=== PATIENT | male | born 1935 | race Caucasian/White ===

== ENCOUNTER 2017-05-19 20:50 | Inpatient (IN) | payer MEDICARE ==
[~2017-05-19] VITALS: Ht 172.7 cm; Wt 89.7 kg
[~2017-05-19 20:50] MED LIST: ACET1TAB12 PO; ASCO500C6 PO; ASPI-973 PO; B1/B1TAB5 PO; CALC-243 PO; CHOL200047 PO; FLAX100010 PO; FOLI1TAB18 PO; LEVO25TA5 PO; MAGN400T4 PO; MULT-1018 PO; NORT50CA PO; PRD5T PO; UBID100T7 PO; methotrexate PO
[2017-05-19 21:01] VITALS: BP 118/69; PULSE 114; RESP 24; O2SAT 95
--- NOTE | 2017-05-19 21:39 | ED.REPORT ---
HPI-Dyspnea / Wheezing Date of Service May 19, 2017 ED Provider: Kvng Gilmore MD The pt is a 81 y/o male w/ a hx of hypothyroidism and osteoarthritis presenting to the ED complaining of a fever. He is also experiencing chills, fatigue, low back pain, SOB, and a cough w/ pink sputum. Denies dysuria. The pt also reports his cough usually being chronic w/ yellow mucus, but is concerned w/ the new pink color he has been seeing lately. The pt reports being put on a 10 day course of antibiotics 6 weeks ago for a molar abscess and having pneumonia 5-6 years ago. Nursing Notes Stated Complaint: HIGH FEVER,FAST PULSE Chief Complaint: Fever Nursing Notes Reviewed: Yes ([employer]LastRoom, Diamond T. Livestocks not reconciled) Allergies: Coded Allergies: Sulfa (Sulfonamide Antibiotics) (Verified Allergy, Severe, rash, 07/30/16) oxycodone (Verified Allergy, Unknown, paradoxical response "not myself", 07/30/16) Scheduled ([methotrexate]) 6 TAB PO only Ascorbic Acid (Vitamin C) 500 Mg Capsule.er 500 MG PO DAILY Aspirin (Aspirin) 81 Mg Tablet 81 MG PO DAILY B1/B2/Niacin/B12/Protease (B-Complex with B-12 Tablet) 1 Each Tablet 1 EACH PO BID Calcium Carbonate/Vitamin D3 (Calcium 600 + Vit D Tablet) 1 Each Tablet 1 EACH PO BID Cholecalciferol (Vitamin D3) (Vitamin D3) 2,000 Unit Capsule 4,000 UNIT PO DAILY Flaxseed (Flaxseed Oil) 1,000 Mg Capsule 1,000 MG PO DAILY Folic Acid (Folic Acid) 1 Mg Tablet 1 MG PO BID Levothyroxine (Levothyroxine) 25 Mcg Tablet 37.5 MCG PO DAILY Magnesium Oxide (Magnesium Oxide) 400 Mg Tablet 650 MG PO DAILY Multivitamin (Multi Vitamin Daily) 1 Each Tablet 1 EACH PO DAILY Nortriptyline (Nortriptyline) 50 Mg Capsule 50 MG PO BID Prednisone (PredniSONE) 5 Mg Tab 5 MG PO DAILY Ubidecarenone (Coenzyme Q10) 100 Mg Tablet 100 MG PO DAILY Scheduled PRN Acetaminophen/Codeine 300-30mg (Tylenol/Codeine #3) 1 Each Tablet 1 EACH PO QID PRN PRN PRN General Time Seen by MD: 21:35 Chief Complaint Other (Fever) Hx Obtained From: Patient, Spouse Arrived By: Walk-in Sudden in Onset?: Yes Symptom Duration: Since onset Recent Healthcare: No recent hospitalization, Recent doctor visit Past Medical History Past Medical History Monoclonal gammopathy of undetermined significance History rheumatoid arthritis on low dose prednisone and methotrexate and Plaquenil Peripheral neuropathy Severe osteoarthritis Hypothyroidism History complete right shoulder rotator cuff tear sign peripheral artery disease Carotid artery stenosis Past Surgical History Bilateral total knee replacement Bilateral total hip arthroplasty Lumbar spine fusion Laminectomy Smoking History Former Smoker (with after 26 years of smoking in the year 1999) Social History Alcohol Use: Denies alcohol use Drug Use: Denies drug use Other Social History: Ambulatory Status Independent Review of Systems Constitutional: Reports: Chills, Fatigue, Fever Respiratory: Reports: Prod cough, brown, Shortness of breath Musculoskeletal: Reports: Back pain (lower ) Complete sys rev & neg: except as marked. Male: Denies Dysuria Physical Exam Fatigued Initial Vital Signs Vital Signs (First) Date Time Temp Pulse Resp B/P Pulse Ox O2 Delivery O2 Flow Rate FiO2 05/19/17 21:01 38 114 24 118/69 95 Room Air Initial VS: Reviewed, Vital signs abnormal Head / Eyes: Atraumatic, Normocephalic, PERRL ENT: Mucous membranes moist, Conjunctiva normal, No scleral icterus Abdomen / GI: Soft, Non-tender Skin: Warm, Dry, No cyanosis Neurologic: Alert, Oriented, Nonfocal Psychiatric: Mood/affect normal, Behavior normal, Normal thought content General/Constitutional: Awake, Alert Neck: Atraumatic, Supple, Full range of motion Respiratory / Chest: Breath sounds = bilat, No respiratory distress Diminished Breath Sounds: Positive: Decreased bilateral Tachypnic Pt can converse Cardiovascular: Heart rate NL, Regular rhythm Heart Sounds / Murmur: Positive: Murmur present... (II/, chronic ) Chronic trace edema controlled w/ compression stockings Interpretation & Diagnostics Lab Results Interpretation Result Diagram: 05/19/17222405/19/172224 Test 05/19/17 22:25 White Blood Count 13.3th/mm3 (3.8-10.1) Red Blood Count 2.77mil/mm3 (4.40-5.80) Hemoglobin 9.0g/dL (13.8-17.2) Hematocrit 29.2% (41.0-50.0) Mean Corpuscular Volume 105fL (81-100) Mean Corpuscular Hemoglobin 32.5pg (27.0-35.0) Mean Corpuscular Hemoglobin Concent 30.8% (32.0-37.0) Red Cell Distribution Width 13.3% (12.3-15.4) Platelet Count 286bil/L (150-400) Neutrophils (%) (Auto) 68.8% (40-74) Lymphocytes (%) (Auto) 23.1% (14-46) Monocytes (%) (Auto) 6.3% (4-12) Eosinophils (%) (Auto) 1.3% (0-5) Basophils (%) (Auto) 0.2% (0-3) Sodium Level 138mEq/L (134-144) Potassium Level 4.0mEq/L (3.5-5.2) Chloride Level 100mEq/L (97-108) Carbon Dioxide Level 22mmol/L (18-29) Blood Urea Nitrogen 23mg/dL (8-27) Creatinine 1.27mg/dL (0.76-1.27) Estimat Glomerular Filtration Rate 58mL/min (>59) Glucose Level 200mg/dL (60-99) Lactic Acid Level 2.1mmol/L (0.4-2.0) Calcium Level 8.4mg/dL (8.5-10.1) Total Bilirubin 0.4mg/dL (0.0-1.2) Aspartate Amino Transf (AST/SGOT) 29U/L (0-50) Alanine Aminotransferase (ALT/SGPT) 19U/L (0-44) Alkaline Phosphatase 82U/L (25-160) Troponin T 0.010ug/L (0.0-0.011) Pro-B-Type Natriuretic Peptide 2326pg/mL (0-486) Total Protein 7.1g/dL (6.4-8.4) Albumin 3.5g/dL (3.4-5.0) Procalcitonin 0.09ng/mL (0.00-0.08) Lab Results Interpretation: CBC positive leukocytosis, mild anemia CMP mild hyperglycemia next and lactic acid marginal elevation ProBNP nonspecific elevation Blood cultures pending ECG Interpretation ECG Interpretation: Rate [address] elevation, consider anterior injury Time: 21:33 Interpreted by: ED physician X-Ray Chest Interpretation Chest Xray Interpretation: IMPRESSION: Question of vascular prominence from fever and tachycardia. No interstitial edema is seen. Patchy bilateral densities could be from extensive bilateral pneumonias as well. Question of 15 mm gallstone in the right upper quadrant Dictated by: Kwan Mariscal M.D. on 05/19/2017 at 22:00 Approved by: Kwan Mariscal M.D. on 05/19/2017 at 22:02 View: Portable, 1 view Interpretation / Wet Read by: Interpret - Radiologist Re-Eval/Medical Decision Med Decision/Clinical Course This is an 81-year-old male on low-dose immunosuppressants with chronic steroid secondary to rheumatoid arthritis who presents complaining of fevers, low bit of cough and shortness of breath. He mainly notices fatigue, then developed chills and his took his temperature noted elevated temperature, to the ED. Here he is noted sat 90-93% in room air reports is only around 96% polys ex- smoker quit in 1999 after 30 years. He denies abdominal pain vomiting diarrhea dysuria rash or additional complaint. Denies chest pain. The patient is febrile, tachycardic as well. His chest x-ray to me is more suspicious for pneumonia, but the differential includes CHF. Laboratories reveal leukocytosis and lactic acid elevation-we does also have a marginal proBNP elevated. However he has a chronic murmur, consistent proBNP may be expected, and I think in the setting of a fever tachycardia and findings concerning for sepsis that antibiotic treatment for probable pneumonia is warranted. The patient resents with community acquired pneumonia, but given the concern for underlying sepsis and immunosuppression hospital protocol for sepsis was initiated. Additionally a stress dose steroid dose was administered. Patient received Tylenol and fluids as well. He is on chronic Tylenol 3, and requested that first Tylenol dosing and it was given. Patient is being admitted for continued antibiotics and management. Source of Hx: Old records Re-Evaluation/Progress : Time of Eval: 22:45 Re-Evaluation/Progress Note: Pt rechecked. Informed pt of need for admission. Pt understands and agrees with plan for admission. All questions addressed. Consultation : Referral / Consult Name: Majo Malin DO Consulted With: Hospitalist Call Returned at: 22:47 Strings Teacher: Will see patient, Agrees with eval, Agrees with plan, Accepts admit Differential Diagnosis: Positive: Pneumonia, Negative: Acute coronary syndrome, Allergic reaction, Cardiogenic shock, Pulmonary embolism, Respiratory failure Counseled Regarding: Diagnosis, Lab results, Need for admission Discharge & Departure Impression: Primary Impression: Pneumonia Pneumonia type: due to unspecified organism Laterality: unspecified laterality Lung location: unspecified part of lung Qualified Code: J18.9 - Pneumonia, unspecified organism Additional Impressions: Sepsis Sepsis type: sepsis due to unspecified organism Qualified Code: A41.9 - Sepsis, unspecified organism Chronic steroid use Disposition: ADMITTED TO HOSPITAL Discharge Condition All VS Reviewed: Yes Condition: Stable Referrals: Tyler Luna MD (PCP) Scribe Attestation Portions of this note were transcribed by Ciro Rivas. I, Dr. Gilmore personally performed the history, physical exam and medical decision-making; I reviewed and confirmed the accuracy of the information in the transcribed note. copies to: Tyler Luna MD, Matthew F MD May 19, 2017 21:39 Ciro Rivas May 19, 2017 22:40
[2017-05-19] MEDS ORDERED: 0.9% Sodium Chloride 1,000 ML IV ONE (21:40)
[2017-05-19] MEDS ORDERED: levoFLOXacin Inj 750 MG in IV Premix 1 EACH IV ONE (22:00)
[2017-05-19] MEDS ORDERED: Azithromycin Inj 500 MG in Dextrose 5% w/Vial Mate 250 ML IV ONE (22:00)
[2017-05-19] MEDS ORDERED: Vancomycin Dose per Pharmacist XX ONE ×2 (22:00→23:45)
[2017-05-19] MEDS ORDERED: Codeine-APAP 30-300 mg Tablet PO ONE (22:00)
[2017-05-19] MEDS ORDERED: Albuterol 2.5 mg/3 mL Inhalation Solution NEB ONE (22:00)
[2017-05-19] MEDS ORDERED: Hydrocortisone 50 mg/mL 2 mL Inj IVPUSH ONE (22:00)
[2017-05-19] MEDS ORDERED: cefTRIAXone Inj 2,000 MG in Dextrose 5% Minibag Plus 50 ML IV ONE (22:00)
[2017-05-19] MEDS ORDERED: Piperacillin-Tazo 3.375 Gm Inj 3.375 GM in Dextrose 5% Minibag Plus 50 ML IV ONE (22:00)
--- NOTE | 2017-05-19 22:05 | DRSVH ---
PROCEDURE: X-RAY CHEST ONE VIEW, PORTABLE ([id number]) INDICATIONS: temp, tachycardia TECHNIQUE: One view of the chest was acquired. COMPARISON: None. FINDINGS: Surgical changes and devices: None. Lungs and pleura: Allowing for angulation of the lordotic portable film the right hemidiaphragm is a gain noted to be elevated. Vasculature is prominent and indistinct as are the joycelyn. The appearance wo uld suggest vascular overload but no interstitial edema or effusion is seen. Bilateral pneumonias can cause a similar appearance.. Mediastinum: Mediastinal contours appear normal. Heart size is normal. Bones and chest wall: No suspicious bony lesions. Overlying soft tissues appear unremarkable. Ther e is a 15 mm calcification in the right upper quadrant suggesting the possibility of a gallstone but something in the GI tract could cause a similar appearance. IMPRESSION: Question of vascular prominence from fever and tachycardia. No interstitial edema is seen . Patchy bilateral densities could be from extensive bilateral pneumonias as well. Question of 15 mm gallstone in the right upper quadrant Dictated by: Kwan Mariscal M.D. on 05/19/2017 at 22:00 Approved by: Kwan Mariscal M.D. on 05/19/2017 at 22:02
[2017-05-19] MEDS ORDERED: Vancomycin Inj 1,500 MG in 0.9% Sodium Chloride 500 ML IV ONE (22:30)
[2017-05-19 22:43] VITALS: PULSE 74; RESP 18; O2SAT 98
[2017-05-19 23:00] LABS: BASOPHILS % (AUTO) 0.2 % (0-3); EOSINOPHILS % (AUTO) 1.3 % (0-5); MONOCYTES % (AUTO) 6.3 % (4-12); Mean Corpuscular Hemoglobin 32.5 pg (27.0-35.0); Mean Corpuscular Volume 105 fL (81-100); NEUTROPHILS % (AUTO) 68.8 % (40-74); Platelet Count 286 bil/L (150-400); TROPONIN T 0.01 ug/L (0.0-0.011)
[2017-05-19 23:29] LABS: APPEARANCE,URINE HAZY (CLEAR,HAZY); COLOR,URINE YELLOW (YELLOW)
[2017-05-19 23:30] LABS: OCCULT BLOOD,URINE NEGATIVE (NEGATIVE); UROBILINOGEN,URINE NORMAL (NORMAL)
[2017-05-19 23:39] VITALS: BP 132/39; PULSE 114; RESP 18; O2SAT 93
[2017-05-19] MEDS ORDERED: 0.9% Sodium Chloride 1,000 ML IV SCH (23:43)
[2017-05-19] MEDS ORDERED: Polyethylene Glycol (PEG) 17 Gm Powder PO PRN (23:45)
[2017-05-19] MEDS ORDERED: Alum-Mag Hydrox-Simeth 30 mL Suspension PO PRN (23:45)
[2017-05-19] MEDS ORDERED: Ondansetron 2 mg/mL 2 mL Inj IVPUSH PRN (23:45)
[2017-05-19] MEDS ORDERED: LACT1CAP65 PO (23:50)
[2017-05-19] MEDS ORDERED: SACC250C PO (23:50)
[2017-05-20] VITALS (11 sets, daily range): BP systolic 118–144; BP diastolic 66–76; PULSE 91–123; RESP 18–22; O2SAT 91–96
[2017-05-20] MEDS: Sodium Chloride LOK Flush 10 mL Syringe IVFLUSH SCH ×3 (00:30→16:53)
--- NOTE | 2017-05-20 00:30 | NUR ---
Admission to [facility] Room 2003 Pt arrived on a gurney with to room 2003 at approximately 0030. ED RN brought pt's next IV ABX up to the room along with the pt. Pt was able to ambulate on own and stand on scale prior to being placed into bed. Pt's VSS and pt is on 1L NC with SpO2 >92%. Pt's lungs have crackles in the lower lobes bilaterally and in the middle lobe on the right side upon auscultation. Pt continues to receive IV ABX and nare swabs for MRSA and PCR have been sent to lab. Pt has a sputum sample cup at the bedside. Pt has had a fall within the last 3 months and therefore has a margarita pad placed under them with a Booth Code of 60 at this time.
[2017-05-20] MEDS ORDERED: 0.9% Sodium Chloride 100 ML ONE (01:09)
[2017-05-20] MEDS: Heparin 5,000 Unit/mL Inj SUBQ SCH ×3 (01:29→16:52)
[2017-05-20 01:36] LABS: Magnesium 2.1 mg/dL (1.6-2.6); Phosphorus 2.1 mg/dL (2.5-4.9)
[2017-05-20 02:46] LABS: BASOPHILS % (AUTO) 0.1 % (0-3); EOSINOPHILS % (AUTO) 0.1 % (0-5); MONOCYTES % (AUTO) 5.5 % (4-12); Mean Corpuscular Hemoglobin 32.4 pg (27.0-35.0); Mean Corpuscular Volume 105.1 fL (81-100); NEUTROPHILS % (AUTO) 87.1 % (40-74); Platelet Count 270 bil/L (150-400)
[2017-05-20] MEDS: Cefepime Inj 2,000 MG in Dextrose 5% Minibag Plus 100 ML IV SCH ×2 (03:12→07:51)
--- NOTE | 2017-05-20 04:29 | PCM.HPMED ---
Subjective Date of Service May 20, 2017 Primary Provider: Admitting Physician: Majo Malin DO Primary Care Physician: Tyler Luna MD Attending Physician: Majo Malin DO Admit Status: From the Emergency Department Chief Complaint: Shortness of breath History of Present Illness: Alice gonzalez 81-year-old gentleman with medical history rheumatoid arthritis, MGUS, on methotrexate, Plaquenil, prednisone chronically, hypertension, chronic neuropathy, presents after having an episode feeling " very cold, and found to have a temperature at home of 101F after a month of worsening shortness of breath and change in chronic cough. Says he always has a dry cough, particularly after he eats he notices he has to clear his throat, he denies any aspiration events in the past. His claims that he has dentures and does not believe he has had any trouble swallowing or any change in his swallowing ability. On presentation in the emergency room temperature of 38 Celsius, pulse 114, respiratory rate 24, blood pressure 118/69, 95% on room air. White count 13.3, hemoglobin 9.0 Electrolytes were normal, glucose 200, lactic acid 2.1, calcium 8.4, pro-BNP 2326, pro calcitonin 0.09. Trop 0.01 Chest x-ray showed no interstitial edema, patchy bilateral densities possibly from extensive bilateral pneumonias, incidentally possible 15 mm gallstone in right upper quadrant. EKG Heart rate 116, sinus rhythm, regular axis, "ST elevation, consider anterior injury" He denies any lightheadedness, dizziness, nausea vomiting diarrhea, chest pain, shortness of breath at rest, change in neuropathy pains, no weakness, no abdominal pain, no change in chronic headaches, no difficulty swallowing. He was admitted to the hospital for sepsis, community-acquired pneumonia however given treatment with methotrexate, Plaquenil, and prednisone he is presumed to be immunosuppressed being treated for MRSA, pseudomonal, and typical organisms. Review of Systems: A comprehensive review of systems was conducted with the patient and found to be negative except as above in the history of presenting illness. Allergies Coded Allergies: Sulfa (Sulfonamide Antibiotics) (Verified Allergy, Severe, rash, 07/30/16) oxycodone (Verified Allergy, Unknown, paradoxical response "not myself", 07/30/16) Home Medications Scheduled ([methotrexate]) 6 TAB PO only Ascorbic Acid (Vitamin C) 500 Mg Capsule.er 500 MG PO DAILY Aspirin (Aspirin) 81 Mg Tablet 81 MG PO DAILY B1/B2/Niacin/B12/Protease (B-Complex with B-12 Tablet) 1 Each Tablet 1 EACH PO BID Calcium Carbonate/Vitamin D3 (Calcium 600 + Vit D Tablet) 1 Each Tablet 1 EACH PO BID Cholecalciferol (Vitamin D3) (Vitamin D3) 2,000 Unit Capsule 4,000 UNIT PO DAILY Flaxseed (Flaxseed Oil) 1,000 Mg Capsule 1,000 MG PO DAILY Folic Acid (Folic Acid) 1 Mg Tablet 1 MG PO BID Levothyroxine (Levothyroxine) 25 Mcg Tablet 37.5 MCG PO DAILY Magnesium Oxide (Magnesium Oxide) 400 Mg Tablet 650 MG PO DAILY Multivitamin (Multi Vitamin Daily) 1 Each Tablet 1 EACH PO DAILY Nortriptyline (Nortriptyline) 50 Mg Capsule 50 MG PO BID Prednisone (PredniSONE) 5 Mg Tab 5 MG PO DAILY Ubidecarenone (Coenzyme Q10) 100 Mg Tablet 100 MG PO DAILY Scheduled PRN Acetaminophen/Codeine 300-30mg (Tylenol/Codeine #3) 1 Each Tablet 1 EACH PO QID PRN PRN PRN PMH Monoclonal gammopathy of undetermined significance History rheumatoid arthritis on low dose prednisone and methotrexate and Plaquenil Peripheral neuropathy Severe osteoarthritis Hypothyroidism History complete right shoulder rotator cuff tear sign peripheral artery disease Carotid artery stenosis Surgical History Bilateral total knee replacement Bilateral total hip arthroplasty Lumbar spine fusion Laminectomy Family History Father from congestive heart failure at age 82. Mother at 65 years old from myocardial infarction. Brother "waiting to " from congestive heart failure. Social History Hx Alcohol Use: Yes (rare) Hx Substance Use: No Hx Tobacco Use: Yes (QUIT 12 YEARS AGO) Smoking Status: Former Smoker (with after 26 years of smoking in the year 1999) Exam Vital Signs Vital Sign - Last Date Time Temp Pulse Resp B/P Pulse Ox O2 Delivery O2 Flow Rate FiO2 05/19/17 23:39 114 18 132/39 93 Nasal Cannula 2 05/19/17 21:01 38 Intake and Output 05/19/17 05/19/17 05/20/17 Cumulative From/Thru 15:00 23:00 07:00 05/19/17 21:01 - 05/19/17 22:09 Intake Total 999 ml 999 ml Balance 999 ml 999 ml Intake IV Total 999 ml 999 ml Exam General: Laying in bed, no apparent distress. HEENT: Normocephalic, atraumatic, EOMI grossly, nasal cannula in place, mucous membranes moist, neck supple without lymphadenopathy, conjunctiva pink. Cardiovascular: Tachycardic, regular rhythm, 4/6 systolic blowing murmur, peripheral pulses 2/4 equal bilateral, upper and lower extremities. Pulmonary: Clear to auscultation bilaterally, faint rails bilateral bases, unable to appreciate any wheeze or rhonchi. Occasional cough. Abdominal: Soft to palpation, bowel sounds present 4, no hepatosplenomegaly. Negative rebound. Extremities: No edema appreciated. No tenderness, asymmetry. Neuro: Neurologically grossly intact, strength is equal bilaterally upper and lower extremities. MSK: Able to move extremities on their own volition, strength 5 out of 5 equal bilaterally to upper and lower extremities. Psych: Appropriate and congruent affect. Alert to person place and time, intact remote memory. Lab and Diagnostics Result Diagram: 05/19/17222405/19/172224 X-Rays, CTs and MRIs Chest x-ray performed 05/19/2017 IMPRESSION: Question of vascular prominence from fever and tachycardia. No interstitial edema is seen. Patchy bilateral densities could be from extensive bilateral pneumonias as well. Question of 15 mm gallstone in the right upper quadrant Dictated by: Kwan Mariscal M.D. on 05/19/2017 at 22:00 12-lead ECG Rate 116, regular rhythm, normal axis, MN interval 116, QTC 405, "Sinus tachycardia. ST elevation, consider anterior injury" Assessment & Plan 81-year-old gentleman with rheumatoid arthritis, MGUS, immunosuppressed with methotrexate, prednisone, Plaquenil presents with 1 month of worsening shortness of breath, change in chronic cough, episode of severe chills and cold sweat, found to have elevated white count and chest x-ray demonstrating findings consistent with pneumonia, admitted for sepsis and treatment of community-acquired pneumonia complicated by immunosuppression. Acute sepsis, present on admission, active White blood count 13.3, lactic acid 2.1, temperature 38, pulse 114, respiratory rate 24. Source identified as pneumonia, treatment as below Recheck lactic acid every 2 hours until normal Blood cultures 2 Normal saline 125 mL per hour Acute Community-acquired pneumonia, present on admission, active Curb 65 score of 1 for age No recent hospitalizations within the last 5 years, however given immunosuppression patient at increased risk for atypical infections. Tx: levofloxacin 750 mg daily, cefepime 2g q12hrs, vancomycin Dosed per Pharm, conferring antipseudomonal, anti-Legionella, MRSA coverage. MRSA screen, urine Legionella and strep pneumonia antigens Respiratory viral PCR Sputum samples Gram stain culture and sensitivity Speech evaluation given history of having to clear his throat after eating Chronic immunosuppression, present on admission, active Continue Plaquenil, continue prednisone, discontinue/hold methotrexate. Infectious disease consultation Elevated BNP, unknown chronicity, present on admission, active BNP 2326 on admission, Patient denies history of congestive heart failure, significant family history coronary artery disease, congestive heart failure. Complete echocardiogram to be performed to assess cardiac structure and function. Repeat chest x-ray in the a.m. to assess pulmonary for edema Acute Leukocytosis, present on admission, active Attributed to pulmonary infection Monitor daily with a.m. labs Acute Elevated blood glucose, present on admission, active Blood glucose 200 on admission, patient denies history of diabetes Hemoglobin A1c Recheck with a.m. labs Chronic rheumatoid arthritis, controlled,. Continue home prednisone MGUS, present on admission, Stable. Continue Plaquenil DVT prophylaxis subcutaneous Heparin GI prophylaxis as needed Pain management: Acetaminophen with codeine continued from home Patient admitted to inpatient status with anticipated length of stay greater than two midnights given complexity diagnosis, necessary treatments, and risk of adverse events. Patient is DNR/DNI GI Prophylaxis: Not indicated VTE Prophylaxis: Sub-Q Heparin (Unfractionated) Resuscitation Status: DNR/DNI:Do Not Resuscitate/Intubate Conner Velazco DO May 20, 2017 00:21
[2017-05-20] MEDS ORDERED: 0.9% Sodium Chloride 1,000 ML IV SCH (05:00)
[2017-05-20] MEDS ORDERED: 0.9% Sodium Chloride 1,000 ML IV PRN (05:28)
--- NOTE | 2017-05-20 06:44 | PCM.CONPHA ---
Subjective Date of Service: May 20, 2017 Requesting Provider: Conner Velazco DO Shortness of breath History of Present Illness sepsis, suspected community acquired pneumonia Reason for Pharmacy Consult: Vancomycin Dosing Objective Assessment/Plan Assessment/Plan A/ - 81 y/o male patient admitted in for sepsis, secondary to community acquired pneumonia and needed Vancomycin therapy for empiric coverage since he is immunosuppressed on prednisone chronically for severe osteoarthritis - Febrile, WBC: 13.3, lactic acid: 2.1/2.4; blood cultures, MRSA (PCR), sputum are pending - In ED, sepsis protocol initiated consisted of Rocephin, Zosyn, Azithromycin, and Vancomycin 1500mg loading dose - Other antibiotics: Levaquin, cefepime - Wt: 96.1, ht: 172.7cm, BMI: 32.2 kg/m2; SCr: 1.27 (baseline), estimated clearance ~ 50 ml/min, t1/2~15 hrs, Vd~58 L P/ - Give Vancomycin 750mg iv q12h. Trough level order before 3rd dose @0030 . This regimen would produce a trough around 18 Pharmacy will continue to monitor daily and make necessary adjustment Thank you for consulting clinical pharmacy in the care of this patient Ari Farrar May 20, 2017 06:43
[2017-05-20] MEDS: Codeine-APAP 30-300 mg Tablet PO PRN ×2 (06:49→16:56)
[2017-05-20] MEDS: Ascorbic Acid 500 mg Tablet PO SCH (07:53)
[2017-05-20] MEDS: Calcium Carbonate (Oyster Shell) 500 mg Tablet PO SCH ×2 (07:54→22:40)
[2017-05-20] MEDS: predniSONE 5 mg Tablet PO SCH (08:03)
[2017-05-20 08:24] LABS: APPEARANCE,URINE HAZY (CLEAR,HAZY); COLOR,URINE STRAW (YELLOW); OCCULT BLOOD,URINE NEGATIVE (NEGATIVE); PH,URINE 5.5 (5.0-8.0); UROBILINOGEN,URINE NORMAL (NORMAL)
[2017-05-20] MEDS ORDERED: FLAXSEED 1000 MG PO SCH (08:30)
[2017-05-20] MEDS ORDERED: levoFLOXacin Inj 750 MG in IV Premix 1 EACH IV SCH (08:30)
[2017-05-20] MEDS ORDERED: UBIDECARENONE 100 MG PO SCH (08:30)
--- NOTE | 2017-05-20 11:16 | NUR ---
Social Work: Initial Assessment/Multidisciplinary Rounds D: Per EMR review, pt is an 81 year old male admitted for pneumonia, sepsis. Pt is Medicare with A[employer] supplement; pt has no LTC or VA insurance. PCP is Tyler Luna MD. NOK is Nessa Knight, , . Advanced directives on file. No RA score entered at this time. Pt discussed in am rounds. Capacity for self care and needs discussed. No concerns or needs identified. Pt has been ambulating and participating in his own self care during admission. MANAGER SEARCH ENGINE met with the patient and at bedside. Sw role explained, contact info and d/c planning checklist provided. Pt lives on [address] with his in a single story home. pt has 5 steps to enter his home in which he is I with. Pt uses a cane and walker for ambulation. Pt continues to drive and is I with all of his own self care at home. Pt has a brief history with Meggan HENRIQUEZ however did not find that this was useful. 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 Pt has never required SNF. Patient and both anticipate pt to be able to return home and to follow up with providers as an outpatient. Pt and are requesting a different attending provider for the patient's care however would not specify as to why. MANAGER SEARCH ENGINE has provided the contact information for a patient advocate and the patient complaint hotline. Attending provider and charge entry specialist made aware of pt/ request. A: Pt who is I at baseline P: Anticipate discharge home once medically stable; MANAGER SEARCH ENGINE to continue to follow to assess for d/c needs. SACHIN Collado Addendum: 05/20/17 at 1124 by LIZ ROBBINS Amended: Links added.
[2017-05-20] MEDS ORDERED: Vancomycin Inj 750 MG in 0.9% Sodium Chloride 250 ML IV SCH (13:00)
[2017-05-20] MEDS ORDERED: Vancomycin Inj 1,250 MG in 0.9% Sodium Chloride 250 ML IV SCH (13:00)
--- NOTE | 2017-05-20 13:06 | DRSVH ---
[facility] [address] [place] [address] Echocardiogram Report Name: OBINNA JOHN Study Date: 05/20/2017 Height: 68 in Hospital Exam Location: [facility] Weight: 212 lb Gender: Male BSA: 2.1 m2 : 1935 Age: 81 yrs BP: 135/73 mmHg Reason For Study: Dyspnea, Elevated BNP Ordering Physician: Performed By: Florencia Solis Referring Physician: Smita Luna Interpretation Summary Left ventricular size is at the upper limits of normal. Left ventricular systolic function is moderately reduced. The ejection fraction is estimated to be 35-40%. Compared to the prior exam, left ventricular function is moderately decreased. There is hypokinesis along the inferior, inferoseptal, and part of the distal anterolateral and apcial lateral wall. Assessment of diastolic parameters suggests a pseudonormalization pattern, consistent with elevated filling pressures. This is significantly increased compared to the previous study. The right ventricle is normal in size and function. The right ventricular systolic pressure is estimated at 57 mmHg assuming a right atrial pressure of 15 mm Hg. The left atrium is moderately dilated. Right atrial size is normal. There is moderate mitral regurgitation. Compared to the prior echo study, there has been an increase in the severity of mitral regurgitation. There is no hemodynamically significant valvular aortic stenosis. The aortic valve is moderately calcified. There is mild aortic regurgitation. Compared to the prior echo study, there has been a decrease in the severity of aortic regurgitation. There is no other significant valvular heart disease. The aortic root is normal size. Procedure: A two-dimensional transthoracic echocardiogram with color flow and Doppler was performed. The study quality was technically adequate. Comparison is made with the echocardiogram of 07/29/2015. The patient was in normal sinus rhythm during the exam. Left Ventricle: Left ventricular size is at the upper limits of normal. Left ventricular wall thickness is at the upper limits of normal. Left ventricular systolic function is moderately reduced. The ejection fraction is estimated to be 35-40%. Compared to the prior exam, left ventricular function is moderately decreased. There is hypokinesis along the inferior, inferoseptal, and part of the distal anterolateral and apcial lateral wall. Assessment of diastolic parameters suggests a pseudonormalization pattern, consistent with elevated filling pressures. This is significantly increased compared to the previous study. Right Ventricle: The right ventricle is normal in size and function. Atria: The left atrium is moderately dilated. Right atrial size is normal. There is no Doppler evidence for an interatrial shunt. Mitral Valve: There is mild mitral annular calcification. The mitral valve leaflets appear mildly thickened, but open well. There is moderate mitral regurgitation. Compared to the prior echo study, there has been an increase in the severity of mitral regurgitation. Aortic Valve: The aortic valve is trileaflet. The aortic valve is moderately calcified. The peak aortic velocity is 2.8 m/sec. The aortic valve mean gradient is 18 mmHg. The peak aortic velocity on the previous exam was 2.6 m/sec. The calculated aortic valve area is 0.97 cm2. The aortic valve area is 1.3 centimeters squared by planimetry. There is no hemodynamically significant valvular aortic stenosis. There is mild aortic regurgitation. Compared to the prior echo study, there has been a decrease in the severity of aortic regurgitation. Tricuspid Valve: The tricuspid valve leaflets are thin and pliable. There is mild tricuspid regurgitation. The right ventricular systolic pressure is estimated at 57 mmHg assuming a right atrial pressure of 15 mm Hg. Pulmonic Valve: The pulmonic valve is normal in structure and function. There is a trace or physiologic amount of pulmonic regurgitation. There is no other significant valvular heart disease. Great Vessels: The aortic root is normal size. The ascending aorta is normal in size. The aortic arch could not be visualized. The pulmonary artery is normal size. The IVC is dilated (diameter is greater than 2.1 cm) and it collapses less than 50% with a sniff. This suggests a high right atrial pressure of 15 mm Hg. Systolic flow reversal noted in hepatic veins. Pericardium/ Pleura There is no pericardial effusion. There is no pleural effusion. MMode/2D Measurements & Calculations LVIDd: 5.8 cm LA A2 area RA long axis: 4.9 cm LVOT diam: 2.1 cm LVIDs: 4.7 cm AoV Openin.79 cm FS: 18.5 % RA area: 15.9 cm Ao root diam: 3.3 cm EPSS: 1.7 cm LA A4 area RA vol: 43.4 ml Aortic Jxn: 2.7 cm IVSd: 0.98 cm RA : 20.7 ml/m2 asc Aorta Diam: 3.1 cm LVPWd: 0.88 cmLA length (vol) LA vol: 93.7 ml LA vol index IVC diam: 2.5 cm EDV(MOD-sp2) SUSIE (plan) LV panda. diameter/BSA LV sys. diameter/BSA : 1.3 cm2 (cm/m^2): 2.8 (cm/m^2): 2.3 ESV(MOD-sp2) EF(MOD-sp2) RVD1 (basal) TAPSE: 2.1 cm Doppler Measurements & Calculations Ao V2 max MV E max bandar MV E/A: 1.4 TR max bandar : 276.5 cm/sec : 123.5 cm/sec Med Peak E' Bandar : 322.3 cm/sec Ao max PG MV A max bandar TR max PG : 30.6 mmHg : 86.5 cm/sec E/E' med: 26.3 : 41.6 mmHg Ao mean PG MV P1/2t: 40.0 msecLat Peak E' Bandar PA V2 max : 17.5 mmHg : 83.4 cm/sec LVOT Max Bandar MR ERO: 0.13 cm2 E/E' lat: 22.6 PA mean PG : 68.5 cm/sec E/e' average: 24.4 PA Accel Time SUSIE(I,D): 0.97 cm : 0.11 sec sev ratio AI P1/2t : 174.2 msec AI dec slope : 568.2 cm/s2c MV dec time MV P1/2t max bandar Ao V2 mean LV V1 max PG : 0.14 sec : 198.6 cm/sec MVA(P1/2t): 5.5 cm2Ao V2 VTI: 49.6 cm LV V1 VTI SUSIE(V,D): 0.87 cm2 : 13.7 cm MR flow rate PA V2 mean SUSIE indexed to BSA : 50.0 cm/sec (cm^2/m^2): 0.46 : 69.1 cm3/sec MR PISA radius Reading Physician:MAURY
--- NOTE | 2017-05-20 14:20 | NUR ---
Evaluation completed. Please go to "Notes" then click on "Assessments and Notes" (bottom left corner of screen). Then select appropriate discipline tab on top of screen.
--- NOTE | 2017-05-20 14:24 | DRSVH ---
PROCEDURE: X-RAY CHEST ONE VIEW, PORTABLE ([id number]) INDICATIONS: respiratory distress TECHNIQUE: One view of the chest was acquired. COMPARISON: [facility], CR, XR CHEST 1VW (PORTABLE), 05/19/2017, 21:30. FINDINGS: Surgical changes and devices: None. Lungs and pleura: Lung volumes have increased and pulmonary interstitial opacities has slightly decre ased. No pleural effusion or pneumothorax. Mediastinum: Mediastinal contours appear normal. Heart size is normal. Bones and chest wall: No suspicious bony lesions. Overlying soft tissues appear unremarkable. IMPRESSION: Decreasing pulmonary edema. Dictated by: Lamine Perry [facility] WITH [facility] Interpreted: Rashad St MD on 05/20/2017 at 9:47 Approved by: Rashad St M.D. on 05/20/2017 at 14:22
[2017-05-20] MEDS: Furosemide 10 mg/mL 2 mL Inj IVPUSH SCH ×2 (15:35→22:39)
--- NOTE | 2017-05-20 16:34 | PCM.PNMED ---
Subjective Date of Service May 20, 2017 Subjective Assessment: Patient sitting up in bed on physical exam. He appears in good spirits. Appears short of breath, having to stop for breath during speaking. States that he is ready to get up and be walking around would like to walk the halls if possible. States that he has not before spent the night in the hospital and is typically uncomfortable doing so. Events Overnight: No acute events overnight. ROS: Shortness of breath. Denies fever/chills, nausea/vomiting, headache, weakness, abdominal pain, chest pain, increased swelling in hands or feet. Exam Vital Signs Vital Sign - Last Date Time Temp Pulse Resp B/P Pulse Ox O2 Delivery O2 Flow Rate FiO2 05/20/17 12:25 36.6 102 18 133/73 91 Nasal Cannula 1.00 Intake and Output 05/19/17 05/19/17 05/20/17 Cumulative From/Thru 15:00 23:00 07:00 05/19/17 21:01 - 05/20/17 06:11 Intake Total 999 ml 546 ml 1545 ml Output Total 1575 ml 1575 ml Balance 999 ml -1029 ml -30 ml Intake Oral 546 ml 546 ml IV Total 999 ml 999 ml Output Urine Total 1575 ml 1575 ml # Voids 5 5 Exam General: No acute distress, well-developed, well-nourished HEENT: Normocephalic, atraumatic. External ears without defect. Pupils equal, round, and reactive to light and accommodation. Anicteric sclerae, moist conjunctivae. Cardiovascular: Regular rate and rhythm with no murmurs, rubs, or gallops appreciated Pulmonary: Fine rales auscultated diffusely over all lung subramanian, minor wheezes. Unable to speak in full sentences. Nasal cannula in place. Abdomen: Bowel tones present. Soft, nontender, nondistended. Extremities: No clubbing, cyanosis, trace edema in the lower legs bilaterally Skin: Normal temperature, turgor, and texture; no rash, ulcers, or subcutaneous nodules appreciated. Neurological: Cranial nerves grossly intact. Reflexes, coordination, and sensory function within normal limits. Normal muscle strength, tone, and bulk. Psychiatric: Normal mood and affect. Alert and oriented to person, place, and time IVs and Medications IV Fluids 1050 mL normal saline delivered with IV medications. Medications Reviewed: Medications were reviewed in detail Lab and Diagnostics Result Diagram: 05/20/17 0235 05/20/17 0235 X-Rays, CTs and MRIs Chest x-ray performed 05/19/2017 IMPRESSION: Question of vascular prominence from fever and tachycardia. No interstitial edema is seen. Patchy bilateral densities could be from extensive bilateral pneumonias as well. Question of 15 mm gallstone in the right upper quadrant Dictated by: Kwan Mariscal M.D. on 05/19/2017 at 22:00 12-lead ECG Rate 116, regular rhythm, normal axis, KS interval 116, QTC 405, "Sinus tachycardia. ST elevation, consider anterior injury Assessment & Plan 81-year-old gentleman with rheumatoid arthritis, MGUS, immunosuppressed with methotrexate, prednisone, Plaquenil presents with 1 month of worsening shortness of breath, change in chronic cough, episode of severe chills and cold sweat, found to have elevated white count and chest x-ray demonstrating findings consistent with pneumonia, admitted for sepsis and treatment of community-acquired pneumonia complicated by immunosuppression. Sepsis, present on admission, active Source identified as pneumonia, treatment as below Lactic acid returned to normal levels Blood cultures 2 Community-acquired pneumonia, present on admission, active No recent hospitalizations within the last 5 years, however given immunosuppression patient at increased risk for atypical infections. Continue levofloxacin 750 mg daily MRSA negative Respiratory viral PCR negative Sputum samples Gram stain culture and sensitivity pending Speech evaluation notes mild dysphasia, soft food diet initiated Chronic immunosuppression, present on admission, active Continue Plaquenil, continue prednisone, hold methotrexate. Infectious disease consultation Systolic congestive heart failure, acute on chronic, present on admission, active BNP 2326 on admission, Patient denies history of congestive heart failure, significant family history coronary artery disease, congestive heart failure. Complete echocardiogram shows decreased heart function compared to previous. Ejection fraction 35-40% Repeat chest x-ray shows decreased pulmonary edema Furosemide started 20 mg twice a day Acute Leukocytosis, present on admission, resolved Attributed to pulmonary infection Monitor daily with a.m. labs Acute Elevated blood glucose, present on admission, active Blood glucose 200 on admission, patient denies history of diabetes Hemoglobin A1c Recheck with a.m. labs Chronic rheumatoid arthritis, controlled,. Continue home prednisone MGUS, present on admission, Stable. Continue Plaquenil DVT prophylaxis subcutaneous Heparin GI prophylaxis as needed Pain management: Acetaminophen with codeine continued from home Disposition: Patient likely remain in the hospital 1-2 days for optimization of congestive heart failure and antibiotic maintenance CODE STATUS: DNR/DNI GI Prophylaxis: Not indicated VTE Prophylaxis: Sub-Q Heparin (Unfractionated) Resuscitation Status: DNR/DNI:Do Not Resuscitate/Intubate Attending Statement The patient was seen and examined together with Dr. Lopez on 05/20/17 and I have added additional information to the note above. Raj Lopez DO May 20, 2017 16:33 Jill Potter DO May 20, 2017 18:44 Raj Lopez DO May 20, 2017 16:33
--- NOTE | 2017-05-20 19:01 | NUR ---
SOB Pt. experienced SOBOE. O2 by NC increased from 1L to 2L. Lasix 20 mg IV given. Total 2000 mL urine output for this shift.
--- NOTE | 2017-05-20 19:17 | DRSVH ---
PROCEDURE: CT CHEST WITHOUT CONTRAST ([id number]) INDICATIONS: SOB,fever TECHNIQUE: Noncontrast 5 mm thick sections acquired from the pulmonary apices to the posterior costophrenic angl es. 7 mm thick coronal and sagittal MIP reformats were then acquired. For radiation dose reduction, the following was used: automated exposure control, adjustment of mA and/or kV according to patient size. COMPARISON: [facility], CR, XR CHEST 1VW (PORTABLE), 05/20/2017, 4:28. Merged with [facility], CR, XR CHEST 1VW (PORTABLE), 05/19/2017, 21:30. FINDINGS: Image quality: Excellent. Lungs and pleura: There is a diffuse patchy pattern of acute air space opacities suggestive of bilat eral pneumonia, likely slightly greater on the right than the left. There slight bilateral pleural ef fusions but no pneumothorax. Central and peripheral airways are patent and normal in caliber. Mediastinum: Heart size is normal. No pericardial effusion. No mediastinal adenopathy by size crit eria. Thoracic aorta and central pulmonary arteries are normal in size. Esophagus is normal in stacy jun. No hiatal hernia. Bones and chest wall: No suspicious bony lesions. No vertebral body compression fractures. No axil giuseppe or supraclavicular adenopathy by size criteria. Thyroid gland is not well-visualized. Abdomen: Visualized upper abdominal solid organs and bowel loops appear normal in the absence of con trast except at the gallbladder or a densely calcified gallstone measuring 1.4 cm in diameter is not associated with biliary distention or acute inflammation of the gallbladder wall. IMPRESSION: Nonspecific patchy bilateral pneumonia pattern, with very small bilateral pleural effusi ons. This appears to have somewhat worsened with reference to the comparison plain films from 05/19/17 . Dictated by: Rashad St M.D. on 05/20/2017 at 19:14 Approved by: Rashad St M.D. on 05/20/2017 at 19:16
--- NOTE | 2017-05-20 19:19 | CONS ---
[address] [address] CONSULTATION REPORT PATIENT: OBINNA JOHN : 1935 MR#: [id number] ADMIT: 05/19/2017 JOB ID: [id number] DATE OF SERVICE: 05/20/2017 REASON FOR CONSULTATION: Bilateral pulmonary infiltrates and fever in a complex immunosuppressed host. I thank Dr. Mariscal for this timely consult. HISTORY OF PRESENT ILLNESS: The patient is an 81-year-old gentleman with a complex medical history including MGUS as well as rheumatoid arthritis, idiopathic peripheral neuropathy and multiple joint replacements as well as lumbar spine surgery. The patient reports that he was in his usual state of reasonably good health until a few days prior to his admission yesterday. Starting a couple days or so before admission, he developed some progressive increasing shortness of breath which was well above his normal baseline mild shortness of breath. This was associated with dry cough but no significant productive sputum except perhaps some mild frothy material. He also noted though that he was experiencing some chills as well as some sweats and low-grade fevers. 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 He had no pleuritic chest pain. No unusual headache, sore throat, or GI symptomatology. After admission here, chest x-ray raised the possibility of pneumonia and he was started on very broad-spectrum antibiotics with vancomycin, Zosyn and levo. He has not recently been in the hospital but is no stranger to medical practice and says he has seen virtually every kind of specialist that exists over the past few years, including, of course, rheumatology for his underlying rheumatoid arthritis. PAST MEDICAL HISTORY: 1. Monoclonal gammopathy of unknown significance. 2. Rheumatoid arthritis treated with low-dose methotrexate, low-dose prednisone, and previously Plaquenil, though he states that has been stopped lately. 3. Idiopathic peripheral neuropathy. 4. Osteoarthritis. 5. Hypothyroidism. 6. Status post bilateral knee and hip replacement. 7. Status post lumbar spine surgery for spinal stenosis. SOCIAL HISTORY: The patient quit smoking 17 years ago. He almost never drinks any alcohol. Does not use recreational drugs. He is and lives in this area. FAMILY HISTORY: Entirely negative for TB, including first- and second-degree relatives. REVIEW OF SYSTEMS: The patient states he has no significant headache at this point. No visual changes which are acute. He has chronic dry eyes for which he used a moisturizing agent. No significant new sore throat, odynophagia or dysphagia. He has had a dry cough which at times has been tinged with pink fluid recently. No pleuritic chest pain. No nausea, vomiting, or diarrhea. No dysuria. No swelling of the joints beyond which is normal for him. No new skin rash. Remainder of the ROS is negative Exposure history is interesting. They do have goats at their house as well as chickens and he is exposed on occasion to both of these animals. He has not travelled really anywhere though and certainly not in the past many years. He has never lived overseas anywhere and his only travel in the past several years was a road trip to [place]. PHYSICAL EXAMINATION: Reveals a gentleman who was febrile, 38.0 when he first hit the ED. He has been afebrile since and his current temperature 36.6, pulse 102, respiratory rate 18, blood pressure 133/73. He is saturating well on 1 L. Examination of the mental status reveals it to be completely clear. Sinuses negative. Eyes without conjunctivitis though the conjunctivae are a bit pale. Nose normal oral. Oral cavity: No thrush, hairy leukoplakia or pharyngitis. No cervical or supraclavicular adenopathy. Neck supple. Lungs with crackles at the bases bilaterally. Cardiac tones distant with a 2/6 systolic murmur heard across the precordium. Regular rate and rhythm. Abdomen is somewhat obese, soft, nontender. BMI 32.2. No hepatosplenomegaly or ascites is noted. He does not have a Oro catheter. Examination of the extremities reveals scars compatible with bilateral hip and knee replacements. None of those joints are warm, tender or with decreased range of motion, however. There is no evidence for significant peripheral edema. Toes are slightly dusky but on palpation are reasonably well perfused in that they are not cold and there is some capillary refill, though perhaps a bit slow. He can move his extremities well. No evidence for skin breakdown or ulceration anywhere. He does not have a Oro catheter. LABORATORIES: Include white count 11,800, down from 13.3. Platelet count 270,000. Creatinine 1.19. LFTs are normal. Procalcitonin is less than 0.1 on two measurements. Urinalysis without white cells. BNP 2300. Hemoglobin A1c not yet available. Serologic studies include negative urine Legionella and pneumococcal antigens. Sputum Gram stain shows no polys, few organisms which are mixed. MRSA screen was negative. Blood cultures on admission negative and respiratory viral PCR panel negative. I carefully reviewed the patient's chest x-ray. It shows bilateral infiltrates which looks more like CHF than any focal pneumonia. Possible of course this is a viral diffuse-type infiltrate or even a diffuse bilateral bacterial or fungal process, though that seems less likely than pulmonary edema or ARDS. IMPRESSION: This is a complex case of an 81-year-old gentleman with longstanding rheumatoid arthritis, who has been on treatment for that for about two decades. He now presents with a relatively rapid worsening of some mild baseline shortness of breath to the point he requires oxygen. This has been associated with a cough productive of some pink sputum as well as initially some fever and chills which are now rapidly resolving. This is a bit of a confusing case in that one could certainly speculate that he does not have an infection based on his negative procalcitonins x2, and rather he has congestive heart failure, rheumatoid lung or methotrexate lung toxicity. The patient does have frothy sputum, an echo which shows a reduced ejection fraction, and a moderately elevated BNP. All of these could certainly produce congestive heart failure which could make this kind of a pattern but would not explain our fever and chills. Also the methotrexate and rheumatoid lung could certainly explain these features, but again, it is hard to understand his fever and chills in association with those processes. If this is an infection, it is a bit of an odd one. A respiratory viral PCR panel is negative and it seems unlikely this is bacterial pneumonia with two procalcitonins less than 0.1, though they were both drawn on the same day but at opposite ends of that same day, and with no evidence of increase. Whether or not this could be a nonbacterial process, such as a fungal process like Pneumocystis, Aspergillus, Mucor or some other fungal infection, or perhaps Nocardia, or perhaps even a Mycobacteria remains unclear and will depend on the duration and severity of his symptoms and whether or not these are useful in the differential diagnosis will depend on the clinical course of his symptoms. RECOMMENDATIONS: 1. I would discontinue all current antibiotics and switch him to just Levaquin orally as a broad-spectrum agent. 2. Repeat a procalcitonin tomorrow morning. 3. I have checked a variety of laboratories this afternoon including an LDH, Fungitell and galactomannan, Aspergillus antibodies, crypto antigen, and I have also taken the liberty of ordering a CT scan of the chest without contrast. 4. I have discussed this case in detail with Dr. Mariscal. 5. I am inclined to believe this is noninfectious, but the fever and chills aspect is somewhat concerning and will bear close watching. 6. If we do not have a good answer to this and the patient is not much improved in the next day or two, Pulmonary consultation may be advisable. RAMSEY
[2017-05-21] VITALS (10 sets, daily range): BP systolic 105–138; BP diastolic 55–71; PULSE 102–122; RESP 18–20; O2SAT 92–96
[2017-05-21] MEDS ORDERED: Vancomycin Serum Trough XX ONE (00:30)
[2017-05-21] MEDS ORDERED: Albuterol-Ipratropium 3 mL Inhalation Solution ONE (00:48)
[2017-05-21] MEDS: Heparin 5,000 Unit/mL Inj SUBQ SCH ×3 (01:48→17:07)
[2017-05-21] MEDS: Sodium Chloride LOK Flush 10 mL Syringe IVFLUSH SCH ×4 (01:48→23:36)
--- NOTE | 2017-05-21 02:22 | NUR ---
Increase Temp/SOB On initial assessment, patients temperature 101.7. Physician paged for order of acetaminophen. Acetaminophen 975mg PO administered. Patient sob with exertion and at rest. Patients requested resp therapy consult. RT called. Physician paged for neb tx. Oxygen increase to 3-4 L NC. Crackles heard on auscultation. HR 121. Lasix 20mg IVP given. Call light within reach. Care continues.
[2017-05-21 02:35] LABS: BASOPHILS % (AUTO) 0.2 % (0-3); EOSINOPHILS % (AUTO) 1.2 % (0-5); MONOCYTES % (AUTO) 8.3 % (4-12); Mean Corpuscular Hemoglobin 32.3 pg (27.0-35.0); Mean Corpuscular Volume 102.7 fL (81-100); NEUTROPHILS % (AUTO) 61.8 % (40-74); Platelet Count 290 bil/L (150-400)
--- NOTE | 2017-05-21 06:24 | NUR ---
Sputum Patient has been coughing up blood streaked sputum throughout shift.
[2017-05-21] MEDS: Albuterol-Ipratropium 3 mL Inhalation Solution NEB PRN (08:13)
[2017-05-21] MEDS: Ascorbic Acid 500 mg Tablet PO SCH (08:59)
[2017-05-21] MEDS: Codeine-APAP 30-300 mg Tablet PO PRN ×2 (09:00→22:12)
[2017-05-21] MEDS: predniSONE 5 mg Tablet PO SCH (09:01)
[2017-05-21] MEDS: levoFLOXacin 750 mg Tablet PO SCH (09:01)
[2017-05-21] MEDS: Furosemide 10 mg/mL 2 mL Inj IVPUSH SCH ×2 (09:01→21:51)
[2017-05-21] MEDS: Calcium Carbonate (Oyster Shell) 500 mg Tablet PO SCH ×2 (09:04→21:52)
--- NOTE | 2017-05-21 10:51 | PROG NOTE ---
[address] [address] PROGRESS NOTE PATIENT: OBINNA JOHN : 1935 MR#: [id number] ADMIT: 05/19/2017 JOB ID: [id number] DATE: 05/21/2017 REASON FOR FOLLOWUP: Bilateral pulmonary infiltrates of unknown etiology, with fever. INTERVAL HISTORY: The patient reports he was not aware of his fever spikes during the night which worked up to 38.7 degrees. He also denies any chills. He notes that his cough was initially productive of pink sputum, is now changed and is a mixture of pink and yellow. He has no pleuritic chest pain. Reports his shortness of breath is no worse than it was when he came in, though he is actually requiring increasing FiO2. He reports no nausea vomiting or diarrhea. He has an excellent appetite. His notes he has also been complaining about headache and backache, but they both believe this is due to spending too much time in bed as he has chronic back pain related to his rheumatoid arthritis. PHYSICAL EXAMINATION: Reveals a gentleman who is afebrile now 37, but he was 38.7 during the night. Pulse is currently 100 and regular, respiratory rate 18, blood pressure 105/60. He is saturating well but now requiring 4 L nasal oxygen. His mental status is completely clear. Oral cavity benign. Eyes without conjunctivitis. Lungs with crackles diffusely bilaterally posteriorly. Cardiac tones without new murmur. Abdomen is soft, nontender. LABORATORIES: Include a white count which has bumped up to 17,000, but the diff is completely normalized. Platelet count 290. Creatinine 1.23, which is stable. LFTs are normal. LDH that we had requested yesterday has come back at 274. Procalcitonin that had been less than 0.1 on two measurements is now 0.6. Urinalysis: No white cells. Serologies are pending including crypto antigen, Fungitell, aspergillus antibodies, and micro studies are pending as well. Today, we have negative blood cultures x4 sets. We also have negative respiratory viral PCR panel, negative MRSA screen, negative pneumococcal and Legionella antigen. Sputum showed no polys whatsoever. IMAGING PROCEDURE: CT of the chest was reviewed and I personally examined this on the computer screen and discussed it with the ICU attending in detail. This shows a very unusual very diffuse pattern with appearance of diffuse ground-glass or maybe even crazy paving infiltrates which extends almost completely through both lung subramanian. This would certainly be an extraordinarily unusual CT scan for a typical bacterial pneumonia but could represent hypersensitivity process (recall the patient was exposed to a great deal of chicken coop dust as well as dust in the yard just prior to admission), rheumatoid lung, methotrexate lung or even to some degree fluid overload. IMPRESSION: This is a very difficult case of a gentleman with underlying rheumatoid arthritis for which he receives methotrexate and low-dose prednisone. He is now admitted with a cough, low-grade fever and chills. He reports he is clinically improving but actually he is continuing to have fevers, and his procalcitonin which had been normal has actually now gone up a bit. I see little here to suggest any sort of conventional bacterial process based on his history, physical and CT scan, and I am concerned about atypical pathogens such as mycobacteria or fungi as well as possibility of hypersensitivity or rheumatoid pneumonitis. RECOMMENDATIONS: 1. I would continue with levofloxacin alone for antibiotic. 2. We await the multiple pending studies. 3. Additional antibiotics or antifungal drugs may be indicated going forward but for right now, I would be inclined to stay where we are in terms of therapy while we pursue additional diagnostics. 4. I would consult Pulmonary at this time as the patient may require bronchoscopy or even a lung biopsy to try and figure out the cause of these unusual infiltrates.
--- NOTE | 2017-05-21 17:38 | PCM.PNMED ---
Subjective Date of Service May 21, 2017 Subjective Subjective: Patient on low-dose oxygen in the room, states that he is feeling much better, is able to complete sentences without any trouble. Denies shortness of breath at this time. States that if he is up and about he does get short of breath and we recommended that he be mildly active within his room at this point. Possibly starting tomorrow he may walk the halls with nurse with O2 monitored. Events Overnight: Patient spiked a fever overnight, Tylenol was given, blood cultures were obtained. ROS: Denies fever/chills, nausea/vomiting, headache, weakness, abdominal pain, chest pain, shortness of breath, increased swelling in hands or feet. Exam Vital Signs Vital Sign - Last Date Time Temp Pulse Resp B/P Pulse Ox O2 Delivery O2 Flow Rate FiO2 05/21/17 17:04 37.4 05/21/17 16:01 113 18 116/67 95 Nasal Cannula 3.00 Intake and Output 05/20/17 05/20/17 05/21/17 Cumulative From/Thru 15:00 23:00 07:00 05/19/17 21:01 - 05/21/17 06:07 Intake Total 869 ml 2220 ml 600 ml 5234 ml Output Total 2000 ml 3575 ml Balance 869 ml 220 ml 600 ml 1659 ml Intake Oral 1372 ml 600 ml 2518 ml IV Total 869 ml 848 ml 2716 ml Output Urine Total 2000 ml 3575 ml # Voids 4 8 17 Exam General: No acute distress, well-developed, well-nourished HEENT: Normocephalic, atraumatic. External ears without defect. Pupils equal, round, and reactive to light and accommodation. Anicteric sclerae, moist conjunctivae. Cardiovascular: Regular rate and rhythm with IV/ systolic murmur, no rubs or gallops appreciated Pulmonary: Fine rales auscultated diffusely over all lung subramanian, mostly prominent in the lower lung subramanian. moderate wheezes in the upper lung subramanian. Unable to speak in full sentences. Nasal cannula in place. Abdomen: Bowel tones present. Soft, nontender, nondistended. Extremities: No clubbing, cyanosis, trace edema in the lower legs bilaterally Skin: Normal temperature, turgor, and texture; no rash, ulcers, or subcutaneous nodules appreciated. Neurological: Cranial nerves grossly intact. Reflexes, coordination, and sensory function within normal limits. Normal muscle strength, tone, and bulk. Psychiatric: Normal mood and affect. Alert and oriented to person, place, and time IVs and Medications Medications Reviewed: Medications were reviewed in detail Lab and Diagnostics Result Diagram: 05/21/1721405/21/17214 X-Rays, CTs and MRIs Chest x-ray performed IMPRESSION: Question of vascular prominence from fever and tachycardia. No interstitial edema is seen. Patchy bilateral densities could be from extensive bilateral pneumonias as well. Question of 15 mm gallstone in the right upper quadrant Dictated by: Kwan Mariscal M.D. on 05/19/2017 at 22:00 CT CHEST WITHOUT CONTRAST IMPRESSION: Nonspecific patchy bilateral pneumonia pattern, with very small bilateral pleural effusions. This appears to have somewhat worsened with reference to the comparison plain films from 05/19/17. Dictated by: Rashad St M.D. on 05/20/2017 at 19:14 Approved by: Rashad St M.D. on 05/20/2017 at 19:16 X-RAY CHEST ONE VIEW, PORTABLE IMPRESSION: Decreasing pulmonary edema. Dictated by: Lamine Perry [facility] Interpreted: Rashad St MD on 05/20/2017 at 9: 47 Approved by: Rashad St M.D. on 05/20/2017 at 14:22 12-lead ECG Rate 116, regular rhythm, normal axis, OK interval 116, QTC 405, "Sinus tachycardia. ST elevation, consider anterior injury Cardiac Echo Impressions Echocardiogram Left ventricular size is at the upper limits of normal. Left ventricular systolic function is moderately reduced. The ejection fraction is estimated to be 35-40%. Compared to the prior exam, left ventricular function is moderately decreased. There is hypokinesis along the inferior, inferoseptal, and part of the distal anterolateral and apcial lateral wall. Assessment of diastolic parameters suggests a pseudonormalization pattern, consistent with elevated filling pressures. This is significantly increased compared to the previous study. The right ventricle is normal in size and function. The right ventricular systolic pressure is estimated at 57 mmHg assuming a right atrial pressure of 15 mm Hg. The left atrium is moderately dilated. Right atrial size is normal. There is moderate mitral regurgitation. Compared to the prior echo study, there has been an increase in the severity of mitral regurgitation. There is no hemodynamically significant valvular aortic stenosis. The aortic valve is moderately calcified. There is mild aortic regurgitation. Compared to the prior echo study, there has been a decrease in the severity of aortic regurgitation. There is no other significant valvular heart disease. The aortic root is normal size. Assessment & Plan 81-year-old gentleman with rheumatoid arthritis, MGUS, immunosuppressed with methotrexate, prednisone, Plaquenil presents with 1 month of worsening shortness of breath, change in chronic cough, episode of severe chills and cold sweat, found to have elevated white count and chest x-ray demonstrating findings consistent with pneumonia, admitted for sepsis and treatment of community-acquired pneumonia complicated by immunosuppression. Sepsis, present on admission, active Source identified as pneumonia, treatment as below Lactic acid returned to normal levels 05/19 Blood cultures 2, no growth. 05/20 blood cultures 2 pending Community-acquired pneumonia, present on admission, active No recent hospitalizations within the last 5 years, however given immunosuppression patient at increased risk for atypical infections. Continue levofloxacin 750 mg daily MRSA negative Respiratory viral PCR negative Sputum samples Gram stain culture shows normal sergey Speech evaluation notes mild dysphasia, soft food diet initiated Spiking fever on the night of 05/20, possibly due to rheumatoid arthritis however infection cannot be ruled out ID following Interstitial lung disease, present on admission, active Possible interstitial disease noted on CT scan, possibly due to rheumatoid arthritis Azithromycin added as immunomodulator Duo nebs every 6 hours PRN Pulmonology consulted Chronic immunosuppression, present on admission, active Continue prednisone, hold methotrexate and Plaquenil. Infectious disease consultation Systolic congestive heart failure, acute on chronic, present on admission, active BNP 2326 on admission, Patient denies history of congestive heart failure, significant family history coronary artery disease, congestive heart failure. Complete echocardiogram shows decreased heart function compared to previous. Ejection fraction 35-40% Repeat chest x-ray showd decreased pulmonary edema Furosemide increased to 40 mg twice a day Acute Leukocytosis, present on admission, resolved Possibly due to pulmonary infection however the patient is currently on steroids for rheumatoid arthritis Acute Elevated blood glucose, present on admission, active Blood glucose 200 on admission, patient denies history of diabetes Hemoglobin A1c Recheck with a.m. labs Chronic rheumatoid arthritis, controlled. Continue home prednisone MGUS, present on admission, Stable. - Patient is no longer taking Plaquenil this has been d/c'd from his home medications DVT prophylaxis subcutaneous Heparin GI prophylaxis as needed Pain management: Acetaminophen with codeine continued from home Disposition: Patient likely remain in the hospital for several days for optimization of congestive heart failure, antibiotic maintenance, and optimization of lung function. CODE STATUS: DNR/DNI GI Prophylaxis: Not indicated VTE Prophylaxis: Sub-Q Heparin (Unfractionated) Resuscitation Status: DNR/DNI:Do Not Resuscitate/Intubate Attending Statement The patient was seen and examined together with Dr. Lopez on 05/21/17 and I have added additional information to the note above. Raj Lopez DO May 21, 2017 17:38 Jill Potter DO May 24, 2017 19:28
--- NOTE | 2017-05-21 18:43 | NUR ---
temp Pt had mild fever this AM even after getting tylenol for pain. Fever peaked at 38, down to 37.4 later. Cardiac: Patient denies chest pain. Tele: SR 100-115 Resp: pt denies SOB, SPO2 mid 90s on 3L: NC. GI/: Patient denies n/v/d. Pt has been incontinent and reticent to use urinal, discussed trying to use urinal while in bed to avoid skin breakdown, pt agreeable. Pt reports feeling constipated, mirilax given. Neuro: A&O x3. CASANOVA. Pt up to chair for meals.
[2017-05-22] VITALS (9 sets, daily range): BP systolic 110–125; BP diastolic 60–72; PULSE 108–121; RESP 16–19; O2SAT 89–97
[2017-05-22] MEDS: Heparin 5,000 Unit/mL Inj SUBQ SCH ×3 (01:09→18:08)
[2017-05-22] MEDS: Albuterol-Ipratropium 3 mL Inhalation Solution NEB PRN (02:44)
[2017-05-22 03:41] LABS: Mean Corpuscular Hemoglobin 32.6 pg (27.0-35.0); Mean Corpuscular Volume 102.6 fL (81-100)
--- NOTE | 2017-05-22 04:40 | NUR ---
Temp/Lasix/Tele Temp 38.5 orally-Tylenol 650mg given along with cold compress to head reducing the temp down to 37.0. Lasix 40mg IVP given with adequate urine output noted with urinal usage. "This Lasix tonight is really working fast." Tele: Sinus Tach hr 121 per process engineering technician. Care ongoing. Addendum: 05/22/17 at 0600 by XIAO PHOENIX RN Tele: ST 113 per process engineering technician.
[2017-05-22] MEDS: Codeine-APAP 30-300 mg Tablet PO PRN ×2 (07:46→20:50)
[2017-05-22] MEDS: predniSONE 5 mg Tablet PO SCH (09:20)
[2017-05-22] MEDS: Furosemide 10 mg/mL 2 mL Inj IVPUSH SCH ×2 (09:20→20:50)
[2017-05-22] MEDS: Ascorbic Acid 500 mg Tablet PO SCH (09:21)
[2017-05-22] MEDS: levoFLOXacin 750 mg Tablet PO SCH (09:21)
[2017-05-22] MEDS: Sodium Chloride LOK Flush 10 mL Syringe IVFLUSH SCH ×3 (09:23→20:53)
[2017-05-22] MEDS: Calcium Carbonate (Oyster Shell) 500 mg Tablet PO SCH ×2 (09:25→20:44)
--- NOTE | 2017-05-22 09:55 | PROG NOTE ---
[address] [address] PROGRESS NOTE PATIENT: OBINNA JOHN : 1935 MR#: [id number] ADMIT: 05/19/2017 JOB ID: [id number] DATE: 05/22/2017 INFECTIOUS DISEASE FOLLOW UP NOTE: REASON FOR FOLLOWUP: Bilateral infiltrates of unknown etiology in a patient with underlying rheumatoid arthritis. INTERVAL HISTORY: The patient reports he had a fever spike again last night. He continues to have a cough productive of brownish sputum but the volume is gradually decreasing. He reports he is less short of breath though he is still requiring 3 L of oxygen which he was not on at home. He states he has a good appetite and urine output and he is now feeling well enough that he wants to go home. His who is sitting next to him, expresses concerns about that as he is still very weak and requiring relatively high flow nasal oxygen which he was not previously receiving. PHYSICAL EXAMINATION: Reveals an afebrile gentleman, temperature 36.6 right now but he was 38.5 again last night. Pulse 110-120. Respiratory rate in the 10s, unlabored. Blood pressure 122/72. He is saturating well on 1 L during the night and now for some reason is on 3 L and I have asked the nurse and respiratory therapist to decrease that inspired oxygen and check his O2 sats. The mental status is clear. Oral cavity negative. He has diffuse fine rales heard posteriorly in both lung subramanian. His cardiac tones without change. Abdomen benign. No skin rash. LABORATORIES: Include white count down to 12,700 this morning. Platelet count 295, creatinine 1.24. LFTs normal. LDH was 274. Procalcitonin is just bouncing between 0.6 and 0.7 at this point. Urinalysis without white cells. ANCA pending. IgE pending. Crypto antigen pending. Fungitell pending. Aspergillus antibodies pending and galactomannan pending. Micro includes extensive negative cultures including negative blood cultures, nasopharyngeal PCR for respiratory viruses, negative nasal PCR for MRSA and sputum cultures which are negative. IMAGING: Includes the chest CT done two days ago which shows a nonspecific patchy unusual pattern. Note that a chest x-ray done a year ago was read as completely normal. IMPRESSION: This is a complicated case of a gentleman with underlying rheumatoid arthritis who recently discontinued hydroxychloroquine which had been one of his main suppressive RA drugs. He now presents with recurrent fevers, a productive cough and some minimal chills. He insists he is steadily improving with respect to all these parameters but is actually still spiking significant fevers and has a moderately elevated procalcitonin in the indeterminate range. At this point, I do not think he has a conventional bacterial process though I would go ahead and complete a week or so of levofloxacin as empiric therapy but I suspect that the answer is more along the lines of rheumatoid lung, methotrexate toxicity, hypersensitivity pneumonitis or INSPECTOR DIALS. RECOMMENDATIONS: 1. This case discussed in detail again this morning with Dr. Woods who plans to repeat another CT in a couple days which I wholeheartedly agree with. 2. Will continue with levofloxacin for now. 3. We await our many pending studies. 4. This patient may yet require a bronchoalveolar lavage and/or lung biopsy.
[2017-05-22] MEDS: Polyethylene Glycol (PEG) 17 Gm Powder PO SCH (11:27)
[2017-05-22] MEDS: Albuterol-Ipratropium 3 mL Inhalation Solution NEB SCH ×2 (11:46→20:18)
--- NOTE | 2017-05-22 11:48 | PCM.PNMED ---
Subjective Date of Service May 22, 2017 Subjective Pulmonary Critical Care Progress Note Hospital day: 4 Overnight patient again spiked fever of 38.5, and this seems to be a trend since his admission. Patient reports his cough has improved and is less productive now with only small amounts of brown colored sputum expectorated. SOB is greatly improved from admission. Patient still feels weak and is requesting PT. The patients echo showed his LVEF is 35-40% and moderately decreased function compared to prior echo. It is the impression of the patient and that of his is that he has benefited from his doses of IV lasix as well from his nebulized therapy. ID is involved and given possible infectious etiology with a moderate procalcitonin of 0.74 today and an overall down trending WBC count of 12.7 down from a high of 16.9. His O2 sat has been in the upper 90's on 3 L NC and has even been recorded at 94% on only 1 L. It is possible he is requiring additional oxygenation when he is active however is sating well on only 1 L while at rest. Several fungal and pneumococcal serologies remain pending as do his ANCA panel and IGE. Patient continues to deny chest pain, REED, Exam Vital Signs Vital Sign - Last Date Time Temp Pulse Resp B/P Pulse Ox O2 Delivery O2 Flow Rate FiO2 05/22/17 09:25 111 05/22/17 03:14 36.6 18 122/72 94 Nasal Cannula 1.00 Intake and Output 05/21/17 05/21/17 05/22/17 Cumulative From/Thru 15:00 23:00 07:00 05/19/17 21:01 - 05/22/17 05:19 Intake Total 700 ml 216 ml 6150 ml Output Total 600 ml 830 ml 5005 ml Balance 100 ml -614 ml 1145 ml Intake Oral 700 ml 216 ml 3434 ml IV Total 2716 ml Output Urine Total 600 ml 830 ml 5005 ml # Voids 4 21 # Bowel Movements 0 0 Exam General: A/O X 3 in no acute distress sitting up in bed and speaking in full sentences. HEAD: NC/AT, eyes PERRLA, EOMI, non injected, mouth mucus membranes moist, dentures upper/lower, no erythema, neck no adenopathy, no JVD Lungs: Crackles heard b/l and worst on the left then the right and involving the mid lung subramanian to bases, No wheezes heard, no other adventitious lung sounds present. Heart: RRR, with grade 3/6 systolic murmur, no clicks, no rubs. Abdomen: Soft, nontender, non distended, no guarding. Genitournary: No Oro, No CVA tenderness Extremities: Pulses equal and symetric b/l U/L Ext. no edema Skin: warm dry intact without rash or erythema. Psych: Mood and affect congruent. IVs and Medications Medications Reviewed: Medications were reviewed in detail Lab and Diagnostics Result Diagram: 05/22/17 0305 05/22/17 0305 X-Rays, CTs and MRIs Chest x-ray performed IMPRESSION: Question of vascular prominence from fever and tachycardia. No interstitial edema is seen. Patchy bilateral densities could be from extensive bilateral pneumonias as well. Question of 15 mm gallstone in the right upper quadrant Dictated by: Kwan Mariscal M.D. on 05/19/2017 at 22:00 CT CHEST WITHOUT CONTRAST IMPRESSION: Nonspecific patchy bilateral pneumonia pattern, with very small bilateral pleural effusions. This appears to have somewhat worsened with reference to the comparison plain films from 05/19/17. Dictated by: Rashad St M.D. on 05/20/2017 at 19:14 Approved by: Rashad St M.D. on 05/20/2017 at 19:16 X-RAY CHEST ONE VIEW, PORTABLE IMPRESSION: Decreasing pulmonary edema. Dictated by: Lamine Perry RRA Interpreted: Rashad St MD on 05/20/2017 at 9: 47 Approved by: Rashad St M.D. on 05/20/2017 at 14:22 12-lead ECG Rate 116, regular rhythm, normal axis, FL interval 116, QTC 405, "Sinus tachycardia. ST elevation, consider anterior injury Cardiac Echo Impressions Echocardiogram Left ventricular size is at the upper limits of normal. Left ventricular systolic function is moderately reduced. The ejection fraction is estimated to be 35-40%. Compared to the prior exam, left ventricular function is moderately decreased. There is hypokinesis along the inferior, inferoseptal, and part of the distal anterolateral and apcial lateral wall. Assessment of diastolic parameters suggests a pseudonormalization pattern, consistent with elevated filling pressures. This is significantly increased compared to the previous study. The right ventricle is normal in size and function. The right ventricular systolic pressure is estimated at 57 mmHg assuming a right atrial pressure of 15 mm Hg. The left atrium is moderately dilated. Right atrial size is normal. There is moderate mitral regurgitation. Compared to the prior echo study, there has been an increase in the severity of mitral regurgitation. There is no hemodynamically significant valvular aortic stenosis. The aortic valve is moderately calcified. There is mild aortic regurgitation. Compared to the prior echo study, there has been a decrease in the severity of aortic regurgitation. There is no other significant valvular heart disease. The aortic root is normal size. Assessment & Plan 81-year-old gentleman with rheumatoid arthritis, MGUS, immunosuppressed with methotrexate, prednisone, Plaquenil presents with 1 month of worsening shortness of breath, change in chronic cough, episode of severe chills and cold sweat, found to have elevated white count and chest x-ray demonstrating findings consistent with pneumonia, admitted for sepsis and treatment of community-acquired pneumonia complicated by immunosuppression. Acute on chronic respiratory failure, possibly secondary pulmonary fibrosis vs hypersensitivity pneumonitis vs Rheumatoid Lung, vs pulmonary edema from cardiac dysfunction, present on admission, active. - CT scan with crazy paving pattern that is non specific. - Echo showed 35-40% LVEF with mitral regurg. LV function moderate decreased from prior echo. - IGE, ANCA panel, Peripheral Eosinophil count, Hypersensitivity Pneumonitis panel for birds, Fungal, and pneumococcal serologies remain pending. - Nasal Eos swab, no eosinophils detected - Hx of Methotrexate and Plaquenil secondary to RA - Continue Azithromycin as immunomodulator - Continue IV antibiotics Levaquin per ID - Continue with scheduled Albuterol Neb therapy as patient is benefiting. - Holding Methotrexate. - Continue IV lasix and taper down as needed. - Patient would benefit from a cardiology consult. Community-acquired pneumonia, present on admission, active No recent hospitalizations within the last 5 years, however given immunosuppression patient at increased risk for atypical infections. Continue levofloxacin 750 mg daily per ID MRSA negative Respiratory viral PCR negative Sputum samples Gram stain culture shows normal sergey Speech evaluation notes mild dysphasia, soft food diet initiated Continues to spike fevers, possibly due to rheumatoid arthritis however infection cannot be ruled out ID following Systolic congestive heart failure, acute on chronic, present on admission, active BNP 2326 on admission, Patient denies history of congestive heart failure, significant family history coronary artery disease, congestive heart failure. Complete echocardiogram shows decreased heart function compared to previous. Ejection fraction 35-40% Repeat chest x-ray showd decreased pulmonary edema Furosemide increased to 40 mg twice a day Sepsis, present on admission, active Source identified as pneumonia, treatment as below Lactic acid returned to normal levels / Blood cultures 2, no growth. 8/ blood cultures 2 pending Chronic immunosuppression, present on admission, active Continue prednisone, hold methotrexate and Plaquenil. Infectious disease consultation Acute Leukocytosis, present on admission, resolved Possibly due to pulmonary infection however the patient is currently on steroids for rheumatoid arthritis Chronic rheumatoid arthritis, controlled,. Continue home prednisone MGUS, present on admission, Stable. Continue Plaquenil GI Prophylaxis: Not indicated VTE Prophylaxis: Sub-Q Heparin (Unfractionated) Resuscitation Status: DNR/DNI:Do Not Resuscitate/Intubate Quoc Louie DO May 22, 2017 11:48 Continue home prednisone MGUS, present on admission, Stable. Continue Plaquenil DVT prophylaxis subcutaneous Heparin GI prophylaxis as needed Pain management: Acetaminophen with codeine continued from home Disposition: Patient likely remain in the hospital 1-2 days for optimization of congestive heart failure, antibiotic maintenance, and optimization of lung function. CODE STATUS: DNR/DNI GI Prophylaxis: Not indicated VTE Prophylaxis: Sub-Q Heparin (Unfractionated) Resuscitation Status: DNR/DNI:Do Not Resuscitate/Intubate Quoc Louie DO May 22, 2017 11:48
[2017-05-22 12:07] LABS: Cryptococcal Ag Negative (Negative)
--- NOTE | 2017-05-22 12:47 | PCM.PNMED ---
Subjective Date of Service May 22, 2017 Subjective Subjective: Patient states that he continues to feel better however remained short of breath. He is not on supplemental oxygen at home but remains on 2 L here in the hospital. He also gained significant benefit from the DuoNeb treatments, which were changed today from PRN to scheduled. Physical therapy also consulted as the patient feels that he is losing muscle mass after having been in the hospital for so long. Events Overnight: No acute events overnight. ROS: Denies fever/chills, nausea/vomiting, headache, weakness, abdominal pain, chest pain, shortness of breath, increased swelling in hands or feet. Exam Vital Signs Vital Sign - Last Date Time Temp Pulse Resp B/P Pulse Ox O2 Delivery O2 Flow Rate FiO2 05/22/17 11:48 111 18 95 Nasal Cannula 1.00 05/22/17 03:14 36.6 122/72 Intake and Output 05/21/17 05/21/17 05/22/17 Cumulative From/Thru 15:00 23:00 07:00 05/19/17 21:01 - 05/22/17 05:19 Intake Total 700 ml 216 ml 6150 ml Output Total 600 ml 830 ml 5005 ml Balance 100 ml -614 ml 1145 ml Intake Oral 700 ml 216 ml 3434 ml IV Total 2716 ml Output Urine Total 600 ml 830 ml 5005 ml # Voids 4 21 # Bowel Movements 0 0 Exam General: No acute distress, well-developed, well-nourished HEENT: Normocephalic, atraumatic. External ears without defect. Pupils equal, round, and reactive to light and accommodation. Anicteric sclerae, moist conjunctivae. Cardiovascular: Regular rate and rhythm with IV/ systolic murmur, no rubs or gallops appreciated Pulmonary: Fine rales auscultated in the lower lung subramanian. moderate wheezes throughout. Able to speak in full sentences today. Nasal cannula in place currently on 2 L. Abdomen: Bowel tones present. Soft, nontender, nondistended. Extremities: No clubbing, cyanosis, trace edema in the lower legs bilaterally Skin: Normal temperature, turgor, and texture; no rash, ulcers, or subcutaneous nodules appreciated. Neurological: Cranial nerves grossly intact. Reflexes, coordination, and sensory function within normal limits. Normal muscle strength, tone, and bulk. Psychiatric: Normal mood and affect. Alert and oriented to person, place, and time IVs and Medications Medications Reviewed: Medications were reviewed in detail Lab and Diagnostics Result Diagram: 05/22/17 0305 05/22/17 0305 X-Rays, CTs and MRIs Chest x-ray performed IMPRESSION: Question of vascular prominence from fever and tachycardia. No interstitial edema is seen. Patchy bilateral densities could be from extensive bilateral pneumonias as well. Question of 15 mm gallstone in the right upper quadrant Dictated by: Kwan Mariscal M.D. on 05/19/2017 at 22:00 CT CHEST WITHOUT CONTRAST IMPRESSION: Nonspecific patchy bilateral pneumonia pattern, with very small bilateral pleural effusions. This appears to have somewhat worsened with reference to the comparison plain films from 05/19/17. Dictated by: Rashad St M.D. on 05/20/2017 at 19:14 Approved by: Rashad St M.D. on 05/20/2017 at 19:16 X-RAY CHEST ONE VIEW, PORTABLE IMPRESSION: Decreasing pulmonary edema. Dictated by: Lamine Perry RRA Interpreted: Rashad St MD on 05/20/2017 at 9: 47 Approved by: Rashad St M.D. on 05/20/2017 at 14:22 12-lead ECG Rate 116, regular rhythm, normal axis, CT interval 116, QTC 405, "Sinus tachycardia. ST elevation, consider anterior injury Cardiac Echo Impressions Echocardiogram Left ventricular size is at the upper limits of normal. Left ventricular systolic function is moderately reduced. The ejection fraction is estimated to be 35-40%. Compared to the prior exam, left ventricular function is moderately decreased. There is hypokinesis along the inferior, inferoseptal, and part of the distal anterolateral and apcial lateral wall. Assessment of diastolic parameters suggests a pseudonormalization pattern, consistent with elevated filling pressures. This is significantly increased compared to the previous study. The right ventricle is normal in size and function. The right ventricular systolic pressure is estimated at 57 mmHg assuming a right atrial pressure of 15 mm Hg. The left atrium is moderately dilated. Right atrial size is normal. There is moderate mitral regurgitation. Compared to the prior echo study, there has been an increase in the severity of mitral regurgitation. There is no hemodynamically significant valvular aortic stenosis. The aortic valve is moderately calcified. There is mild aortic regurgitation. Compared to the prior echo study, there has been a decrease in the severity of aortic regurgitation. There is no other significant valvular heart disease. The aortic root is normal size. Assessment & Plan 81-year-old gentleman with rheumatoid arthritis, MGUS, immunosuppressed with methotrexate, prednisone, Plaquenil presents with 1 month of worsening shortness of breath, change in chronic cough, episode of severe chills and cold sweat, found to have elevated white count and chest x-ray demonstrating findings consistent with pneumonia, admitted for sepsis and treatment of community-acquired pneumonia complicated by immunosuppression. Acute on chronic respiratory failure, possibly secondary pulmonary fibrosis vs hypersensitivity pneumonitis vs Rheumatoid Lung, vs pulmonary edema from cardiac dysfunction, present on admission, active. - CT scan with crazy paving pattern that is non specific. - Echo showed 35-40% LVEF with mitral regurg. LV function moderate decreased from prior echo. - IGE, ANCA panel, Peripheral Eosinophil count, Hypersensitivity Pneumonitis panel for birds, Fungal, and pneumococcal serologies remain pending. - Nasal Eos swab, no eosinophils detected - Hx of Methotrexate and Plaquenil secondary to RA - Continue Azithromycin as immunomodulator - Continue PO antibiotics Levaquin per ID - Scheduled Albuterol Neb therapy - Holding Methotrexate and Plaquenil. - Continue IV lasix and taper down as needed. - Pulmonology consulted, Dr. Curtis saw the patient on 05/22, recommendations appreciated. - Patient is currently on 2 L of oxygen will wean down as tolerated. Interstitial lung disease, present on admission, active Possible interstitial disease noted on CT scan, possibly due to rheumatoid arthritis Azithromycin added as immunomodulator Duo nebs twice a day, also every 4 hours PRN Pulmonology following Sepsis, present on admission, improving Patient initially met criteria for sepsis, however infectious disease and does not believe that there is infectious source at this time. The patient remains on antibiotics as pneumonia cannot be ruled out at this time. Lactic acid returned to normal levels / Blood cultures 2, no growth. / blood cultures 2 pending Community-acquired pneumonia, present on admission, active No recent hospitalizations within the last 5 years, however given immunosuppression patient at increased risk for atypical infections. Continue levofloxacin 750 mg daily MRSA negative Respiratory viral PCR negative Sputum samples Gram stain culture shows normal sergey Speech evaluation notes mild dysphasia, soft food diet initiated Spiking fevers at night, possibly due to rheumatoid arthritis however infection cannot be ruled out ID following Chronic immunosuppression, present on admission, active Continue prednisone, hold methotrexate (patient only takes on ) Infectious disease consultation Systolic congestive heart failure, acute on chronic, present on admission, active BNP 2326 on admission, Patient denies history of congestive heart failure, significant family history coronary artery disease, congestive heart failure. Complete echocardiogram shows decreased heart function compared to previous. Ejection fraction 35-40% Repeat chest x-ray showed decreased pulmonary edema Furosemide increased to 40 mg twice a day Acute Leukocytosis, present on admission, resolved Possibly due to pulmonary infection however the patient is currently on steroids for rheumatoid arthritis Acute Elevated blood glucose, present on admission, active Blood glucose 200 on admission, patient denies history of diabetes Hemoglobin A1c Recheck with a.m. labs Chronic rheumatoid arthritis, controlled,. Continue home prednisone MGUS, present on admission, Stable. -Patient no longer taking Plaquenil this has been d/c'd from his home medications DVT prophylaxis subcutaneous Heparin GI prophylaxis as needed Pain management: Acetaminophen with codeine continued from home Disposition: Patient likely remain in the hospital 1-2 days for optimization of congestive heart failure, antibiotic maintenance, and optimization of lung function. . GI Prophylaxis: Not indicated VTE Prophylaxis: Sub-Q Heparin (Unfractionated) Resuscitation Status: DNR/DNI:Do Not Resuscitate/Intubate Attending Statement The patient was seen and examined together with Dr. Lopez on 05/22/17 and I have added additional information to the note above. Raj Lopez DO May 22, 2017 12:46 Jill Potter DO May 24, 2017 19:21
--- NOTE | 2017-05-22 14:02 | NUR ---
Evaluation completed. Please go to "Notes" then click on "Assessments and Notes" (bottom left corner of screen). Then select appropriate discipline tab on top of screen.
[2017-05-22] MEDS ORDERED: Alum-Mag Hydrox-Simeth 30 mL Suspension PO PRN (16:30)
[2017-05-22 18:07] LABS: Legionella antibodies <0.91 OD ratio (0.00-0.90)
--- NOTE | 2017-05-22 19:26 | PCM.PROC ---
Procedure Note Date of Service: May 22, 2017 Procedure: Procedure: Osteopathic Manipulative Treatment Subjective: Patient is an 81-year-old gentleman who has interstitial lung disease. The patient is currently complaining of constipation which has been going on for the last 3 days. Patient stating that he feels uncomfortable at this time on MiraLAX and senna and still has not had a bowel movement. Risks and benefits of OMT were explained to the patient and verbal consent obtained. Osteopathic Structural Exam: Lumbars: L1-L3 NRlSr Abdomen: Celiac ganglia congestion, superior mesenteric and inferior mesenteric congestion Ribs: With motion restricted more on the left Pelvis: Anterior right innominate Sacrum: Right SIJ restriction at the level of S2, left eye SIJ restriction at the level of S1 Lower extremities: Left-sided Clay points on the IT band Patient responded well to treatment. As stated that he felt a little less constricted and 5 minutes after treatment the patient was reported to have a bowel movement. Osteopathic treatment modalities used: Myofascial release, Muscle Energy, BLT, rib raising, and soft tissue technique Jill Potter DO May 22, 2017 19:26
--- NOTE | 2017-05-22 19:34 | NUR ---
Temp/O2 Pt afebrile all shift till the very end. temp of 37.4, pt declined tylenol at the time. Cardiac: Pt denies CP. Tele: ST 100-105. Pt afebrile this AM. Lasix given this AM. Resp: Pt has some SOB with activity. Denies sob at rest. SPO2 97% on 3L NC at start of shift. Titrated down to 2L, SPO2 maintaining mid to low 90s. Further titrated down to 1L NC, SPO2 93%. GI/: Patient denies n/v/d. Uses urinal with frequency. Mirilax given this AM for constipation. Neuro: AxO 3. CASANOVA. Generalized weakness noted. Pt up ambulating in room with family.
[2017-05-23] VITALS (11 sets, daily range): BP systolic 106–118; BP diastolic 56–68; PULSE 101–124; RESP 18–20; O2SAT 88–94
[2017-05-23] MEDS: Heparin 5,000 Unit/mL Inj SUBQ SCH ×4 (00:13→23:58)
[2017-05-23] MEDS: Codeine-APAP 30-300 mg Tablet PO PRN ×2 (04:26→21:35)
--- NOTE | 2017-05-23 05:51 | NUR ---
Respiratory/ pain Sp02 maintained in the 90s on 2 L NC. PRN Tylenol #3 given for chronic back pain with good relief- pt sleeping intermittently. Care ongoing.
[2017-05-23 06:07] LABS: Mean Corpuscular Hemoglobin 32.1 pg (27.0-35.0); Mean Corpuscular Volume 101.9 fL (81-100)
[2017-05-23] MEDS: Albuterol-Ipratropium 3 mL Inhalation Solution NEB SCH ×2 (08:07→20:35)
[2017-05-23] MEDS: Furosemide 10 mg/mL 2 mL Inj IVPUSH SCH (09:25)
[2017-05-23] MEDS: Polyethylene Glycol (PEG) 17 Gm Powder PO SCH (09:26)
[2017-05-23] MEDS: Ascorbic Acid 500 mg Tablet PO SCH (09:26)
[2017-05-23] MEDS: predniSONE 5 mg Tablet PO SCH (09:27)
[2017-05-23] MEDS: levoFLOXacin 750 mg Tablet PO SCH (09:28)
[2017-05-23] MEDS: Calcium Carbonate (Oyster Shell) 500 mg Tablet PO SCH ×2 (09:28→21:36)
[2017-05-23] MEDS: Sodium Chloride LOK Flush 10 mL Syringe IVFLUSH SCH ×3 (09:28→23:57)
--- NOTE | 2017-05-23 10:44 | PROG NOTE ---
[address] [address] PROGRESS NOTE PATIENT: OBINNA JOHN : 1935 MR#: [id number] ADMIT: 05/19/2017 JOB ID: [id number] DATE: 05/23/2017 INFECTIOUS DISEASE FOLLOW UP NOTE: REASON FOR FOLLOWUP: Pulmonary infiltrates in a patient with underlying rheumatoid arthritis. INTERVAL HISTORY: Overnight, the patient reports no fevers, chills or sweats. His breathing continues to improve. When I encountered him this morning, he was walking the halls fairly briskly using a walker and was able to move up and down stairs without any difficulty. PHYSICAL EXAMINATION: Reveals an afebrile gentleman, temperature 36.7, pulse 113, respiratory rate 19, blood pressure 117/68. He is saturating well on 2.5 L this morning. His mental status is clear. No skin rash noted. Lungs still with crackles posteriorly. No other notable new abnormalities. LABORATORIES: Include white count stable at 13,000, platelets 305. Creatinine 1.36. Cryptococcal antigen negative. Fungitell pending. Aspergillus antibody and Aspergillus antigen pending. ANCA pending. Micro studies include negative blood cultures, negative MRSA screen of the nares, negative respiratory culture. IMAGING: Includes a chest CT which has been previously discussed and reviewed. Shows patchy atypical pulmonary infiltrates. IMPRESSION: This is a gentleman with underlying rheumatoid arthritis who is on low-dose prednisone and methotrexate. He presents with recurrent fevers and some productive cough. His fevers are gradually improving, and at this point, they have resolved as of about 48 hours ago. I continue to wonder whether this is a conventional bacterial process at all and I am certainly concerned about rheumatoid lung and/or methotrexate lung injury. Other possibilities here might include hypersensitivity given his recent exposure to a great deal of dust just prior to the onset of symptoms. It is also worth noting that he recently stopped hydroxychloroquine which he had taken for two decades and found to be a very effective rheumatoid arthritis drug. RECOMMENDATIONS: 1. I agree with Dr. Woods that we should repeat a CT scan in the near future to try and determine whether or not he is ready for discharge. 2. Will continue with oral levo for now as our sole antibiotic. 3. We await our multiple pending studies.
--- NOTE | 2017-05-23 13:51 | NUR ---
Social Work: Readiness for Discharge/Multidisciplinary Rounds D: Pt discussed in multidisciplinary Rounds; pt is not medically stable for discharge at this time. PT was able to work with the patient today and is recommending HH; pt ambulated 120 feet SBA. Per PT notes, pt declined HH. This is consistent with what he and his had reported to this [employer] FACILITY OPERATOR on initial assessment. [employer] FACILITY OPERATOR met with the patient at bedside to confirm discharge plan and review PT notes/recs. Pt continues to decline HH and understands that potential risks of going home without supportive services. Pt states that he understands and still does not want this service. Pt identifies no other sw needs or barriers for discharge. A: Pt who is I at baseline. P: Anticipate pt to discharge home via POV and no sw needs; pt declined HH. [employer] W[employer] FACILITY OPERATOR to continue to follow to assess for d/c needs. SACHIN Collado
--- NOTE | 2017-05-23 16:25 | PCM.PNMED ---
Subjective Date of Service May 23, 2017 Subjective Pulmonary Progress Note Hospital day:5 Overnight: Patient did well, and has not spiked any further fever in 36 hours. He has been ambulating in the hallways with assist. Galactomannan returned 0.88 and discussed this with Dr. Savage, who states patient was on Pip-Tazo. Reports his cough continues to improve. SOB continues to improve as does his ability to tolerate activities. Still with some generalized weakness although this is also improving. He is motivated to discharge when able. Switched to PO Lasix for maintenance in preparation for discharge by primary medical team. Today would be the first day that he would be missing his Methotrexate which is dosed every . WBC count of 13.4 toay. His O2 sat continues in the upper 90's on 3 L NC. Several fungal and pneumococcal serologies remain pending as do his ANCA panel and IGE. Exam Vital Signs Vital Sign - Last Date Time Temp Pulse Resp B/P Pulse Ox O2 Delivery O2 Flow Rate FiO2 05/23/17 12:08 36.9 110 18 117/61 88 Nasal Cannula 1.50 Intake and Output 05/22/17 05/22/17 05/23/17 Cumulative From/Thru 15:00 23:00 07:00 05/19/17 21:01 - 05/23/17 05:22 Intake Total 1280 ml 668 ml 8098 ml Output Total 1050 ml 950 ml 7005 ml Balance 230 ml -282 ml 1093 ml Intake Oral 1280 ml 668 ml 5382 ml IV Total 2716 ml Output Urine Total 1050 ml 950 ml 7005 ml # Voids 3 24 # Bowel Movements 1 1 Exam General: A/O X 3 in no acute distress sitting in bedside chair and speaking in full sentences. HEAD: NC/AT, eyes PERRLA, EOMI, non injected, mouth mucus membranes moist, dentures upper/lower, no erythema, neck no adenopathy, no JVD Lungs: Crackles heard b/l and worst on the left then the right and involving the mid lung subramanian to bases, No wheezes heard, no other adventitious lung sounds present. Lung auscultation overall improved from admission. Heart: RRR, with grade 3/6 systolic murmur, no clicks, no rubs. Abdomen: Soft, nontender, non distended, no guarding. Genitournary: No Oro, No CVA tenderness Extremities: Pulses equal and symetric b/l U/L Ext. no edema Skin: warm dry intact without rash or erythema. Psych: Mood and affect congruent. IVs and Medications Medications Reviewed: Medications were reviewed in detail Lab and Diagnostics Result Diagram: 05/23/17 0600 05/23/17 0600 X-Rays, CTs and MRIs Chest x-ray performed IMPRESSION: Question of vascular prominence from fever and tachycardia. No interstitial edema is seen. Patchy bilateral densities could be from extensive bilateral pneumonias as well. Question of 15 mm gallstone in the right upper quadrant Dictated by: Kwan Mariscal M.D. on 05/19/2017 at 22:00 CT CHEST WITHOUT CONTRAST IMPRESSION: Nonspecific patchy bilateral pneumonia pattern, with very small bilateral pleural effusions. This appears to have somewhat worsened with reference to the comparison plain films from 05/19/17. Dictated by: Rashad St M.D. on 05/20/2017 at 19:14 Approved by: Rashad St M.D. on 05/20/2017 at 19:16 X-RAY CHEST ONE VIEW, PORTABLE IMPRESSION: Decreasing pulmonary edema. Dictated by: Lamine Perry RRA Interpreted: Rashad St MD on 05/20/2017 at 9: 47 Approved by: Rashad St M.D. on 05/20/2017 at 14:22 12-lead ECG Rate 116, regular rhythm, normal axis, DE interval 116, QTC 405, "Sinus tachycardia. ST elevation, consider anterior injury Cardiac Echo Impressions Echocardiogram Left ventricular size is at the upper limits of normal. Left ventricular systolic function is moderately reduced. The ejection fraction is estimated to be 35-40%. Compared to the prior exam, left ventricular function is moderately decreased. There is hypokinesis along the inferior, inferoseptal, and part of the distal anterolateral and apcial lateral wall. Assessment of diastolic parameters suggests a pseudonormalization pattern, consistent with elevated filling pressures. This is significantly increased compared to the previous study. The right ventricle is normal in size and function. The right ventricular systolic pressure is estimated at 57 mmHg assuming a right atrial pressure of 15 mm Hg. The left atrium is moderately dilated. Right atrial size is normal. There is moderate mitral regurgitation. Compared to the prior echo study, there has been an increase in the severity of mitral regurgitation. There is no hemodynamically significant valvular aortic stenosis. The aortic valve is moderately calcified. There is mild aortic regurgitation. Compared to the prior echo study, there has been a decrease in the severity of aortic regurgitation. There is no other significant valvular heart disease. The aortic root is normal size. Assessment & Plan 81-year-old gentleman with rheumatoid arthritis, MGUS, immunosuppressed with methotrexate, prednisone, Plaquenil presents with 1 month of worsening shortness of breath, change in chronic cough, episode of severe chills and cold sweat, found to have elevated white count and chest x-ray demonstrating findings consistent with pneumonia, admitted for sepsis and treatment of community-acquired pneumonia complicated by immunosuppression. Acute on chronic respiratory failure, possibly secondary pulmonary fibrosis vs hypersensitivity pneumonitis vs Rheumatoid Lung, vs pulmonary edema from cardiac dysfunction, present on admission, active. - CT scan with crazy paving pattern that is non specific. - Echo showed 35-40% LVEF with mitral regurg. LV function moderate decreased from prior echo. - IGE, ANCA panel, Peripheral Eosinophil count, Hypersensitivity Pneumonitis panel for birds, Fungal, and pneumococcal serologies remain pending. - Galactomannan elevated 0.88 however this is likely related to cross reactivity with Zosyn. Still awaiting Aspergillus antibody results. - Nasal Eos swab, no eosinophils detected - Hx of Methotrexate and Plaquenil secondary to RA - Continue Azithromycin as immunomodulator - Continue PO antibiotics Levaquin per ID - Scheduled Albuterol Neb therapy - Holding Methotrexate and Plaquenil. - lasix changed from IV dose to 40 mg PO daily for maintenance. - Today would be first day of hold on Methotrexate as he is dosed every . - Continue to ambulate with assist as tolerated. - Will recommend road test to evaluate for outpatient O2 - Repeat CT chest w/o contrast ordered and pending for 05/24/17 - Will defer to ID to repeat Galactomannan Interstitial lung disease, present on admission, active - Possible interstitial disease noted on CT scan, possibly due to rheumatoid arthritis - Azithromycin added as immunomodulator - Duo nebs twice a day, also every 4 hours PRN Sepsis, present on admission, improving - Patient initially met criteria for sepsis, however infectious disease and does not believe that there is infectious source at this time. - The patient remains on antibiotics as pneumonia cannot be ruled out at this time. - Lactic acid returned to normal levels - / Blood cultures 2, no growth. - 05/20 blood cultures 2 pending Community-acquired pneumonia, present on admission, active - No recent hospitalizations within the last 5 years, however given immunosuppression patient at increased risk for atypical infections. - Continue levofloxacin 750 mg daily - MRSA negative - Respiratory viral PCR negative - Galactomannan elevated 0.88 however this is likely related to cross reactivity with Zosyn - Sputum samples Gram stain culture shows normal sergey - Speech evaluation notes mild dysphasia, soft food diet initiated - No fevers in 36 hours - ID following Chronic immunosuppression, present on admission, active - Hold methotrexate and Plaquenil. - Patient on Prednisone 5 mg daily at home - Galactomannan elevated 0.88 however this is likely related to cross reactivity with Zosyn. Still awaiting Aspergillus antibody results. Systolic congestive heart failure, acute on chronic, present on admission, active BNP 2326 on admission, Patient denies history of congestive heart failure, significant family history coronary artery disease, congestive heart failure. Complete echocardiogram shows decreased heart function compared to previous. Ejection fraction 35-40% Repeat CXR showed decreased pulmonary edema Furosemide switched to 40 m PO daily Acute Leukocytosis, present on admission, resolved Possibly due to pulmonary infection however the patient is currently on steroids for rheumatoid arthritis Acute Elevated blood glucose, present on admission, active Blood glucose 200 on admission, patient denies history of diabetes Hemoglobin A1c Recheck with a.m. labs Chronic rheumatoid arthritis, controlled,. Takes Prednisone 5 mg daily at home MGUS, present on admission, Stable. Continue Plaquenil DVT prophylaxis subcutaneous Heparin GI prophylaxis as needed Pain management: Acetaminophen with codeine continued from home GI Prophylaxis: Not indicated VTE Prophylaxis: Sub-Q Heparin (Unfractionated) Resuscitation Status: DNR/DNI:Do Not Resuscitate/Intubate Attending Statement The patient was seen and examined together with Dr. Louie on 05/23/2017 and I agree with the history, exam and plan as outlined in the note above. Quoc Louie DO May 23, 2017 16:25 Andrew Woods MD May 30, 2017 10:16 Quoc Louie DO May 23, 2017 16:25
--- NOTE | 2017-05-23 17:30 | PCM.PNMED ---
Subjective Date of Service May 23, 2017 Subjective Subjective: Sitting up in bed on exam. Patient states that he is feeling better today. Physical therapy came to see him and he was surprised at his ability to move through the [facility]. Events Overnight: No acute events overnight. ROS: Denies fever/chills, nausea/vomiting, headache, weakness, abdominal pain, chest pain, shortness of breath, increased swelling in hands or feet. Exam Vital Signs Vital Sign - Last Date Time Temp Pulse Resp B/P Pulse Ox O2 Delivery O2 Flow Rate FiO2 05/23/17 16:20 37.1 101 18 108/56 92 Nasal Cannula 1.50 Intake and Output 05/22/17 05/22/17 05/23/17 Cumulative From/Thru 15:00 23:00 07:00 05/19/17 21:01 - 05/23/17 05:22 Intake Total 1280 ml 668 ml 8098 ml Output Total 1050 ml 950 ml 7005 ml Balance 230 ml -282 ml 1093 ml Intake Oral 1280 ml 668 ml 5382 ml IV Total 2716 ml Output Urine Total 1050 ml 950 ml 7005 ml # Voids 3 24 # Bowel Movements 1 1 Exam General: No acute distress, well-developed, well-nourished HEENT: Normocephalic, atraumatic. External ears without defect. Pupils equal, round, and reactive to light and accommodation. Anicteric sclerae, moist conjunctivae. Cardiovascular: Regular rate and rhythm with systolic murmur, no rubs or gallops appreciated Pulmonary: Fine rales auscultated in the lower lung subramanian. moderate wheezes throughout. Able to speak in full sentences today. Nasal cannula in place currently on 1 L. Abdomen: Bowel tones present. Soft, nontender, nondistended. Extremities: No clubbing, cyanosis, or edema Skin: Normal temperature, turgor, and texture; no rash, ulcers, or subcutaneous nodules appreciated. Neurological: Cranial nerves grossly intact. Reflexes, coordination, and sensory function within normal limits. Normal muscle strength, tone, and bulk. Psychiatric: Normal mood and affect. Alert and oriented to person, place, and time IVs and Medications Medications Reviewed: Medications were reviewed in detail Lab and Diagnostics Result Diagram: 05/23/17 0600 05/23/17 0600 X-Rays, CTs and MRIs Chest x-ray performed IMPRESSION: Question of vascular prominence from fever and tachycardia. No interstitial edema is seen. Patchy bilateral densities could be from extensive bilateral pneumonias as well. Question of 15 mm gallstone in the right upper quadrant Dictated by: Kwan Mariscal M.D. on 05/19/2017 at 22:00 CT CHEST WITHOUT CONTRAST IMPRESSION: Nonspecific patchy bilateral pneumonia pattern, with very small bilateral pleural effusions. This appears to have somewhat worsened with reference to the comparison plain films from 05/19/17. Dictated by: Rashad St M.D. on 05/20/2017 at 19:14 Approved by: Rashad St M.D. on 05/20/2017 at 19:16 X-RAY CHEST ONE VIEW, PORTABLE IMPRESSION: Decreasing pulmonary edema. Dictated by: Lamine Perry [facility] Interpreted: Rashad St MD on 05/20/2017 at 9: 47 Approved by: Rashad St M.D. on 05/20/2017 at 14:22 12-lead ECG Rate 116, regular rhythm, normal axis, TN interval 116, QTC 405, "Sinus tachycardia. ST elevation, consider anterior injury Cardiac Echo Impressions Echocardiogram Left ventricular size is at the upper limits of normal. Left ventricular systolic function is moderately reduced. The ejection fraction is estimated to be 35-40%. Compared to the prior exam, left ventricular function is moderately decreased. There is hypokinesis along the inferior, inferoseptal, and part of the distal anterolateral and apcial lateral wall. Assessment of diastolic parameters suggests a pseudonormalization pattern, consistent with elevated filling pressures. This is significantly increased compared to the previous study. The right ventricle is normal in size and function. The right ventricular systolic pressure is estimated at 57 mmHg assuming a right atrial pressure of 15 mm Hg. The left atrium is moderately dilated. Right atrial size is normal. There is moderate mitral regurgitation. Compared to the prior echo study, there has been an increase in the severity of mitral regurgitation. There is no hemodynamically significant valvular aortic stenosis. The aortic valve is moderately calcified. There is mild aortic regurgitation. Compared to the prior echo study, there has been a decrease in the severity of aortic regurgitation. There is no other significant valvular heart disease. The aortic root is normal size. Assessment & Plan 81-year-old gentleman with rheumatoid arthritis, MGUS, immunosuppressed with methotrexate, prednisone, Plaquenil presents with 1 month of worsening shortness of breath, change in chronic cough, episode of severe chills and cold sweat, found to have elevated white count and chest x-ray demonstrating findings consistent with pneumonia, admitted for sepsis and treatment of community-acquired pneumonia complicated by immunosuppression. Acute on chronic respiratory failure, possibly secondary pulmonary fibrosis vs hypersensitivity pneumonitis vs Rheumatoid Lung, vs pulmonary edema from cardiac dysfunction, present on admission, active. - CT scan with significant irregularly shaped paving pattern that is non specific. - Echo showed 35-40% LVEF with mitral regurg. LV function moderate decreased from prior echo. - ANCA panel, Peripheral Eosinophil count, Hypersensitivity Pneumonitis panel for birds, Fungal, and pneumococcal serologies remain pending. - IgE within normal levels, galactomannan antigen positive, per pulmonology this is likely due to a cross reaction with Zosyn which the patient received on 05/19 - Nasal Eos swab, no eosinophils detected - Hx of Methotrexate and Plaquenil secondary to RA - Azithromycin discontinued per ID - Continue PO antibiotics Levaquin per ID - Scheduled Albuterol Neb therapy - Holding Methotrexate and Plaquenil. - IV Lasix changed to 40 PO - Pulmonology consulted, Dr. Curtis saw the patient on 05/22, recommendations appreciated. - Patient is currently on 1 L of oxygen will wean down as tolerated. Interstitial lung disease, present on admission, active Possible interstitial disease noted on CT scan, possibly due to rheumatoid arthritis Based on recommendations from ID and pulmonology will repeat CT scan on 05/24 in preparation for discharge. Azithromycin added as immunomodulator, however discontinued by ID on 05/23 Duo nebs twice a day, also every 4 hours PRN Pulmonology consulted Sepsis, present on admission, improving Patient initially met criteria for sepsis, however discussed with infectious disease (Dr. Savage) who does not believe that there is infectious source at this time. The patient remains on antibiotics as pneumonia cannot be ruled out at this time. Lactic acid returned to normal levels 05/19 Blood cultures 2, no growth. 05/20 blood cultures 2 no growth Community-acquired pneumonia, present on admission, active No recent hospitalizations within the last 5 years, however given immunosuppression patient at increased risk for atypical infections. Continue levofloxacin 750 mg daily MRSA negative Respiratory viral PCR negative Sputum samples Gram stain culture shows normal sergey Speech evaluation notes mild dysphasia, soft food diet initiated Spiking fevers at night, possibly due to rheumatoid arthritis however infection cannot be ruled out ID following Chronic immunosuppression, present on admission, active Continue prednisone, hold methotrexate and Plaquenil. Infectious disease consultation Systolic congestive heart failure, acute on chronic, present on admission, active BNP 2326 on admission, Patient denies history of congestive heart failure, significant family history coronary artery disease, congestive heart failure. Complete echocardiogram shows decreased heart function compared to previous. Ejection fraction 35-40% Repeat chest x-ray showed decreased pulmonary edema Furosemide 40 mg PO daily Acute Leukocytosis, present on admission, resolved Possibly due to pulmonary infection however the patient is currently on steroids for rheumatoid arthritis Acute Elevated blood glucose, present on admission, active Blood glucose 200 on admission, patient denies history of diabetes Hemoglobin A1c 6.1 Checking sugars with a.m. labs Chronic rheumatoid arthritis, controlled,. Continue home prednisone MGUS, present on admission, Stable. Hold Plaquenil DVT prophylaxis: subcutaneous Heparin GI prophylaxis as needed Pain management: Acetaminophen with codeine continued from home Disposition: Patient likely remain in the hospital 1-2 days for optimization of congestive heart failure, antibiotic maintenance, and optimization of lung function. GI Prophylaxis: Not indicated VTE Prophylaxis: Sub-Q Heparin (Unfractionated) Resuscitation Status: DNR/DNI:Do Not Resuscitate/Intubate Attending Statement The patient was seen and examined together with Dr. Lopez on 05/23/17 and I have added additional information to the note above. Raj Lopez DO May 23, 2017 17:30 Jill Potter DO May 24, 2017 19:14
--- NOTE | 2017-05-23 19:31 | NUR ---
O2/Thrush/activity Cardiac: Pt denies CP. Tele: ST 100-115, up to 125 when walking in halls with PT. Pt afebrile this AM. Lasix given this AM. Resp: Pt had inadvertently displaced his NC this AM at start of shift, SPO2 on room air 85%, it took some time to reoxygenate and pt left on 3L NC for breakfast. Pt desats to mid 80s at times when walking with PT and staff, but is asymptomatic, O2 turned down to 2L NC, SPo2 92%. Pt reports he is having symptoms of thrush, which he has had before. Dr Lopez aware. GI/: pt denies n/v, had small bowel movement this AM after mirilax given. Neuro: AxO 3. CASANOVA. Generalized weakness noted. Pt up ambulating in the halls with standby assist and up in chair for meals.
[2017-05-23] MEDS: Nystatin 100,000 Unit/mL 5 mL Suspension PO SCH (21:34)
[2017-05-24 02:43] LABS: Mean Corpuscular Hemoglobin 32.6 pg (27.0-35.0); Mean Corpuscular Volume 101.9 fL (81-100)
[2017-05-24 03:39] VITALS: BP 107/63; PULSE 92; RESP 20; O2SAT 97
[2017-05-24 04:58] VITALS: PULSE 94
--- NOTE | 2017-05-24 06:06 | NUR ---
Thrush / Respiratory / Pain At HS, patient and patient's requesting medication for oral thrush; patient reported consistent increase in tenderness while eating. MD paged, orders obtained for nystatin swish and swallow. Patient reported pain at HS to legs and back; one tylenol with codeine administered with patient reporting relief on reassessment. No further c/o pain this shift. VSS, tele ST 110s. 2L NC throughout shift with SpO2 92-94%.
[2017-05-24 08:05] VITALS: BP 104/57; PULSE 95; RESP 12; O2SAT 94
[2017-05-24 08:09] VITALS: PULSE 94
[2017-05-24] MEDS: Nystatin 100,000 Unit/mL 5 mL Suspension PO SCH ×2 (08:11→13:12)
[2017-05-24] MEDS: Heparin 5,000 Unit/mL Inj SUBQ SCH (08:17)
[2017-05-24] MEDS: Polyethylene Glycol (PEG) 17 Gm Powder PO SCH (08:17)
[2017-05-24] MEDS: predniSONE 5 mg Tablet PO SCH (08:18)
[2017-05-24] MEDS: levoFLOXacin 750 mg Tablet PO SCH (08:27)
[2017-05-24] MEDS: Ascorbic Acid 500 mg Tablet PO SCH (08:27)
[2017-05-24] MEDS: Calcium Carbonate (Oyster Shell) 500 mg Tablet PO SCH (08:27)
[2017-05-24] MEDS: Codeine-APAP 30-300 mg Tablet PO PRN ×2 (08:27→13:24)
[2017-05-24] MEDS: Sodium Chloride LOK Flush 10 mL Syringe IVFLUSH SCH (08:28)
[2017-05-24] MEDS ORDERED: 0.9% Sodium Chloride 250 ML IV ONE (08:35)
[2017-05-24 08:42] VITALS: PULSE 95; RESP 20; O2SAT 94
[2017-05-24] MEDS: Albuterol-Ipratropium 3 mL Inhalation Solution NEB SCH (08:42)
--- NOTE | 2017-05-24 11:46 | DRSVH ---
PROCEDURE: CT CHEST WITHOUT CONTRAST ([id number]) INDICATIONS: Respiratory failure TECHNIQUE: Noncontrast 5 mm thick sections acquired from the pulmonary apices to the posterior costophrenic angl es. 7 mm thick coronal and sagittal MIP reformats were then acquired. For radiation dose reduction, the following was used: automated exposure control, adjustment of mA and/or kV according to patient size. COMPARISON: [facility], CT, CT CHEST WO CON, 05/20/2017, 17:15. FINDINGS: Image quality: Excellent. Lungs and pleura: There has been interval near-complete resolution of previous mild bilateral pleural effusions. There remains extensive patchy and consolidated groundglass like opacities within the vadim gs demonstrating minimal interval improvement most notable in the right base. Mediastinum: Heart size is normal. No pericardial effusion. No mediastinal adenopathy by size crit eria. Thoracic aorta and central pulmonary arteries are normal in size. Esophagus is normal in stacy jun. No hiatal hernia. Bones and chest wall: No suspicious bony lesions. No vertebral body compression fractures. No axil giuseppe or supraclavicular adenopathy by size criteria. Thyroid gland is unremarkable. Abdomen: Visualized upper abdominal solid organs and bowel loops appear normal in the absence of con trast. IMPRESSION: 1. Minimal interval improvement of previously identified groundglass opacities within the lungs sugge stive of pneumonia. Other etiologies such as ARDS should be considered if appropriate. 2. Near complete interval resolution of previously identified pleural effusions. Dictated by: Renata Duong M.D. on 05/24/2017 at 10:42 Approved by: Renata Duong M.D. on 05/24/2017 at 10:45
[2017-05-24 12:34] VITALS: BP 93/54; PULSE 98; RESP 16; O2SAT 96
--- NOTE | 2017-05-24 13:07 | PROG NOTE ---
[address] [address] PROGRESS NOTE PATIENT: OBINNA JOHN : 1935 MR#: [id number] ADMIT: 05/19/2017 JOB ID: [id number] DATE: 05/24/2017 INFECTIOUS DISEASE FOLLOWUP NOTE: REASON FOR FOLLOWUP: Bilateral pulmonary infiltrates. INTERVAL HISTORY: The patient reports no additional fevers or chills. He continues to have a minimally productive cough but he is short of breath, especially with exertion. Recall this patient has longstanding rheumatoid arthritis but does not use any oxygen at home and had a recent chest imaging about a year so ago. He now presented with fever and shortness of breath which has required supplemental oxygen and he is still requiring 2 L even at rest and desaturates to some degree with prolonged walking around the small. Overall he thinks his breathing is slightly better than when he came in, though not greatly so. PHYSICAL EXAMINATION: Reveals an afebrile man. Temperature last spiked 72 hours ago and his temp was 38.5. Right now he is 36.6. Pulse 95, respiratory rate 20, saturating well on 2 L, blood pressure 104/57. He is in no acute distress. No conjunctivitis. Lungs notable for pretty good air flow bilaterally with a few crackles at both bases but much more so on the right base than the left when auscultated posteriorly. Cardiac tones still with 2/6 murmurs, otherwise regular rate and rhythm. Abdomen benign. No skin rash. LABORATORIES: Include white count today 13.5 which is completely stable overnight. Creatinine 1.38, also stable. Procalcitonin 0.43, which continues to drift in really a nondiagnostic and not useful range. Urinalysis without white cells. His galactomannan came back at 0.88, which is elevated, but it is worth noting that he was receiving Zosyn when that was drawn which can produce false positives. Other studies are pending including ANCA studies and Aspergillus antibodies. A Fungitell was cancelled though it is unclear why. Cryptococcal antigen was negative. Micro includes numerous negative blood cultures as well as negative sputum, a negative respiratory viral PCR, as well as nasal MRSA PCR. IMAGING: Includes a repeat chest CT which I viewed on the screen and compared to his prior film. It shows mild improvement of the bilateral ground-glass infiltrates. Also noted was resolution of his pleural effusions. It is worth noting that the ground-glass infiltrates are worse at the right base. IMPRESSION: This is a difficult case of an elderly gentleman who came in primarily because of fever. He subsequently has developed considerable shortness of breath in association with an intermittently productive cough and has required supplemental oxygen. Whether or not he has any pulmonary infection remains unclear to me as these changes on chest x-ray and CT could easily represent rheumatoid lung or methotrexate toxicity rather than an infection. There has been some minimal improvement here in the hospital while he has been receiving levofloxacin. RECOMMENDATIONS: 1. I would continue with levofloxacin as our sole antibiotic to complete a one week course. 2. I plan to continue to discuss this case with Dr. Woods of Pulmonary. I wonder whether a BAL would be indicated to try and exclude the possibility of an infection, but I agree with Dr. Woods that what is probably really needed here would be a lung biopsy if these infiltrates fail to improve. The possibility of methotrexate toxicity, [employer], or rheumatoid lung exist, and a much larger biopsy would be needed than can be obtained by BAL or even transbronchial lung biopsy. 3. We will continue to follow this patient; but, should he be discharged over the weekend, I would simply send him out on levofloxacin to finish a one week course with Pulmonary followup. Thank you very much.
[2017-05-24 14:09] LABS: Antiproteinase 3 (PR-3) Abs <3.5 U/mL (0.0-3.5); Perinuclear (P-ANCA) <1:20 titer (Neg:<1:20)
--- NOTE | 2017-05-24 14:51 | PCM.DIMED ---
Raj Lopez DO 05/24/17 1034: Discharge Instructions Date of Service May 24, 2017 Dates of Hospitalization May 19, 2017 at 22:27 Discharge Diagnosis Discharge Diagnosis Acute on chronic respiratory failure, possibly secondary pulmonary fibrosis vs hypersensitivity pneumonitis vs Rheumatoid Lung, vs pulmonary edema from cardiac dysfunction, present on admission, active. Interstitial lung disease, present on admission, active Sepsis, present on admission, resolved Community-acquired pneumonia, present on admission, active Chronic immunosuppression, present on admission, active Systolic congestive heart failure, acute on chronic, present on admission, improved Acute Leukocytosis, present on admission, resolved Acute Elevated blood glucose, present on admission, improved Chronic rheumatoid arthritis, controlled,. MGUS, present on admission, Stable. Medication Instructions Additional med instructions There is likely to continue to take all home meds as previously prescribed, except for methotrexate. Would like you to followup with pulmonology before resuming methotrexate. We would also like you to continue taking the levofloxacin 750 mg once a day for the next 4 days. Take Nystatin oral suspension as needed for thrush. Take Combivent up to 4 times per day for shortness of breath. Test Results Test Results 2 chest x-rays done here in the hospital showed fluid in your lungs, the second showed that it was decreasing due to her interventions. 2 CT scans were also done here in the hospital the first showing a nonspecific pneumonia pattern with some interstitial changes with unknown cause at this time. The second CT scan obtained shows some improvement, however, we would like you to follow up on this as an outpatient. Diet Discharge Diet: Low fat, Low Sodium, Heart Healthy Activity Discharge Activity: No restrictions Call your provider Call your provider for: Fever or Chills, Shortness of breath, Bleeding, Chest pain, Vomitting, Excessive diarrhea, Weakness (unilateral) Patient Instructions Patient Instructions You came into the hospital complaining of shortness of breath. We believe this is likely related to congestive heart failure, possibly related to a pneumonia process, and possibly related to interstitial lung disease. You were seen by infectious disease as well as fishing line winding machine operator here in the hospital both believe that you are fit for discharge at this point. Please continue to take medications as prescribed above. Initiate physical activity as tolerated without over exerting yourself. Follow-up plan We would like you to follow-up with the CHF clinic, as well as your primary care physician. At the appointment with your PCP we suggest you find a fishing line winding machine operator to followup with in either [place] or [place] Follow-up Provider: Tyler uLna MD Follow-up with PCP in: 1 week CHF Clinic: 1 week Jill Potter DO 05/24/17 1858: Discharge Instructions Attending's Statement The patient was seen and examined together with Dr. Lopez on 05/24/17 and I agree with the history, exam and plan as outlined in the note above. Raj Lopez DO May 24, 2017 10:34 Jill Potter DO May 24, 2017 18:58
[2017-05-24] MEDS ORDERED: METO25TA6 PO (15:26)
[2017-05-24] MEDS ORDERED: LEVO750T9 PO (15:26)
[2017-05-24] MEDS ORDERED: IPRA4AER IH (15:26)
[2017-05-24] MEDS ORDERED: NYST1000 PO (15:26)
--- NOTE | 2017-05-24 15:42 | PCM.DC.MED ---
Discharge Summary Date of Service May 24, 2017 Dates of Hospitalization Date of Hospital Admission May 19, 2017 at 22:27 Date of Discharge: May 24, 2017 Providers: Admitting Physician: Majo Malin DO Primary Care Physician: Tyler Luna MD Attending Physician: Jill Potter DO Diagnosis at Time of Discharge Diagnosis at Time of Discharge Acute on chronic respiratory failure, possibly secondary pulmonary fibrosis vs hypersensitivity pneumonitis vs Rheumatoid Lung, vs pulmonary edema from cardiac dysfunction, present on admission, active. Interstitial lung disease, present on admission, active Sepsis, present on admission, resolved Community-acquired pneumonia, present on admission, active Chronic immunosuppression, present on admission, active Systolic congestive heart failure, acute on chronic, present on admission, improved Acute Leukocytosis, present on admission, resolved Acute Elevated blood glucose, present on admission, improved Chronic rheumatoid arthritis, controlled,. MGUS, present on admission, Stable. Consultations ID: Dr. Savage Pulmonology: Dr. Curtis Procedures XRay, CTs & MRIs Chest x-ray performed IMPRESSION: Question of vascular prominence from fever and tachycardia. No interstitial edema is seen. Patchy bilateral densities could be from extensive bilateral pneumonias as well. Question of 15 mm gallstone in the right upper quadrant Dictated by: Kwan Mariscal M.D. on 05/19/2017 at 22:00 CT CHEST WITHOUT CONTRAST IMPRESSION: Nonspecific patchy bilateral pneumonia pattern, with very small bilateral pleural effusions. This appears to have somewhat worsened with reference to the comparison plain films from 05/19/17. Dictated by: Rashad St M.D. on 05/20/2017 at 19:14 Approved by: Rashad St M.D. on 05/20/2017 at 19:16 X-RAY CHEST ONE VIEW, PORTABLE IMPRESSION: Decreasing pulmonary edema. Dictated by: Lamine Perry [facility] Interpreted: Rashad St MD on 05/20/2017 at 9: 47 Approved by: Rashad St M.D. on 05/20/2017 at 14:22 CT CHEST WITHOUT CONTRAST IMPRESSION: 1. Minimal interval improvement of previously identified groundglass opacities within the lungs suggestive of pneumonia. Other etiologies such as ARDS should be considered if appropriate. 2. Near complete interval resolution of previously identified pleural effusions. Dictated by: Renata Duong M.D. on 05/24/2017 at 10:42 Approved by: Renata Duong M.D. on 05/24/2017 at 10:45 . ECG 12 Lead Rate 116, regular rhythm, normal axis, AZ interval 116, QTC 405, "Sinus tachycardia. ST elevation, consider anterior injury Cardiac Echo Impression Echocardiogram Left ventricular size is at the upper limits of normal. Left ventricular systolic function is moderately reduced. The ejection fraction is estimated to be 35-40%. Compared to the prior exam, left ventricular function is moderately decreased. There is hypokinesis along the inferior, inferoseptal, and part of the distal anterolateral and apcial lateral wall. Assessment of diastolic parameters suggests a pseudonormalization pattern, consistent with elevated filling pressures. This is significantly increased compared to the previous study. The right ventricle is normal in size and function. The right ventricular systolic pressure is estimated at 57 mmHg assuming a right atrial pressure of 15 mm Hg. The left atrium is moderately dilated. Right atrial size is normal. There is moderate mitral regurgitation. Compared to the prior echo study, there has been an increase in the severity of mitral regurgitation. There is no hemodynamically significant valvular aortic stenosis. The aortic valve is moderately calcified. There is mild aortic regurgitation. Compared to the prior echo study, there has been a decrease in the severity of aortic regurgitation. There is no other significant valvular heart disease. The aortic root is normal size. Brief History [facility] 81-year-old gentleman with medical history rheumatoid arthritis, MGUS, on methotrexate, Plaquenil, prednisone chronically, hypertension, chronic neuropathy, presents after having an episode feeling " very cold, and found to have a temperature at home of 101F after a month of worsening shortness of breath and change in chronic cough. He was admitted to the hospital for sepsis, community-acquired pneumonia however given treatment with methotrexate, Plaquenil, and prednisone he is presumed to be immunosuppressed being treated for MRSA, pseudomonal, and typical organisms. The patient was started on Lasix as well as antibiotics to cover for supposed infections. A CT scan was completed which showed possible pneumonia combined with interstitial disease of unknown origin. Pulmonology was consulted and began following the case from this point. As the patient was diuresed effectively his breathing became better however he was not able to return to his home baseline without oxygen supplementation. On day of discharge patient moving about appropriately however requiring 1-2 L of oxygen for support. Hospital Course 81-year-old gentleman with rheumatoid arthritis, MGUS, immunosuppressed with methotrexate, prednisone, Plaquenil presents with 1 month of worsening shortness of breath, change in chronic cough, episode of severe chills and cold sweat, found to have elevated white count and chest x-ray demonstrating findings consistent with pneumonia, admitted for sepsis and treatment of community-acquired pneumonia complicated by immunosuppression. Acute on chronic respiratory failure, most likely secondary pulmonary fibrosis possibly secondary to Rheumatoid Lung vs pulmonary edema from cardiac dysfunction, present on admission, active. - CT scan with crazy paving pattern that is non specific. - Echo showed 35-40% LVEF with mitral regurg. LV function moderate decreased from prior echo. - ANCA panel negative, Peripheral Eosinophil count, Hypersensitivity Pneumonitis panel for birds, Fungal, and pneumococcal serologies remain pending. - IgE within normal levels, galactomannan antigen positive, per pulmonology this is likely due to a cross reaction with Zosyn which the patient received on 05/19 - Nasal Eos swab, no eosinophils detected - Hx of Methotrexate and Plaquenil secondary to RA - Azithromycin discontinued per ID - Continue PO antibiotics Levaquin per ID - Holding Methotrexate and Plaquenil. - Lasix discontinued - Pulmonology consulted, Dr. Curtis following - Patient currently tolerating 1-2 L of oxygen will wean down as tolerated. Interstitial lung disease, present on admission, active -Possible interstitial disease noted on CT scan, possibly due to rheumatoid arthritis or methotrexate use -CT scan on 05/24 shows improved pneumonia, however continuing interstitial disease. -Pulmonology consulted Sepsis, present on admission, improving -Patient initially met criteria for sepsis, however infectious disease and does not believe that there is infectious source at this time. -The patient remains on antibiotics as pneumonia cannot be ruled out at this time. -Lactic acid returned to normal levels -05/19 Blood cultures 2, no growth. -05/20 blood cultures 2 no growth Community-acquired pneumonia, present on admission, active -No recent hospitalizations within the last 5 years, however given immunosuppression patient at increased risk for atypical infections. -Continue levofloxacin 750 mg daily -MRSA negative -Respiratory viral PCR negative -Sputum samples Gram stain culture shows normal sergey -Speech evaluation notes mild dysphasia, soft food diet initiated -ID following Chronic immunosuppression, present on admission, active -Continue prednisone, hold methotrexate and Plaquenil. -Infectious disease consultation Systolic congestive heart failure, acute on chronic, present on admission, active -BNP 2326 on admission, Patient denies history of congestive heart failure, significant family history coronary artery disease, congestive heart failure. -Complete echocardiogram shows decreased heart function compared to previous. Ejection fraction 35-40% -Repeat chest x-ray showed decreased pulmonary edema - Lasix discontinued Acute Leukocytosis, present on admission, resolved -Possibly due to pulmonary infection however the patient is currently on steroids for rheumatoid arthritis Acute Elevated blood glucose, present on admission, active -Blood glucose 200 on admission, patient denies history of diabetes -Hemoglobin A1c 6.1 Chronic rheumatoid arthritis, controlled,. -Continue home prednisone MGUS, present on admission, Stable. -Hold Plaquenil DVT prophylaxis: subcutaneous Heparin GI prophylaxis as needed Pain management: Acetaminophen with codeine continued from home Exam Vital Signs (Last) Date Time Temp Pulse Resp B/P Pulse Ox O2 Delivery O2 Flow Rate FiO2 05/24/17 12:34 36.9 98 16 93/54 96 Nasal Cannula 2.00 Exam General: No acute distress, well-developed, well-nourished HEENT: Normocephalic, atraumatic. External ears without defect. Pupils equal, round, and reactive to light and accommodation. Anicteric sclerae, moist conjunctivae. Cardiovascular: Regular rate and rhythm with systolic murmur, no rubs or gallops appreciated Pulmonary: Fine rales auscultated in the lower lung subramanian. moderate wheezes throughout. Able to speak in full sentences today. Nasal cannula in place currently on 1-2 L. Abdomen: Bowel tones present. Soft, nontender, nondistended. Extremities: No clubbing, cyanosis, or edema Skin: Normal temperature, turgor, and texture; no rash, ulcers, or subcutaneous nodules appreciated. Neurological: Cranial nerves grossly intact. Reflexes, coordination, and sensory function within normal limits. Normal muscle strength, tone, and bulk. Psychiatric: Normal mood and affect. Alert and oriented to person, place, and time Test 05/19/17 22:25 05/20/17 00:22 05/20/17 01:02 05/20/17 04:35 Troponin T 0.010ug/L (0.0-0.011) Pro-B-Type Natriuretic Peptide 2326pg/mL (0-486) Legionella pneumophilia Antibodies <0.91OD ratio (0.00-0.90) Pneumococcal Type 1 Antibody <0.3ug/mL (>1.3) Pneumococcal Type 3 Antibody 3.7ug/mL (>1.3) Pneumococcal Type 4 Antibody 0.4ug/mL (>1.3) Pneumococcal Type 8 Antibody 0.6ug/mL (>1.3) Pneumococcal Type 9 Antibody 1.2ug/mL (>1.3) Pneumococcal Type 12 Antibody <0.3ug/mL (>1.3) Pneumococcal Type 14 Antibody 2.7ug/mL (>1.3) Pneumococcal Type 19 Antibody 1.1ug/mL (>1.3) Pneumococcal Type 23 Antibody 0.8ug/mL (>1.3) Pneumococcal Type 26 Antibody 2.0ug/mL (>1.3) Pneumococcal Type 51 Antibody 1.0ug/mL (>1.3) Pneumococcal Type 56 Antibody 0.4ug/mL (>1.3) Pneumococcal Type 57 Antibody >23.2ug/mL (>1.3) Pneumococcal Type 68 Antibody 10.3ug/mL (>1.3) Hemoglobin A1c 6.1% (4.8-5.6) Phosphorus Level 2.1mg/dL (2.5-4.9) Magnesium Level 2.1mg/dL (1.6-2.6) Lactic Acid Level 1.9mmol/L (0.4-2.0) Test 05/20/17 06:30 05/21/17 02:15 05/21/17 07:35 05/22/17 03:05 Urine Color Straw (YELLOW) Urine Appearance Hazy (CLEAR,HAZY) Urine pH 5.5 (5.0-8.0) Urine Specific [place] 1.015 (1.003-1.035) Urine Protein Negativemg/dL (NEG,TRACE) Urine Glucose (UA) 100mg/dL (NEGATIVE) Urine Ketones Negativemg/dL (NEGATIVE) Urine Occult Blood Negative (NEGATIVE) Urine Nitrite Negative (NEGATIVE) Urine Bilirubin Negative (NEGATIVE) Urine Urobilinogen Normalmg/dL (NORMAL) Urine Leukocyte Esterase Negative (NEGATIVE) Urine RBC 0-2/hpf (0-2) Urine WBC 0-5/hpf (0-5) Urine Epithelial Cells Occasional/hpf (NONE-MOD) Urine Crystals None seen (NONE SEEN) Urine Bacteria None/hpf (NONE-FEW) Urine Hyaline Casts None/lpf (NONE) Urine Granular Casts None seen (NONE SEEN) Urine Waxy Casts None seen (NONE SEEN) Urine Red Blood Cell Casts None seen (NONE SEEN) Urine White Blood Cell Casts None seen (NONE SEEN) Urine Mucus None seen (None Seen) Urine Trichomonas None seen (NONE SEEN) Urine Yeast None (NONE SEEN) Urinalysis Comment None Urine Culture Reflexed Not indicated Urine Legionella pneumophilia Ag Negative (Negative) Neutrophils (%) (Auto) 61.8% (40-74) Lymphocytes (%) (Auto) 28.1% (14-46) Monocytes (%) (Auto) 8.3% (4-12) Eosinophils (%) (Auto) 1.2% (0-5) Basophils (%) (Auto) 0.2% (0-3) Total Bilirubin 0.6mg/dL (0.0-1.2) Aspartate Amino Transf (AST/SGOT) 27U/L (0-50) Alanine Aminotransferase (ALT/SGPT) 18U/L (0-44) Alkaline Phosphatase 69U/L (25-160) Lactate Dehydrogenase 274U/L (100-190) Total Protein 7.5g/dL (6.4-8.4) Albumin 3.3g/dL (3.4-5.0) Cryptococcus Antigen Negative (Negative) Fungal Antibodies 42pg/mL (<80) Aspergillus galactomannan Antigen 0.88Index (0.00-0.49) Myeloperoxidase <9.0U/mL (0.0-9.0) Immunoglobulin E 21IU/mL (0-100) Cytoplasmic ANCA (c-ANCA) Antibody <1:20titer (Neg:<1:20) Proteinase 3 (PR3) Antibodies <3.5U/mL (0.0-3.5) Atypical p-ANCA <1:20titer (Neg:<1:20) Perinuclear ANCA (p-ANCA) Antibody <1:20titer (Neg:<1:20) Test 05/24/17 02:20 White Blood Count 13.5th/mm3 (3.8-10.1) Red Blood Count 3.10mil/mm3 (4.40-5.80) Hemoglobin 10.1g/dL (13.8-17.2) Hematocrit 31.6% (41.0-50.0) Mean Corpuscular Volume 101.9fL (81-100) Mean Corpuscular Hemoglobin 32.6pg (27.0-35.0) Mean Corpuscular Hemoglobin Concent 32.0% (32.0-37.0) Red Cell Distribution Width 13.6% (12.3-15.4) Platelet Count 363bil/L (150-400) Sodium Level 137mEq/L (134-144) Potassium Level 4.1mEq/L (3.5-5.2) Chloride Level 94mEq/L (97-108) Carbon Dioxide Level 32mmol/L (18-29) Blood Urea Nitrogen 45mg/dL (8-27) Creatinine 1.38mg/dL (0.76-1.27) Estimat Glomerular Filtration Rate 53mL/min (>59) Glucose Level 147mg/dL (60-99) Calcium Level 9.7mg/dL (8.5-10.1) Procalcitonin 0.43ng/mL (0.00-0.08) Discharge Medications Discharge Medications Ascorbic Acid (Vitamin C) 500 Mg Capsule.er 500 MG PO DAILY (Reported) Aspirin (Aspirin) 81 Mg Tablet 81 MG PO DAILY (Reported) B1/B2/Niacin/B12/Protease (B-Complex with B-12 Tablet) 1 Each Tablet 1 EACH PO BIDWM (Reported) Calcium Carbonate/Vitamin D3 (Calcium 600 + Vit D Tablet) 1 Each Tablet 2 EACH PO DAILY (Reported) Cholecalciferol (Vitamin D3) (Vitamin D3) 2,000 Unit Capsule 2,000 UNIT PO BIDWM (Reported) Flaxseed (Flaxseed Oil) 1,000 Mg Capsule 1,000 MG PO DAILY (Reported) Folic Acid (Folic Acid) 1 Mg Tablet 1 MG PO BID (Reported) Levofloxacin (Levaquin) 750 Mg Tablet 750 MG PO DAILYAC Prescribed by: RAJ GARSIA DO Levothyroxine (Levothyroxine) 25 Mcg Tablet 37.5 MCG PO HS (Reported) Magnesium Oxide (Magnesium Oxide) 400 Mg Tablet 650 MG PO DAILYWD (Reported) Metoprolol Tartrate (Metoprolol Tartrate) 25 Mg Tablet 12.5 MG PO BID Prescribed by: RAJ GARSIA DO Multivitamin (Multi Vitamin Daily) 1 Each Tablet 1 EACH PO DAILY (Reported) Nortriptyline (Nortriptyline) 50 Mg Capsule 50 MG PO BID (Reported) Nystatin (Nystatin) 100,000 Unit/1 Ml Oral.susp 500,000 UNIT PO PCHS Prescribed by: RAJ GARSIA DO Prednisone (PredniSONE) 5 Mg Tab 5 MG PO DAILY (Reported) Saccharomyces Boulardii (Florastor) 250 Mg Capsule 250 MG PO HS (Reported) Ubidecarenone (Coenzyme Q10) 100 Mg Tablet 100 MG PO DAILY (Reported) As needed Acetaminophen/Codeine 300-30mg (Tylenol/Codeine #3) 1 Each Tablet 1-2 TAB PO TID PRN PRN PRN (Reported) Albuterol/Ipratropium (Combivent Respimat Inhal [place]) 120 Spr/4 Gm Inhaler 1 PUFF IH QID PRN PRN For Shortness of Breath Prescribed by: RAJ GARSIA DO Additional med instructions There is likely to continue to take all home meds as previously prescribed, except for methotrexate. Would like you to followup with pulmonology before resuming methotrexate. We would also like you to continue taking the levofloxacin 750 mg once a day for the next 4 days. Take Nystatin oral suspension as needed for thrush. Take Combivent up to 4 times per day for shortness of breath. Followup Plan Disposition: Home Follow-up plan We would like you to follow-up with the CHF clinic, as well as your primary care physician. At the appointment with your PCP we suggest you find a legislators to followup with in either [place] or [place] Discharge Diet: Low fat, Low Sodium, Heart Healthy Discharge Activity: No restrictions Patient Instructions You came into the hospital complaining of shortness of breath. We believe this is likely related to congestive heart failure, possibly related to a pneumonia process, and possibly related to interstitial lung disease. You were seen by infectious disease as well as legislators here in the hospital both believe that you are fit for discharge at this point. Please continue to take medications as prescribed above. Initiate physical activity as tolerated without over exerting yourself. Follow-up Provider: Tyler Luna MD Follow-up with PCP in: 1 week CHF Clinic: 1 week Time spent Greater than 35 minutes spent on documentation and coordination of discharge. Attending Statement The patient was seen and examined together with Dr. Garsia on 05/24/17 and I have added additional information to the note above. copies to: Tyler Luna MD, Adam J DO May 24, 2017 15:41 Jill Potter DO May 26, 2017 15:39 Discharge Diet: Low fat, Low Sodium, Heart Healthy Discharge Activity: No restrictions Patient Instructions You came into the hospital complaining of shortness of breath. We believe this is likely related to congestive heart failure, possibly related to a pneumonia process, and possibly related to interstitial lung disease. You were seen by infectious disease as well as legislators here in the hospital both believe that you are fit for discharge at this point. Please continue to take medications as prescribed above. Initiate physical activity as tolerated without over exerting yourself. Follow-up Provider: Tyler Luna MD Follow-up with PCP in: 1 week CHF Clinic: 1 week Raj Garsia DO May 24, 2017 15:41
--- NOTE | 2017-05-24 17:41 | NUR ---
Social Work Note: Discharge Data& Assessment: Pt was discussed in multidisciplinary rounds, per pt is medically ready to discharge home via POV. Alice Knight is a 81 year old male admitted on 05/19/2017 for pneumonia and sepsis. Per pt is medically improved and ready for discharge. Pt is independent with self care during this hospitalization. Pt declined home health services and will discharge home with family support and resumed outpt PT. No other MD orders identified.No other discharge needs identified. Plan: Per pt is medically ready to discharge home via POV with outpt PT and family support. Pt denies any other needs. No other discharge needs identified. SACHIN Neville
--- NOTE | 2017-05-24 18:44 | NUR ---
Discharge Pt discharged to home with family at ~1715 after home O2 arranged by RT. Pt given discharge educational materials on new prescriptions which were called-in to Pt's pharmacy per Pt's request. Pt also given discharge educational materials on aspiration pneumonia. Pt's IV site D/C'd and intact. Pt's verbalized that they already had an appointment with his MD next Saturday. Pt and verbalized understanding of all discharge instructions. All belongings accompanied Pt at time of discharge.
== END 2017-05-24 14:20 | disposition home or self-care (01) | DRG 871 ==
LOC: SED 20:50 → PCC 22:27
PROVIDERS: ADMIT Internal Medicine; ATTEND Neuromusculoskeletal Medicine & OMM
DX: A41.9 Sepsis, unspecified organism (principal); J18.9 Pneumonia, unspecified organism; I50.23 Acute on chronic systolic (congestive) heart failure; J96.20 Acute and chronic respiratory failure, unspecified whether with hypoxia or hypercapnia; I01.8 Other acute rheumatic heart disease; D84.9 Immunodeficiency, unspecified; Z79.82 Long term (current) use of aspirin; Z79.52 Long term (current) use of systemic steroids; Z87.891 Personal history of nicotine dependence; D72.829 Elevated white blood cell count, unspecified; R73.09 Other abnormal glucose; D47.2 Monoclonal gammopathy; Z66 Do not resuscitate; J84.10 Pulmonary fibrosis, unspecified; M05.10 Rheumatoid lung disease with rheumatoid arthritis of unspecified site

== ENCOUNTER 2017-06-05 12:50 | Inpatient (IN) | payer MEDICARE ==
[~2017-06-05] VITALS: Ht 172.7 cm; Wt 91.0 kg
[~2017-06-05 12:50] MED LIST changes: +IPRA4AER IH; +LEVO750T9 PO; +METO25TA6 PO; +NYST1000 PO; +SACC250C PO; -methotrexate PO
[2017-06-05 13:01] VITALS: BP 128/64; PULSE 104; RESP 16; O2SAT 99
--- NOTE | 2017-06-05 13:02 | ED.REPORT ---
HPI-Chest Pain 40 and Over Date of Service Jun 05, 2017 ED Provider: Kvng Gilmore MD Pt is a 81 year old male with a history of chronic respiratory failure and peripheral neuropathy who presents to the ED via EMS complaining of left-sided chest pain onset around 10:00 today. He c/o associated SOB, headache, and dyspnea with exertion. He denies diaphoresis, fever, and nausea. Pt reports that he was doing his daily walk around the house when he started experiencing his symptoms. He rates his pain as 3/10, stating that is was relieved after taking Nitro that was provided at 12:00 today. The pt sat down after his walk to check his BP and to get oxygen. Nursing Notes Stated Complaint: CHEST PAIN Chief Complaint: Chest pain Nursing Notes Reviewed: Yes (3D FUTURE VISION II not reconciled) Allergies: Coded Allergies: Sulfa (Sulfonamide Antibiotics) (Verified Allergy, Severe, rash, 06/05/17) oxycodone (Verified Allergy, Unknown, paradoxical response "not myself", ) Scheduled Ascorbic Acid (Vitamin C) 500 Mg Capsule.er 500 MG PO DAILY Aspirin (Aspirin) 81 Mg Tablet 81 MG PO DAILY B1/B2/Niacin/B12/Protease (B-Complex with B-12 Tablet) 1 Each Tablet 1 EACH PO DAILY Calcium Carbonate/Vitamin D3 (Calcium 600 + Vit D Tablet) 1 Each Tablet 2 EACH PO DAILY Cholecalciferol (Vitamin D3) (Vitamin D3) 2,000 Unit Capsule 2,000 UNIT PO BIDWM Flaxseed Oil ([place]-3 Flaxseed Oil) 1,000 Mg Capsule 1,000 MG PO DAILY Folic Acid (Folic Acid) 1 Mg Tablet 1 MG PO BID Levothyroxine (Levothyroxine) 25 Mcg Tablet 37.5 MCG PO HS Magnesium Oxide (Magnesium Oxide) 400 Mg Tablet 650 MG PO DAILYWM Multivitamin (Multi Vitamin Daily) 1 Each Tablet 1 EACH PO DAILY Nortriptyline (Nortriptyline) 50 Mg Capsule 50 MG PO BID Prednisone (PredniSONE) 5 Mg Tab 5 MG PO DAILY Turmeric Root Extract (Turmeric) 500 Mg Capsule 500 MG PO DAILY Ubidecarenone (Coenzyme Q10) 100 Mg Tablet 100 MG PO DAILY Scheduled PRN Acetaminophen/Codeine 300-30mg (Tylenol/Codeine #3) 1 Each Tablet 1-2 TAB PO TID PRN PRN PRN Furosemide (Furosemide) 40 Mg Tablet 40 MG PO DAILY PRN PRN >2lb.weight gain Nitroglycerin SL (Nitroglycerin SL) 0.4 Mg Tab.subl 0.4 MG PO Q5MIN PRN PRN For Chest Pain General Time Seen by MD: 12:55 Chief Complaint Chest pain Hx Obtained From: Patient, EMS Arrived By: Ambulance Sudden in Onset?: No Onset Occurred: 5 - 8 hours ago Symptom Duration: Since onset Location: : Chest left Quality: Painful Migration/Movement: Reports: None Severity: Current: Moderate Severity: Maximum: Moderate Recent Healthcare: Recent doctor visit Similar Sx Previous: Yes Past Medical History Past Medical History Notes: He was admitted May 19 for acute on chronic respiratory failure secondary to pulmonary fibrosis versus hypersensitivity pneumonitis or other etiology Echocardiogram EF 35-40%, left ventricular systolic function is moderately reduced, hypokinesis it along the inferior, inferoseptal, and distal anterolateral/apical lateral wall. There are no elevated filling pressures which is a significant increase compared to prior study. He was moderate mitral regurgitation. Past Medical History Monoclonal gammopathy of undetermined significance History rheumatoid arthritis on low dose prednisone and methotrexate and Plaquenil Peripheral neuropathy Severe osteoarthritis Hypothyroidism History complete right shoulder rotator cuff tear sign peripheral artery disease Carotid artery stenosis Interstitial lung disease Mild BPH Reports: Depression Past Surgical History Bilateral total knee replacement Bilateral total hip arthroplasty Lumbar spine fusion Laminectomy Smoking History Former Smoker Social History Alcohol Use: "Social" Drug Use: Denies drug use Other Social History: Ambulatory Status Independent Review of Systems Constitutional: Denies: Fever Respiratory: Reports: Dyspnea on exertion, Shortness of breath Cardiovascular: Reports: Chest pain GI: Denies: Nausea Skin: Denies Diaphoresis Neurologic: Reports: Headache Complete sys rev & neg: except as marked. Physical Exam Initial Vital Signs Vital Signs (First) Date Time Temp Pulse Resp B/P Pulse Ox O2 Delivery O2 Flow Rate FiO2 06/05/17 13:01 36.1 104 16 128/64 99 Room Air Initial VS: Reviewed Head / Eyes: Atraumatic, Normocephalic Neck: Supple, Full range of motion Extremities: Vascular intact, Neuro intact Skin: Warm, Dry, No cyanosis Neurologic: Alert, Oriented, Nonfocal Psychiatric: Mood/affect normal, Behavior normal General/Constitutional: Awake, Alert, No acute distress Respiratory / Chest: Atraumatic, Breath sounds = bilat Diminished breath sounds. Brochospastic with chronic cough. Cardiovascular: Heart rate NL, Regular rhythm, Heart sounds NL Heart Rate / Rhythm: Negative: Tachycardia Normotensive. Trace ankle edema. Abdomen: Atraumatic, Soft, Non-tender Interpretation & Diagnostics Interpretation & Diagnostics: Cultures negative from recent hospitalization Lab Results Interpretation Result Diagram: 06/05/17 1411 06/05/17 1411 Test 06/05/17 14:11 White Blood Count 10.1th/mm3 (3.8-10.1) Red Blood Count 3.00mil/mm3 (4.40-5.80) Hemoglobin 9.5g/dL (13.8-17.2) Hematocrit 30.3% (41.0-50.0) Mean Corpuscular Volume 101.0fL (81-100) Mean Corpuscular Hemoglobin 31.7pg (27.0-35.0) Mean Corpuscular Hemoglobin Concent 31.4% (32.0-37.0) Red Cell Distribution Width 14.1% (12.3-15.4) Platelet Count 510bil/L (150-400) Neutrophils (%) (Auto) 65.8% (40-74) Lymphocytes (%) (Auto) 21.7% (14-46) Monocytes (%) (Auto) 9.7% (4-12) Eosinophils (%) (Auto) 2.3% (0-5) Basophils (%) (Auto) 0.3% (0-3) Prothrombin Time 10.9sec (8.1-12.5) Prothromb Time International Ratio 1.02ratio Sodium Level 136mEq/L (134-144) Potassium Level 4.1mEq/L (3.5-5.2) Chloride Level 98mEq/L (97-108) Carbon Dioxide Level 25mmol/L (18-29) Blood Urea Nitrogen 25mg/dL (8-27) Creatinine 1.09mg/dL (0.76-1.27) Estimat Glomerular Filtration Rate 69mL/min (>59) Glucose Level 130mg/dL (60-99) Lactic Acid Level 1.6mmol/L (0.4-2.0) Calcium Level 8.8mg/dL (8.5-10.1) Magnesium Level 2.4mg/dL (1.6-2.6) Total Bilirubin 0.4mg/dL (0.0-1.2) Aspartate Amino Transf (AST/SGOT) 26U/L (0-50) Alanine Aminotransferase (ALT/SGPT) 15U/L (0-44) Alkaline Phosphatase 75U/L (25-160) Troponin T < 0.010ug/L (0.0-0.011) Total Protein 7.6g/dL (6.4-8.4) Albumin 3.4g/dL (3.4-5.0) Lab Results Interpretation: CBC normal CMP troponin #1 negative ECG Interpretation ECG Interpretation: Sinus rhythm with a rate of 99 LVH No interval change compared with 05/19/17 Time: 01:41 Interpreted by: ED physician Re-Eval/Medical Decision Med Decision/Clinical Course This is an 81-year-old male presents with a chief complaint of "I need to see a pega developer" and a complaint of chest discomfort shortness of breath. The patient is a complex past medical history numerous comorbidities his recent hospital for pneumonia and pulmonary disease, but during his workup I had an echocardiogram suggestive of a severe recent/silent OR with marked wall motion abnormalities, so seen by cardiology next week and recommended a cardiac catheterization, and initial cath is planned for several weeks from now. I treated glycerin to use if he developed his symptoms, and today was doing his regular exertion of walking length of his house for times, developed inappropriate dyspnea and chest pressure, which his administers single nitroglycerin which mostly resolved the discomfort, but led to a blood pressure of 60, so she called EMS. I was now symptom-free. He reports his symptoms are complicated in that he has chronic pain and shoulder discomfort is hard for him to tell the symptoms and fairly minimal-although today's dyspnea and chest pressure were different than he has had a previous. He denies new fever or new cough. He has no additional complaints. His EKG is unchanged without clear acute signs of ischemia. His lab work is normal. He has taken aspirin,'s had Nitropaste applied, as been started on heparin. The case was discussed with cardiology and they are working about possibly schedule his For tomorrow, and to keep the patient nothing by mouth after midnight tonight. Case has been discussed with the hospitalist. Source of Hx: Old records Time of Eval: 14:24 Re-Evaluation/Progress Note: Pt rechecked. Informed pt of plan for admission. Pt understands and agrees with plan for admission. All questions addressed. Consultation #1: Referral / Consult Name: Cassie Chaudhari MD Consulted With: Cardiology Call Returned at: 01:39 Senior Contracts Administrator: Agrees with eval, Agrees with plan Note: Consulted with Cardiology. Discussed pt's case. She will consult with the pt and will talk with Vidarer. Recommends heprizining him and keeping him for overnight. Consultation #2: Referral / Consult Name: Hailey Marshall MD Consulted With: Hospitalist Call Returned at: 14:41 Senior Contracts Administrator: Will see patient, Agrees with eval, Agrees with plan, Accepts admit Differential Diagnosis: Positive: Acute coronary syndrome, Negative: Asthma exacerbation, Dysrhythmia, Esophageal rupture, Gun shot wound chest, Peptic ulcer disease, Pneumomediastinum, Pneumonia, Pneumothorax, Pulmonary edema Counseled Regarding: Diagnosis, Lab results, Need for admission Discharge & Departure Primary Impression: Chest pain Chest pain type: unspecified Qualified Code: R07.9 - Chest pain, unspecified Disposition: ADMITTED TO HOSPITAL Discharge Condition All VS Reviewed: Yes Condition: Stable Referrals: Tyler Luna MD (PCP) Scribe Attestation Portions of this note were transcribed by Ansley Cardenas. I, Dr. Gilmore personally performed the history, physical exam and medical decision-making; I reviewed and confirmed the accuracy of the information in the transcribed note. Signed by: Hank Ambrocio, 06/05/17. copies to: Tyler Luna MD, Matthew F MD Jun 05, 2017 13:02 Ansley Minor Jun 05, 2017 13:18
[2017-06-05] MEDS ORDERED: Nitroglycerin 2% 1 Gm Ointment TOPICAL SCH (13:30)
[2017-06-05] MEDS ORDERED: Heparin 5,000 Unit/mL Inj IVPUSH ONE (13:45)
[2017-06-05] MEDS ORDERED: Heparin 25K Unit/500mL 0.45 NS 25,000 UNIT in IV Premix 1 EACH IV ONE (13:45)
[2017-06-05 14:14] LABS: BASOPHILS % (AUTO) 0.3 % (0-3); EOSINOPHILS % (AUTO) 2.3 % (0-5); MONOCYTES % (AUTO) 9.7 % (4-12); Mean Corpuscular Hemoglobin 31.7 pg (27.0-35.0); NEUTROPHILS % (AUTO) 65.8 % (40-74); Platelet Count 510 bil/L (150-400)
[2017-06-05] MEDS ORDERED: TURM500C7 PO (14:25)
[2017-06-05] MEDS ORDERED: NITR0.4T6 PO (14:25)
[2017-06-05] MEDS ORDERED: FURO40TA4 PO (14:25)
[2017-06-05] MEDS ORDERED: FLAX100038 PO (14:26)
[2017-06-05 14:29] LABS: INR 1.02 ratio
[2017-06-05 14:39] LABS: TROPONIN T < 0.010 ug/L (0.0-0.011)
[2017-06-05 14:46] VITALS: BP 121/50; PULSE 100; RESP 19; O2SAT 98
[2017-06-05 14:48] LABS: Magnesium 2.4 mg/dL (1.6-2.6)
[2017-06-05] MEDS ORDERED: Polyethylene Glycol (PEG) 17 Gm Powder PO PRN (15:05)
[2017-06-05] MEDS ORDERED: Atropine 1 mg/10 mL (Code) Syringe IVPUSH PRN (15:05)
[2017-06-05] MEDS ORDERED: Ondansetron 2 mg/mL 2 mL Inj IVPUSH PRN ×2 (15:05)
[2017-06-05] MEDS ORDERED: Alum-Mag Hydrox-Simeth 30 mL Suspension PO PRN ×2 (15:05)
[2017-06-05] MEDS ORDERED: Senna-Docusate 8.6-50 mg Tablet PO PRN (15:05)
[2017-06-05] MEDS ORDERED: Heparin 25K Unit/500mL 0.45 NS 25,000 UNIT in IV Premix 1 EACH IV SCH (15:05)
--- NOTE | 2017-06-05 15:20 | PCM.HPMED ---
Subjective Date of Service Jun 05, 2017 Primary Provider: Admitting Physician: Hailey Marshall MD Primary Care Physician: Tyler Luna MD Attending Physician: Hailey Marshall MD Admit Status: From the Emergency Department, 23-Hour Observation, [facility] Telemetry Chief Complaint: Chest pain with exertion History of Present Illness: 81-year-old male with a history of chronic respiratory failure secondary to pulmonary fibrosis. He was recently hospitalized from May 19 to May 24 for cysts and community-acquired pneumonia. Patient was on Levaquin for antibiotics and did gradually improve during his hospital course and upon discharge. He also at that time admitted for sepsis with resolution of criteria prior to discharge. Patient also of note has rheumatoid arthritis and is on methotrexate and Actonel. He did have an echocardiogram done previous admission and was found to have an ejection fraction of 35-40% with left ventricular systolic function reduced moderately. Compared to previous study this was moderately decreased. There is hypokinesis along the inferior, inferior septal, or the distal anterolateral and apical lateral wall. Also appear that he had elevated filling pressures. This was significantly increased compared to previous study. He had no significant valvular aortic stenosis. The aortic valve is moderately calcified. There was mild aortic regurgitation. He was moderate mitral regurg and this was found to be in increased. Compared to the previous echo mitral regurgitation has increased. The patient has seen his aws solution architect Dr. Marcial recently and the plan was to get a elective cardiac catheterization performed. However today the patient was walking and developed some chest tightness which resolved with resting and also patient took sublingual nitroglycerin. However his blood pressure dropped to systolic of 60 and hence was brought in by EMS. Since then he has been pain- free. The on-call aws solution architect Dr. Chaudhari was notified and recommended admission IV heparin drip and patient will be scheduled for cardiac catheterization tomorrow a.m. Patient denies any change in shortness of breath. Denies any nausea or vomiting. Patient denies cough. Review of Systems: All other review of systems are reviewed and are negative except for as in history of present illness. Allergies Coded Allergies: Sulfa (Sulfonamide Antibiotics) (Verified Allergy, Severe, rash, 06/05/17) oxycodone (Verified Allergy, Unknown, paradoxical response "not myself", ) Home Medications Scheduled Ascorbic Acid (Vitamin C) 500 Mg Capsule.er 500 MG PO DAILY Aspirin (Aspirin) 81 Mg Tablet 81 MG PO DAILY B1/B2/Niacin/B12/Protease (B-Complex with B-12 Tablet) 1 Each Tablet 1 EACH PO BIDWM Calcium Carbonate/Vitamin D3 (Calcium 600 + Vit D Tablet) 1 Each Tablet 2 EACH PO DAILY Cholecalciferol (Vitamin D3) (Vitamin D3) 2,000 Unit Capsule 2,000 UNIT PO BIDWM Flaxseed (Flaxseed Oil) 1,000 Mg Capsule 1,000 MG PO DAILY Folic Acid (Folic Acid) 1 Mg Tablet 1 MG PO BID Levothyroxine (Levothyroxine) 25 Mcg Tablet 37.5 MCG PO HS Magnesium Oxide (Magnesium Oxide) 400 Mg Tablet 650 MG PO DAILYWD Multivitamin (Multi Vitamin Daily) 1 Each Tablet 1 EACH PO DAILY Nortriptyline (Nortriptyline) 50 Mg Capsule 50 MG PO BID Prednisone (PredniSONE) 5 Mg Tab 5 MG PO DAILY Saccharomyces Boulardii (Florastor) 250 Mg Capsule 250 MG PO HS Ubidecarenone (Coenzyme Q10) 100 Mg Tablet 100 MG PO DAILY Scheduled PRN Acetaminophen/Codeine 300-30mg (Tylenol/Codeine #3) 1 Each Tablet 1-2 TAB PO TID PRN PRN PRN PMH Past Medical History Past Medical History Notes: He was admitted May 19- for acute on chronic respiratory failure secondary to pulmonary fibrosis versus hypersensitivity pneumonitis or other etiology Echocardiogram EF 35-40%, left ventricular systolic function is moderately reduced, hypokinesis it along the inferior, inferoseptal, and distal anterolateral/apical lateral wall. There are no elevated filling pressures which is a significant increase compared to prior study. He was moderate mitral regurgitation. Past Medical History Monoclonal gammopathy of undetermined significance History rheumatoid arthritis on low dose prednisone and methotrexate and Plaquenil Peripheral neuropathy Severe osteoarthritis Hypothyroidism History complete right shoulder rotator cuff tear sign peripheral artery disease Carotid artery stenosis Interstitial lung disease Mild BPH Reports: Depression Past Surgical History Bilateral total knee replacement Bilateral total hip arthroplasty Lumbar spine fusion Laminectomy Family History Family History Father from congestive heart failure at age 82. Mother at 65 years old from myocardial infarction. Brother "waiting to " from congestive heart failure. Social History Hx Alcohol Use: Yes (rare) Hx Substance Use: No Hx Tobacco Use: Yes (QUIT 12 YEARS AGO) Smoking Status: Former Smoker Living Arrangement: with Family Exam Vital Signs Vital Sign - Last Date Time Temp Pulse Resp B/P Pulse Ox O2 Delivery O2 Flow Rate FiO2 06/05/17 14:46 100 19 121/50 98 06/05/17 13:01 36.1 Room Air Lab and Diagnostics Labs Laboratory Tests 72 Hours Test 06/05/17 14:11 06/05/17 15:07 White Blood Count 10.1th/mm3 (3.8-10.1) Red Blood Count 3.00mil/mm3 (4.40-5.80) Hemoglobin 9.5g/dL (13.8-17.2) Hematocrit 30.3% (41.0-50.0) Mean Corpuscular Volume 101.0fL (81-100) Mean Corpuscular Hemoglobin 31.7pg (27.0-35.0) Mean Corpuscular Hemoglobin Concent 31.4% (32.0-37.0) Red Cell Distribution Width 14.1% (12.3-15.4) Platelet Count 510bil/L (150-400) Neutrophils (%) (Auto) 65.8% (40-74) Lymphocytes (%) (Auto) 21.7% (14-46) Monocytes (%) (Auto) 9.7% (4-12) Eosinophils (%) (Auto) 2.3% (0-5) Basophils (%) (Auto) 0.3% (0-3) Prothrombin Time 10.9sec (8.1-12.5) Prothromb Time International Ratio 1.02ratio Sodium Level 136mEq/L (134-144) Potassium Level 4.1mEq/L (3.5-5.2) Chloride Level 98mEq/L (97-108) Carbon Dioxide Level 25mmol/L (18-29) Blood Urea Nitrogen 25mg/dL (8-27) Creatinine 1.09mg/dL (0.76-1.27) Estimat Glomerular Filtration Rate 69mL/min (>59) Glucose Level 130mg/dL (60-99) Lactic Acid Level 1.6mmol/L (0.4-2.0) Calcium Level 8.8mg/dL (8.5-10.1) Magnesium Level 2.4mg/dL (1.6-2.6) Total Bilirubin 0.4mg/dL (0.0-1.2) Aspartate Amino Transf (AST/SGOT) 26U/L (0-50) Alanine Aminotransferase (ALT/SGPT) 15U/L (0-44) Alkaline Phosphatase 75U/L (25-160) Troponin T < 0.010ug/L (0.0-0.011) Total Protein 7.6g/dL (6.4-8.4) Albumin 3.4g/dL (3.4-5.0) Result Diagram: 06/05/17 1411 06/05/17 1411 12-lead ECG Sinus rhythm at a rate of 99 incomplete left bundle branch block present QRS 110 , QTC is 464. Cardiac Echo Impressions nterpretation Summary Left ventricular size is at the upper limits of normal. Left ventricular systolic function is moderately reduced. The ejection fraction is estimated to be 35-40%. Compared to the prior exam, left ventricular function is moderately decreased. There is hypokinesis along the inferior, inferoseptal, and part of the distal anterolateral and apcial lateral wall. Assessment of diastolic parameters suggests a pseudonormalization pattern, consistent with elevated filling pressures. This is significantly increased compared to the previous study. The right ventricle is normal in size and function. The right ventricular systolic pressure is estimated at 57 mmHg assuming a right atrial pressure of 15 mm Hg. The left atrium is moderately dilated. Right atrial size is normal. There is moderate mitral regurgitation. Compared to the prior echo study, there has been an increase in the severity of mitral regurgitation. There is no hemodynamically significant valvular aortic stenosis. The aortic valve is moderately calcified. There is mild aortic regurgitation. Compared to the prior echo study, there has been a decrease in the severity of aortic regurgitation. There is no other significant valvular heart disease. The aortic root is normal size. Assessment & Plan #Chest pain, possible acute coronary syndrome, acute, present on admission -Nothing by mouth after midnight -IV heparin cardiac protocol drip -Check serial troponins -Cardiac catheterization in a.m. #History of chronic systolic congestive heart failure, present on admission -Appears to be compensated at this point in time -Check chest x-ray #Chronic rheumatoid arthritis, controlled -Continue home medication regimen #Monoclonal gammopathy of undetermined significance, present on admission -Stable #Interstitial lung disease, chronic, present on admission -Possibly related to pulmonary fibrosis, rheumatoid arthritis disease, or methotrexate use. #DVT prophylaxis -Patient is on IV cardiac protocol heparin #CODE STATUS -Full code VTE Prophylaxis: Other (IV heparin drip cardiac protocol) Resuscitation Status: CPR: Attempt Resuscitation Time spent 60 minutes Hailey Marshall MD Jun 05, 2017 15:20
[2017-06-05 15:28] VITALS: BP 120/65; PULSE 102; RESP 18; O2SAT 97
[2017-06-05 15:34] VITALS: PULSE 99
[2017-06-05] MEDS ORDERED: Codeine-APAP 30-300 mg Tablet PO PRN (15:35)
[2017-06-05 15:40] LABS: APPEARANCE,URINE HAZY (CLEAR,HAZY); COLOR,URINE YELLOW (YELLOW); OCCULT BLOOD,URINE NEGATIVE (NEGATIVE); PH,URINE 6.5 (5.0-8.0); UROBILINOGEN,URINE NORMAL (NORMAL)
--- NOTE | 2017-06-05 16:26 | DRSVH ---
PROCEDURE: X-RAY CHEST ONE VIEW, PORTABLE ([id number]) INDICATIONS: Altered LOC TECHNIQUE: One view of the chest was acquired. COMPARISON: [facility], CT, CT CHEST WO CON, 05/24/2017, 8:24. [facility], C R, XR CHEST 1VW (PORTABLE), 05/20/2017, 4:28. FINDINGS: Surgical changes and devices: None. Lungs and pleura: Bilateral airspace infiltrates consistent with pneumonia or pulmonary edema. No pl eural effusions or pneumothorax. Mediastinum: Mediastinal contours appear normal. Heart size is normal. Bones and chest wall: No suspicious bony lesions. Overlying soft tissues appear unremarkable. IMPRESSION: Bilateral air space infiltrates consistent with pneumonia or pulmonary edema. Dictated by: Javier Cain M.D. on 06/05/2017 at 14:39 Approved by: Javier Cain M.D. on 06/05/2017 at 14:40
[2017-06-05] MEDS: Sodium Chloride LOK Flush 10 mL Syringe IVFLUSH SCH ×2 (16:30→21:58)
--- NOTE | 2017-06-05 17:52 | NUR ---
Admit to PCC Pt admitted to room [address] [facility]. Pt was transported in [facility] and transferred to hospital bed with minimal assistance. Report received from COTTON STOMPER Concepción. Pt is alert and oriented, transferrs SBA with FWW. PIV in left hand with Heparin drip @ 1000 units. Pt denies pain. Belongings accounted for and charted. Pt's at bedside. Pt is very pleasant and cooperating with all cares.
[2017-06-05 20:52] VITALS: BP 113/56; PULSE 104; RESP 16; O2SAT 95
[2017-06-05] MEDS: Heparin 5,000 Unit/mL Inj IVPUSH PRN (21:58)
[2017-06-05 23:45] VITALS: BP 111/57; PULSE 95; RESP 16; O2SAT 96
[2017-06-06] VITALS (8 sets, daily range): BP systolic 109–124; BP diastolic 61–68; PULSE 95–109; RESP 16–20; O2SAT 95–97
[2017-06-06] MEDS: Codeine-APAP 30-300 mg Tablet PO PRN ×3 (06:40→17:41)
--- NOTE | 2017-06-06 07:05 | NUR ---
Cardiac Denies CP. C/O neuropathy and REED. Obtained new order for APAP# 3 Q4 PRN pain. VSS. No overt complications noted.
[2017-06-06] MEDS: predniSONE 5 mg Tablet PO SCH (08:20)
[2017-06-06] MEDS: Sodium Chloride LOK Flush 10 mL Syringe IVFLUSH SCH ×2 (08:21→16:18)
--- NOTE | 2017-06-06 09:23 | NUR ---
Social Work: Initial Assessment D: Per EMR review, pt is an 81 year old male admitted for chest pain. Pt is Medicare with [employer] supplement; Pt has no LTC or VA benefits. PCP is Tyler Luna MD. NOK is Nessa Knight, , . Advanced directives completed and on file. Radmit score is high, 5/8 and pt was discharged on 05/24 and declined HH needs. TACTICAL DECEPTION PLANS OFFICER met with the patient and souse at bedside. Sw role explained, contact info and d/c planning checklist provided. See initial assessment Pt confirms that he still lives at home with his in a single story home with 5 steps to enter. The patient has been using his 4WW for most ambulation since his last discharge. Pt and express no concerns about their last discharge and state the patient has been doing "well." They continue to decline the need for home health. Pt has never had Skilled rehab/nursing. They anticipate pt to discharge home when medically stable. A: Pt who is I at baseline and lives at home with his . P: Anticipate pt to discharge home once medically stable; TACTICAL DECEPTION PLANS OFFICER to continue to follow for unmet d/c needs. SACHIN Collado Addendum: 06/06/17 at 0927 by LIZ STEWARD Amended: Links added.
[2017-06-06] MEDS ORDERED: Potassium Chloride 20 mEq SR Tablet PO ONE ×2 (09:30→14:25)
[2017-06-06] MEDS ORDERED: Furosemide 10 mg/mL 4 mL Inj IVPUSH ONE (09:30)
[2017-06-06] MEDS: Heparin 5,000 Unit/mL Inj IVPUSH PRN ×2 (11:48→16:10)
--- NOTE | 2017-06-06 13:52 | PCM.PNMED ---
Subjective Date of Service Jun 06, 2017 Subjective Patient without complaint today. No further episodes of chest pain. Exam Vital Signs Vital Sign - Last Date Time Temp Pulse Resp B/P Pulse Ox O2 Delivery O2 Flow Rate FiO2 06/06/17 13:07 36.6 105 16 112/68 97 Nasal Cannula 2.00 Intake and Output 06/05/17 06/05/17 06/06/17 Cumulative From/Thru 14:59 22:59 06:59 06/05/17 13:01 - 06/06/17 06:41 Intake Total 263 ml 806 ml 1069 ml Output Total 675 ml 800 ml 1475 ml Balance -412 ml 6 ml -406 ml Intake Oral 200 ml 516 ml 716 ml IV Total 63 ml 290 ml 353 ml Output Urine Total 675 ml 800 ml 1475 ml # Bowel Movements 1 1 2 Exam Constitutional: Elderly male in no acute distress Head: Normocephalic atraumatic Chest: Some crackles at his bases bilaterally Cor: Irregular rate and rhythm S1-S2 Abdomen: Soft nontender bowel sounds present Tremors: Trace bilateral pedal edema Neuro: Alert and oriented 3, motor strength is intact bilaterally Lab and Diagnostics Result Diagram: 06/06/17 0250 06/05/17 1411 12-lead ECG Sinus rhythm at a rate of 99 incomplete left bundle branch block present QRS 110 , QTC is 464. Cardiac Echo Impressions nterpretation Summary Left ventricular size is at the upper limits of normal. Left ventricular systolic function is moderately reduced. The ejection fraction is estimated to be 35-40%. Compared to the prior exam, left ventricular function is moderately decreased. There is hypokinesis along the inferior, inferoseptal, and part of the distal anterolateral and apcial lateral wall. Assessment of diastolic parameters suggests a pseudonormalization pattern, consistent with elevated filling pressures. This is significantly increased compared to the previous study. The right ventricle is normal in size and function. The right ventricular systolic pressure is estimated at 57 mmHg assuming a right atrial pressure of 15 mm Hg. The left atrium is moderately dilated. Right atrial size is normal. There is moderate mitral regurgitation. Compared to the prior echo study, there has been an increase in the severity of mitral regurgitation. There is no hemodynamically significant valvular aortic stenosis. The aortic valve is moderately calcified. There is mild aortic regurgitation. Compared to the prior echo study, there has been a decrease in the severity of aortic regurgitation. There is no other significant valvular heart disease. The aortic root is normal size. Assessment & Plan #Chest pain, possible acute coronary syndrome, acute, present on admission -Nothing by mouth after midnight -IV heparin cardiac protocol drip -Check serial troponins which were negative -Cardiac catheterization today #History of chronic systolic congestive heart failure, present on admission -Appears to be compensated at this point in time -Check chest x-ray which did show some pulmonary edema so we will give dose of IV Lasix today #Chronic rheumatoid arthritis, controlled -Continue home medication regimen #Monoclonal gammopathy of undetermined significance, present on admission -Stable #Interstitial lung disease, chronic, present on admission -Possibly related to pulmonary fibrosis, rheumatoid arthritis disease, or methotrexate use. #DVT prophylaxis -Patient is on IV cardiac protocol heparin #CODE STATUS -Full code VTE Prophylaxis: Other (IV heparin drip cardiac protocol) Resuscitation Status: CPR: Attempt Resuscitation Time spent 20 minutes Hailey Marshall MD Jun 06, 2017 13:52
--- NOTE | 2017-06-06 16:35 | NUR ---
Activity/SOB Pt requested that he be allowed to walk around unit with his . Pt was ambulated by this RN and a MEDICAID BILLER to assess. Pt became dyspnic and lightheaded after walking approximately 10-15 feet on 2L NC and with FWW. Pt was assisted into W/C, where he recovered almost immediately. Pt was returned to his room and encouraged to start eating meals in chair. Pt agreeable to limited activity at this time and will call nursing staff if he needs to use BR or BSC.
--- NOTE | 2017-06-06 20:20 | NUR ---
POC: Dr. Chaudhari finished a lengthy conversation with the pt and his discussing the POC for the pt based on the results seen on the CXR. The plan is to have a Cardiac Stress Test in the am. Pt stable with a HR in the 90s to 100s. Pt on 1 L NC of oxygen and saturating well. Pt and agreeable on the POC. Will cont. to closely monitor.
[2017-06-07] VITALS (11 sets, daily range): BP systolic 101–117; BP diastolic 54–67; PULSE 92–108; RESP 16–18; O2SAT 94–98
[2017-06-07] MEDS: Codeine-APAP 30-300 mg Tablet PO PRN ×4 (00:14→22:50)
[2017-06-07] MEDS: Sodium Chloride LOK Flush 10 mL Syringe IVFLUSH SCH ×3 (00:23→16:30)
[2017-06-07] MEDS: Heparin 5,000 Unit/mL Inj IVPUSH PRN (00:41)
--- NOTE | 2017-06-07 04:35 | CONS ---
[address] [address] CONSULTATION REPORT PATIENT: OBINNA JOHN : 1935 MR#: [id number] ADMIT: 06/05/2017 JOB ID: [id number] DATE OF SERVICE: 06/06/2017 CHIEF COMPLAINT: Shortness of breath and chest pain. HISTORY OF PRESENT ILLNESS: Patient is an 81-year-old male who was hospitalized at [facility] May 19 to May 24 for shortness of breath, fever and interstitial lung changes on CT scan. He was treated with cefepime, vancomycin, azithromycin and Zosyn. Then, he was sent home on supplemental oxygen. Cardiology is consulted to assist with management because he bounced back on June 05, 2017. There were a couple events that triggered his rehospitalization. The ultimate incident that triggered his rehospitalization was left-sided chest discomfort that occurred while at rest, lasted several minutes, and did not respond completely to sublingual nitro. Apparently, gave him sublingual nitro and one dose was complicated by hypotension. His troponin was negative x3 and EKG showed no ST changes. Cardiology is consulted to assist with management. PAST MEDICAL HISTORY: 1. Interstitial lung disease noted on the CT scan from prior admission. Infectious disease workup showed negative blood cultures, negative sputum and negative galactomannan assay. Negative Streptococcus pneumoniae urine antigen screen. Negative nasopharyngeal specimen PCR, negative cryptococcus antigen, but elevated Aspergillus galactomannan antigen. Negative fungal antibodies. Other items on the differential diagnosis are methotrexate lung toxicity, rheumatoid arthritis and cryptogenic organizing pneumonia. 2. Cardiomyopathy, in the course of prior hospitalization in May 2017 patient was diagnosed with reduced heart function. Echocardiogram at that time demonstrated focal wall motion abnormalities along the anterior and anteroseptal and apical segments, as well as reduced LV systolic function, EF of 35% to 40%. Comparing this study in detail to the current evaluation in 2015, the focal wall motion abnormalities along the anterior and anteroseptal wall are actually exactly the same, just global wall motion that is reduced which could be due to medical illness. 3. Rheumatoid arthritis, the patient is under the care of Dr. Canales and DENIA Cortes. He is on chronic prednisone 5 mg daily, methotrexate and Plaquenil. Hydroxychloroquine was stopped in November 2016. He has been on methotrexate since June 2015. 4. Monoclonal gammopathy of unknown significance, monitor by Dr. Felipe. 5. Osteoporosis, on chronic prednisone for rheumatoid arthritis. Had osteopenia in 2012 with worsening bone health since then. 6. Peripheral polyneuropathy. 7. Hypothyroidism. 8. History of benign prostatic hypertrophy. 9. Neurogenic claudication. 10. History of left carotid bruit by carotid ultrasound March 2016 showed mild scattered plaque and no significant carotid stenosis. PAST SURGICAL HISTORY: 1. Bilateral below-knee arthroplasty. 2. Bilateral total hip arthroplasty. 3. Spine fusion and laminectomy. FAMILY HISTORY: Father of congestive heart failure in his 80s. Mother at 65 from heart attack. Brother with congestive heart failure. SOCIAL HISTORY: He rarely drinks alcohol. He is a former smoker, quit 12 years ago. He is accompanied by his who is a retired RN. REVIEW OF SYSTEMS: Patient reports shortness of breath, particularly when he walks. He has had problems where attempting to walk has caused worsening shortness of breath. In hindsight, the problem started around April 2017 and has been getting progressively worse. Patient relates his concern about exposures from airplanes in his area and wonders how exposures to different toxins in his environment could have contributed to his presentation. He reports chronic back pain, hip pain and joint pain that have been a cause for his jail. Otherwise, 10 point review of systems is negative. ALLERGIES: SULFA DRUGS. CURRENT MEDICATIONS: In the hospital: 1. Aspirin 81 mg daily. 2. Lasix 40 mg daily. 3. Levothyroxine 37.5 mcg daily. 4. Nortriptyline 50 mg twice a day. 5. Heparin drip per ACS protocol. 6. Prednisone 5 mg daily. PHYSICAL EXAMINATION: Vital signs: Temperature 36.6, heart rate 100 beats per minute, blood pressure 117/66, satting 95% on 1 L nasal cannula. Well-nourished, in no apparent distress. Eyes: No scleral icterus. Neck: Supple. No lymphadenopathy. No carotid bruits. Heart: Normal S1, S2. No murmurs, rubs, or gallops. Lungs: Clear to auscultation in the superior portion of the lungs but has crackles at bases bilaterally. Abdomen is soft with positive bowel sounds and no hepatosplenomegaly. Extremities are warm, well perfused. No clubbing, cyanosis or edema. Skin: No rashes or lesions. EKG shows normal sinus rhythm, normal axis, left ventricular hypertrophy. No significant ST-segment changes. Labs show negative troponins times x3 during this admission, and troponin during prior admission May 19, 2017, was negative x1. Otherwise, lipid panel is at goal. Total cholesterol 166, triglycerides 98, HDL 49, LDL 99. Transaminases are negative. Liver function tests are normal. Hematocrit is 30%. I have thoroughly reviewed his imaging, including his chest x-ray July 2016. During this particular imaging, his lungs looked clear. Subsequent imaging, including all his chest films, show evidence of interstitial lung disease. I also thoroughly compared [id number] echocardiograms from 2015 and now. ASSESSMENT AND PLAN: In summary, this is an 81-year-old man with shortness of breath and chest pain. Negative troponin. Normal EKG. Old focal wall motion abnormalities distribution unchanged from prior study in 2014, yet slightly worsening global hypokinesis in setting of worsening lung condition. We had a very detailed, over an hour long, conversation about his chest discomfort and shortness of breath, and the fact that both echocardiograms and lung CT are normal. I do not believe that the primary reason for his chest discomfort and shortness of breath is cardiovascular in nature. I believe that the risk of cardiac catheterization is high due to advanced age, frailty, as well as monoclonal gammopathy of unknown significance which increases the risk of contrast nephropathy. Additionally, if we do find coronary artery disease it may be an innocent bystander and may not be causing his shortness of breath and chest discomfort, and then if intervention is performed then now the evaluation of lung treatments, including biopsy, is now delayed due to his potential anti-platelet therapy requirement. As a result, after a detailed conversation with the patient, his and his primary tender coordinator, Dr. Murphy, we elected to cancel cardiac catheterization and instead pursue noninvasive ischemic evaluation via pharmacologic stress test with myocardial perfusion imaging, and patient agrees. In terms of triggers for his shortness of breath, I notice that he had an adjustment in his rheumatoid arthritis medications, namely Plaquenil was discontinued in November 2016 and then he started developing worsening shortness of breath that he noted in April 2017. Additionally, patient notes multiple exposures to toxins in his environment. 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 We will continue to assist the primary team and followup on the results of his ischemic evaluation. is low risk study we certainly will not pursue invasive diagnostic cardiac catheterization during this admission. Thank you very much for the opportunity to evaluate this patient. TIME: Of note, I spent over an hour of my time visiting with the patient and reviewing his diagnostics, and spent over 50% of the time on counseling and coordinating care. Thank you very much for the opportunity to participate in his treatment.
[2017-06-07] MEDS ORDERED: LORazepam 1 mg Tablet PO ONE (07:40)
[2017-06-07] MEDS: predniSONE 5 mg Tablet PO SCH (07:42)
--- NOTE | 2017-06-07 11:44 | DRSVH ---
PROCEDURE: 1 DAY PHARMACOLOGICAL STRESS TEST Rest and pharmacological stress myocardial perfusion SPECT with gated imaging and ejection fraction RADIOPHARMACEUTICAL: 10.1 mCi Tc-99m tetrafosmin IV at rest and 32.1 mCi Tc-99m tetrafosmin IV at pea k effect of pharmacological stress. A [id number] was performed. INDICATIONS: SHORTNESS OF BREATH AND ABNORMAL ECHO TECHNIQUE: Radiopharmaceutical was injected at peak stress test, and also at rest. SPECT images wer e obtained. SPECT myocardial perfusion images were displayed in short axis, horizontal long axis, an d vertical long axis views. Gated images were reviewed using [employer] software. COMPARISON: None. CARDIAC STRESS: A pharmacologic stress test was performed under the supervision of an attending staff, using an infus ion of Lexiscan. Hemodynamic data: There is hypotensive response to stress. Symptoms: The patient demonstrated mild chest pressure and lightheadedness during stress. Aminophylline: 100 mg administered EKG: No diagnostic changes of ischemia; no ectopy. FINDINGS: Raw data: There is good myocardial uptake of radiotracer. No significant motion artifacts. Left ventricle function: Gated images demonstrate reduced left ventricular wall thickening and diffu se hypokinesis. No segmental wall motion abnormalities. Left ventricle resting end diastolic volume is 153 mL. Left ventricle stress ejection fraction is 23%; normal range is above 45%. Myocardial perfusion: There is normal distribution of activity in the right and left ventricular melly cardium. No fixed or reversible perfusion defects. IMPRESSION: 1. No evidence of myocardial ischemia. 2. Diffusely hypokinetic left ventricle with reduced ejection fraction of 23%. 3. Patient experienced mild chest pressure and demonstrated hypotensive blood pressure response to st ress. PQRS ATTESTATIONS: Measure 322 - Is this imaging test primarily performed on a low-risk surgery patient for preoperative evaluation within 30 days preceding their low-risk non-cardiac surgery? Low-risk surgery is defined as cardiac or myocardial infarction less than 1%, including (but not limited to) endoscopic pr ocedures, superficial procedures, cataract surgery, and excisional breast surgery: Answer: No Measure 323 - Is this imaging test performed primarily for the monitoring of an asymptomatic patient who had percutaneous coronary intervention on the visit date or within 2 years of the visit date? An swer: No Measure 324 - Is this imaging test performed primarily for the initial detection and risk assessment on an asymptomatic, low coronary heart disease patient? Low CHD risk definition = clinicians should consider the maximum number of available patient factors used to estimate risk based on [place] (A TP III criteria), typically age, gender, diabetes, smoking status, and use of blood pressure medicati on, and integrate age appropriate estimates for missing elements, such as LDL or standard blood press ure. Answer: No Dictated by: Valencia Bender M.D. on 06/07/2017 at 11:33 Approved by: Valencia Bender M.D. on 06/07/2017 at 11:37
--- NOTE | 2017-06-07 13:27 | NUR ---
Case Management: Clarification of patient status: inpatient per MD order on 06/07/17. Henry Johnson RN Addendum: 06/07/17 at 1528 by EDWARD JOHNSON ZACK presented with explanation to patient and spouse at the bedside. Signed original placed in chart 1515, copy to patient. Henry Johnson RN
--- NOTE | 2017-06-07 13:56 | PCM.PNMED ---
Subjective Date of Service Jun 07, 2017 Exam Vital Signs Vital Sign - Last Date Time Temp Pulse Resp B/P Pulse Ox O2 Delivery O2 Flow Rate FiO2 06/07/17 13:08 36.9 106 18 110/64 97 Nasal Cannula 1.00 Intake and Output 06/06/17 06/06/17 06/07/17 Cumulative From/Thru 15:00 23:00 07:00 06/05/17 13:01 - 06/07/17 06:51 Intake Total 1275 ml 400 ml 2744 ml Output Total 2200 ml 1000 ml 4675 ml Balance -925 ml -600 ml -1931 ml Intake Oral 1000 ml 400 ml 2116 ml IV Total 275 ml 628 ml Output Urine Total 2200 ml 1000 ml 4675 ml # Bowel Movements 2 Exam Constitutional: Elderly male in no acute distress Head: Normocephalic and medical Chest: Clear to auscultation Cor: Regular rate and rhythm S1-S2 Abdomen: Soft nontender bowel sounds present Extremities: No pedal edema Neuro: Alert and oriented 3, motor strength is intact bilaterally IVs and Medications Medications Reviewed: Medications were reviewed in detail Lab and Diagnostics Result Diagram: 06/07/17 0455 06/05/17 1411 12-lead ECG Sinus rhythm at a rate of 99 incomplete left bundle branch block present QRS 110 , QTC is 464. Cardiac Echo Impressions nterpretation Summary Left ventricular size is at the upper limits of normal. Left ventricular systolic function is moderately reduced. The ejection fraction is estimated to be 35-40%. Compared to the prior exam, left ventricular function is moderately decreased. There is hypokinesis along the inferior, inferoseptal, and part of the distal anterolateral and apcial lateral wall. Assessment of diastolic parameters suggests a pseudonormalization pattern, consistent with elevated filling pressures. This is significantly increased compared to the previous study. The right ventricle is normal in size and function. The right ventricular systolic pressure is estimated at 57 mmHg assuming a right atrial pressure of 15 mm Hg. The left atrium is moderately dilated. Right atrial size is normal. There is moderate mitral regurgitation. Compared to the prior echo study, there has been an increase in the severity of mitral regurgitation. There is no hemodynamically significant valvular aortic stenosis. The aortic valve is moderately calcified. There is mild aortic regurgitation. Compared to the prior echo study, there has been a decrease in the severity of aortic regurgitation. There is no other significant valvular heart disease. The aortic root is normal size. Additional Diagnostics CARDIAC STRESS: A pharmacologic stress test was performed under the supervision of an attending staff, using an infusion of Lexiscan. Hemodynamic data: There is hypotensive response to stress. Symptoms: The patient demonstrated mild chest pressure and lightheadedness during stress. Aminophylline: 100 mg administered EKG: No diagnostic changes of ischemia; no ectopy. FINDINGS: Raw data: There is good myocardial uptake of radiotracer. No significant motion artifacts. Left ventricle function: Gated images demonstrate reduced left ventricular wall thickening and diffuse hypokinesis. No segmental wall motion abnormalities. Left ventricle resting end diastolic volume is 153 mL. Left ventricle stress ejection fraction is 23%; normal range is above 45%. Myocardial perfusion: There is normal distribution of activity in the right and left ventricular myocardium. No fixed or reversible perfusion defects. IMPRESSION: 1. No evidence of myocardial ischemia. 2. Diffusely hypokinetic left ventricle with reduced ejection fraction of 23%. 3. Patient experienced mild chest pressure and demonstrated hypotensive blood pressure response to stress. Assessment & Plan #Chest pain, possible acute coronary syndrome, acute, present on admission -Nothing by mouth after midnight -IV heparin cardiac protocol drip -Check serial troponins which were negative -Appreciate allergy consultation. Patient did have nuclear pharmacological stress test today which did show EF of 23% with diffusely a prokinetic left ventricle. Patient did have chest pain and hypotension with stress. Possibly will have cardiac catheterization to further investigate this. #History of chronic systolic congestive heart failure, present on admission -Appears to be compensated at this point in time -Check chest x-ray which did show some pulmonary edema so we will give dose of IV Lasix today #Chronic rheumatoid arthritis, controlled -Continue home medication regimen #Monoclonal gammopathy of undetermined significance, present on admission -Stable #Interstitial lung disease, chronic, present on admission -Possibly related to pulmonary fibrosis, rheumatoid arthritis disease, or methotrexate use. -Did get pulmonary consultation today to further elucidate lung disease. Appreciate pulmonary consultation. #DVT prophylaxis -Patient is on IV cardiac protocol heparin #CODE STATUS -Full code VTE Prophylaxis: Other (IV heparin drip cardiac protocol) VTE Mechanical Devices: Anti-Embolic stockings Resuscitation Status: CPR: Attempt Resuscitation Time spent 20 minutes Hailey Marshall MD Jun 07, 2017 13:56
--- NOTE | 2017-06-07 15:02 | DRSVH ---
PROCEDURE: CT CHEST WITHOUT CONTRAST ([id number]) INDICATIONS: fu crazy paving TECHNIQUE: Noncontrast 1.0-1.25 mm thick sections acquired from the pulmonary apices to the posterior costophren ic angles. 7 mm thick coronal and sagittal MIP reformats were then acquired. A low radiation dose t echnique was utilized. COMPARISON: CT chest 05/24/2017, 05/20/2017, 07/16/2007 FINDINGS: Image quality: Diagnostic, given the low radiation dose technique. Lungs and pleura: Since last exam, patchy areas of bilateral groundglass opacities show further resol ution but incomplete clearing, compatible with resolving pulmonary edema/pneumonia. No residual effus ions. Mediastinum: Heart size is normal. No pericardial effusion. No mediastinal adenopathy by size crit eria. Thoracic aorta and central pulmonary arteries are normal in size. Esophagus is normal in stacy jun. No hiatal hernia. Bones and chest wall: No suspicious bony lesions. No vertebral body compression fractures. No axil giuseppe or supraclavicular adenopathy by size criteria. Thyroid gland shows probable nodule laterally o n the right. Abdomen: Visualized upper abdomen solid organs and bowel loops appear normal in the absence of contr ast. Gallstone is present. IMPRESSION: 1. Further resolution of diffuse groundglass opacities. Additional followup recommended. 2. Cholelithiasis. Solitary pure ground-glass nodules<6 mm (ground glass or part solid)No followup needed. 6 mm or larg er (ground glass)CT at 6-12 months to confirm persistence, then CT every 2 years until 5 years.6 mm o r larger (part solid)CT at 3-6 months to confirm persistence, then annual CT until 5 years if unchang ed and solid component remains <6 mm. Recommendations do not apply to lung cancer screening, patient s with immunosuppression, or patients with known primary cancer. Dictated by: Rodger Caban M.D. on 06/07/2017 at 14:54 Approved by: Rodger Caban M.D. on 06/07/2017 at 15:01
--- NOTE | 2017-06-07 18:34 | NUR ---
Activity/POC Pt up to chair today with SBA. He has also taken short walks in his room. Pt states that he feels much better, and is experiencing decreasing intensity with his SOB with activity. Pt has had consultation with register repairer and marina sales and service supervisor teams today. Pt received stress test this am, and had chest CT in the afternoon. Both teams have agreed that pt's lungs have improved to enable the pt to undergo planned cardiac cath procedure tomorrow. Pt has been started on NS @ 50mls/hr per MD order, and will be NPO at midnight. Pt and both agreeable to POC
--- NOTE | 2017-06-07 18:35 | CONS ---
[address] [address] CONSULTATION REPORT PATIENT: OBINNA JOHN : 1935 MR#: [id number] ADMIT: 06/05/2017 JOB ID: [id number] DATE OF SERVICE: 06/07/2017 REASON FOR CONSULTATION: Abnormal chest imaging in a patient with recent hospitalization for pneumonia/pneumonitis. REQUESTING CLINICIAN: Hailey Marshall MD. HISTORY OF ILLNESS: The patient is a very pleasant, 81-year-old, white male, former smoker. He has a 80-xikj-ptce history, quitting in the year 1999. He has a long history of rheumatoid arthritis, 1st diagnosed in 1994. His disease has been managed for over 20 years with a combination of low-dose steroids and weekly methotrexate, along with hydroxychloroquine. He has avoided any significant permanent articular destruction from his rheumatoid arthritis and has no documented extra-articular complications from his disease. Five years ago, he was hospitalized for what was diagnosed as a community-acquired pneumonia. This was treated with intravenous antibiotics and he felt that he made a complete recovery from that discrete episode. Last year, he had a brief episode of hemoptysis but then noticed swelling over his left lower jaw and was found to have apical root abscess. This was treated with antibiotics for approximately 10 days and he had resolution of the pain and swelling in his left jaw and no further episodes of hemoptysis. A chest x-ray at the time was reportedly "normal." That study is not available for personal review. He was then in his usual state of health until the 1st week of May 2017, when he had the sudden onset of subjective chills and fever, along with generalized fatigue. 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 His , who is a retired RN, insisted that he seek medical evaluation which he did promptly. Chest imaging at the time demonstrated diffuse infiltrates. He reported fevers, sweats, cough, severe dyspnea and purulent sputum. He was hospitalized at [facility] with a diagnosis of community- acquired pneumonia. Given the presence of immunosuppression, he was seen at the time by both Infectious Disease and Pulmonary. His initial procalcitonin for that admission was normal. However, it did gradually rise to minimally elevation, a maximum of 0.7. All cultures were no growth to date. Imaging at that time showed mixed infiltrates of ground-glass alveolar infiltrates in the apices and more reticular interstitial process at both lung bases. An echocardiogram at that time showed an interval decrease in his systolic function to approximately 40% to 45%, which was a new finding. His methotrexate was held out of concern that he might have an opportunistic infection or methotrexate toxicity and he was discharged to follow up on home oxygen at 1 L. n June 05, 2017, while walking, he developed a pressure-like substernal chest discomfort along with dyspnea to the point of breathlessness. His again insisted that he be evaluated and called 911. He was seen in the emergency department and had no acute changes on his EKG. Repeat chest x-ray appeared to show persistence of the diffuse infiltrates that been present earlier in the month during his hospitalization for pneumonia. He was admitted to the hospital and repeat echocardiogram confirms further depression in his left ventricular systolic function in a global distribution. He has mild to moderate mitral regurgitation. Pulmonary consultation was now requested. He very explicitly and clearly states that he feels significantly better compared to the 1st week of this month. The fevers, rigors, chills, cough, dyspnea and purulent sputum production have all completely resolved. His appetite is excellent. He continues to take his daily prednisone but has held his methotrexate. The hydroxychloroquine was discontinued by his bariatric coordinator several months ago out of concern for retinal toxicity in the longterm. He has had a radionuclide stress test with adenosine analog earlier today that showed no reversible areas of ischemia. However, he had a markedly decreased left ventricular ejection fraction of 23% and a left heart catheterization is now planned to exclude balanced ischemia as a cause for his progressive decline in systolic function. He lives in a single family wood frame home. It is heated by a gas fired forced air furnace. He has a dog that is in the home, but the house itself is on property with large gardens and landscaping that he maintains. In keeping the yard maintained, he uses variety of dusts, fertilizers and herbicides delivered by a backpack and trailer mounted sprayer. He also uses yard equipment that generates quite a bit of dust including a weed alvaro that he operates for hours at a time and which creates a large cloud of dust that surrounds him as he works throughout the yard. He does not routinely use respiratory protection. Interestingly, on the few days just prior to his 1st hospitalization in the 1st week of May, he had spent much of that prior day working in a chicken coop. This sounds like a large coop with a dozen or more chickens along with their bedding, excrement, and molting and feathers. It was after the day he spent working inside this building on a plumbing system that he returned to the house, sat down and experience the subjective chills that 1st brought him to the hospital on May 19. PAST MEDICAL HISTORY: 1. Rheumatoid arthritis. 2. Chronic systolic heart failure with a transthoracic echocardiogram showing an EF of 35% to 40%, decreased from the most recent prior study. 3. Mitral regurgitation. 4. Polyclonal gammopathy. 5. Carotid artery stenosis. 6. Prostatism. 7. Osteoarthritis, particularly of the thoracolumbar spine. 8. Peripheral neuropathy. OUTPATIENT MEDICATIONS: Include ascorbate, aspirin, B12 supplement, calcium carbonate, vitamin D3, cholecalciferol, flaxseed, folate, levothyroxine, magnesium, multi-maxi, nortriptyline, prednisone 5 mg daily, Florastor capsule at h.s., and coenzyme Q 100 daily. DRUG ALLERGIES: 1. SULFA ANTIBIOTICS. 2. OXYCODONE. SOCIAL HISTORY: He is . 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 He is a former smoker. Does not use alcohol. FAMILY HISTORY: Noncontributory for chronic lung disease. REVIEW OF SYSTEMS: As above. He reports a 40-pound weight loss over the last year which was intentional and due to dieting. He reports is appetite is excellent and he denies any abdominal pain, change in bowel habits or early satiety. He does have some difficulty with coughing and some choking spells with most meals and, in fact, underwent us a swallow study during his last hospitalization which reportedly showed no evidence for gross aspiration events. He currently denies fevers, rigors, chills, sweats, hemoptysis, change in voice, difficulty swallowing, new arthralgias, skin rash, adenopathy, PND, orthopnea, lower extremity swelling, history of pulmonary embolism or myocardial infarction. A 12-system review complete; positives noted only as above. PHYSICAL EXAM: This is a somewhat pale-appearing but otherwise well-developed gentleman who speaks in full sentences without accessary muscle use at rest. His blood pressure is 117/66, heart rate is regular at 100, respirations are 16, and his O2 saturation at rest on 1 L by cannula is 95%. He is and has been afebrile since admission. HEENT exam: Conjunctivae are pale. Sclerae are clear and anicteric. Pupils are equal and round. Gaze appears conjugate. Head is normocephalic and atraumatic. Oropharynx is edentulous with partial dentures in place. Visible oral mucosa is moist and free of any exudate. The trachea is midline. There is no submandibular, cervical or supraclavicular lymphadenopathy, mass, crepitus. There is no carotid bruit. Trachea is midline. Lungs are clear to percussion with normal diaphragmatic excursion by percussion. On auscultation, he has slightly diminished breath sounds at both bases with rales heard at both bases, right greater than left. There is no wheezing heard. Cardiac exam shows a regularly regular rhythm with a normal S1 , a soft S2, a 2/6 decrescendo systolic murmur heard best at the left lower sternal border, extending to the right upper sternal border but without radiation to the axilla or carotid. There is no gallop or rub. His abdomen is soft and nontender. There is no mass or organomegaly. There are no bruits. His extremities show no evidence of active synovitis at present. He has pallor to the nail beds with no pathologic change. He has some carpometacarpal osteoarthritis of both hands, left greater than right. Lower extremities show no edema. DATABASE: Per the electronic medical record. His CBC shows a hemoglobin of 9.5, hematocrit of 30, WBC of 10, and he has 510,000 platelets. Chemistries show sodium 136, potassium 4.1, chloride of 98, total CO2 of 25, BUN of 25, creatinine of 1.09. Random glucose of 130, and procalcitonin is normal at 0.07. Chest CT scan from May 24, 2017, is personally reviewed and directly compared to a current study from today. Both are noncontrast studies. There has been interval resolution of many of the ground-glass airspace infiltrates in both upper and lower lung zones. There remains some residual infiltrate in the peripheral left upper lobe and both lower lobes, but there has been significant resolution of the processes present on the earlier CT scan. There are no pleural effusions. While these are noncontrast studies, there is a suggestion of some centimeter-sized pretracheal and subcarinal lymph nodes. IMPRESSION: Pneumonitis/interstitial lung disease. Some of the abnormalities on his recent chest imaging suggest a more chronic process, particularly at both bases where there is more of a reticular nature to the infiltrates. Comparison to the CXR from July of last year will be important if the films can be obtained. Much of the ground-glass infiltrates which are more prominent in the apices and which represent the acute illness of two weeks ago appears to be resolving. I suspect that the acute process was related to his exposure to large amounts of airborne antigen, either willi or biologic from bedding, feed, etc. He had been counseled to avoid further exposure to this environment and also to wear respiratory protection when working in the yard and creating dust that might involve large amounts of animal or vegetable proteins. The evolution of the acute episode from May 19, both clinically and radiographically, is NOT consistent with methotrexate toxicity. The methotrexate was originally held out of concern that he may have an atypical opportunistic infection. I think once his infiltrates have fully resolved, we might consider whether to cautiously reintroduce methotrexate, as it has been very effective in managing his rheumatoid arthritis for a long period of time. Furthermore, I do not believe that the acute episode of May 19 represents rheumatoid, lung, or any of the specific pathologic types such as desquamative interstitial pneumonitis, lymphocytic interstitial pneumonitis or nonspecific interstitial pneumonitis. This is typically not an acute explosive episode such as he experienced and does not tend to resolve spontaneously as he has demonstrated over the subsequent two weeks. Nevertheless, he does have some chronic changes at the bases which may represent some more indolent interstitial disease related to his rheumatoid arthritis or a primary lung disease such as UIP. I think for now, he should continue to be observed off of methotrexate. Repeat clinical evaluation and chest CT without contrast can be performed in six weeks when we would expect that all of the acute infiltrates should be resolved. At that time, complete pulmonary function testing would be helpful to establish a baseline level of function. If methotrexate is re-introduced, he needs to be followed closely and even if he appears to tolerate it initially, he should have serial or at least annual chest x-rays and evaluation to exclude any slowly progressive interstitial process due to the methotrexate. On low-dose prednisone and methotrexate, he might qualify for primary pneumocystis prophylaxis, although he has a SULFA ALLERGY and I do not know that I would add dapsone or pentamidine to him at this point. In summary, this very complex 81-year-old gentleman who had an acute episode of fever, hypoxemia, purulent sputum and diffuse pulmonary infiltrates appears to be resolving both clinically and radiographically some 2-1/2 weeks later. The acute episode does not appear causally related to either his rheumatoid arthritis or the methotrexate but rather is more likely a result of acute hypersensitivity pneumonitis. He has been counseled to avoid other exposures. His methotrexate can be reintroduced within six weeks if he has complete resolution of his remaining ground-glass infiltrates and he can be observed carefully from that time forward. Primary pneumocystis prophylaxis should be considered but will require an alternative regimen to trimethoprim sulfamethoxazole. The greater immediate concern for his overall health is his steadily progressive systolic cardiomyopathy. Plans for a left heart catheterization have been made. We will continue to follow him peripherally while he remains in the hospital. Thank you very much for requesting pulmonary critical care consultation. We will continue to follow peripherally while he remains hospitalized. RAMSEY
[2017-06-08] VITALS (7 sets, daily range): BP systolic 94–119; BP diastolic 57–69; PULSE 97–110; RESP 16–20; O2SAT 94–99
[2017-06-08] MEDS: Codeine-APAP 30-300 mg Tablet PO PRN ×3 (06:12→23:11)
--- NOTE | 2017-06-08 06:31 | NUR ---
Pain c/o chronic leg pain x2 this shift. APAP#3 given and effective. Currently resting without any complaints.
[2017-06-08] MEDS ORDERED: 0.9% Sodium Chloride 1,000 ML ONE (09:50)
[2017-06-08] MEDS ORDERED: Heparin 1,000 Units/500 mL NS Premix IV ONE (09:50)
[2017-06-08] MEDS ORDERED: Nitroglycerin 50,000 mcg/250 mL D5W Premix IV ONE (09:50)
[2017-06-08] MEDS ORDERED: Heparin 10,000 Unit/1,000 mL NS Premix IV ONE (09:50)
[2017-06-08] MEDS ORDERED: Heparin 1,000 Unit/mL 10 mL Inj ONE (09:50)
[2017-06-08] MEDS: Sodium Chloride LOK Flush 10 mL Syringe IVFLUSH SCH ×4 (10:04→21:42)
[2017-06-08] MEDS: predniSONE 5 mg Tablet PO SCH (10:04)
[2017-06-08] MEDS ORDERED: fentaNYL-PF 50 mCg/mL 2 mL Inj ONE (10:34)
--- NOTE | 2017-06-08 11:50 | CS94 ---
[address] [address] DIAGNOSTIC CARDIAC CATHETERIZATION PATIENT: OBINNA JOHN : 1935 MR#: [id number] ADMIT: 06/05/2017 JOB ID: [id number] SERVICE DATE: 06/08/2017 PROCEDURE: Selective right and left coronary angiography, left heart catheterization. INDICATION: New LV dysfunction. PROCEDURAL DETAILS: The reader and the coders are referred to the procedure log for complete details. Briefly, 6-Faroese system. Right groin approach. Standard Mundo catheters and a pigtail. ANGIOGRAPHIC FINDINGS: 1. Right coronary artery is a large dominant vessel. It is free of any significant disease. 2. Left main: No significant disease. 3. LAD: Mild luminal irregularities in its mid segment. No critical stenosis. 4. Ramus intermedius is a moderate to large caliber vessel free of any disease. 5. Circumflex nondominant, free of any significant disease. 6. Left heart catheterization revealed LVEDP of 25. There was a 10 mm gradient upon pullback. There is severe LV dysfunction. LV appears to be mildly dilated. The EF is estimated to be around 25%. 2-3+ MR is noted In summary, nonobstructive coronary artery disease. Severe LV dysfunction. Recommend optimization of medical therapy. MTDD
[2017-06-08] MEDS ORDERED: 0.9% Sodium Chloride 250 ML IV PRN (12:01)
[2017-06-08] MEDS ORDERED: 0.9% Sodium Chloride 1,000 ML IV PRN (12:01)
[2017-06-08] MEDS ORDERED: Ondansetron 2 mg/mL 2 mL Inj IVPUSH PRN (12:05)
--- NOTE | 2017-06-08 15:20 | PCM.PNMED ---
Subjective Date of Service Jun 08, 2017 Subjective Patient had cardiac catheterization done this morning by Dr. Marcial. There were no coronary arterial obstructions noted but did have significant LV dysfunction. Dr. Marcial started patient on low-dose Coreg. And would like to watch the patient here to make sure tolerates this medication. Exam Vital Signs Vital Sign - Last Date Time Temp Pulse Resp B/P Pulse Ox O2 Delivery O2 Flow Rate FiO2 06/08/17 10:10 Supplement Oxygen 06/08/17 10:01 36.6 101 16 94/57 97 1.50 Intake and Output 06/07/17 06/07/17 06/08/17 Cumulative From/Thru 15:00 23:00 07:00 06/05/17 13:01 - 06/08/17 06:26 Intake Total 979 ml 1575 ml 5298 ml Output Total 1250 ml 1100 ml 7025 ml Balance -271 ml 475 ml -1727 ml Intake Oral 840 ml 750 ml 3706 ml IV Total 139 ml 825 ml 1592 ml Output Urine Total 1250 ml 1100 ml 7025 ml # Bowel Movements 1 3 Exam Constitutional: Elderly male in no acute distress Head: Normocephalic atraumatic Chest: Some scant crackles at his bases bilaterally Cor: Regular rate and rhythm S1-S2 with regular 6 systolic ejection murmur Abdomen: Soft nontender bowel sounds present Extremities: No pedal edema Neuro: Alert and oriented 3, motor strength is intact bilaterally Lab and Diagnostics Laboratory Tests 72 Hours Test 06/05/17 15:26 06/05/17 21:00 06/06/17 02:50 06/06/17 09:34 Troponin T < 0.010ug/L (0.0-0.011) 0.010ug/L (0.0-0.011) Activated Partial Thromboplast Time 35.3sec (22.8-33.0) 55.3sec (22.8-33.0) 47.0sec (22.8-33.0) Hemoglobin 9.3g/dL (13.8-17.2) Hematocrit 29.4% (41.0-50.0) Triglycerides Level 90mg/dL (0-149) Cholesterol Level 166mg/dL (100-199) LDL Cholesterol, Calculated 99.000mg/dL (0-99) VLDL Cholesterol 18.000mg/dL HDL Cholesterol 49mg/dL (>39) Cholesterol/HDL Ratio 3.39 (0.0-4.4) Test 06/06/17 15:15 06/07/17 00:03 06/07/17 04:55 06/07/17 07:01 Activated Partial Thromboplast Time 43.9sec (22.8-33.0) 47.7sec (22.8-33.0) 52.3sec (22.8-33.0) Hemoglobin 9.7g/dL (13.8-17.2) Hematocrit 31.4% (41.0-50.0) Procalcitonin 0.07ng/mL (0.00-0.08) Test 06/07/17 07:05 06/07/17 18:25 06/08/17 00:22 06/08/17 05:53 Rheumatoid Factor 142.0IU/mL (0.0-13.9) Activated Partial Thromboplast Time 50.9sec (22.8-33.0) 43.4sec (22.8-33.0) 42.5sec (22.8-33.0) Result Diagram: 06/07/17 1783 06/05/17 1411 12-lead ECG Sinus rhythm at a rate of 99 incomplete left bundle branch block present QRS 110 , QTC is 464. Cardiac Echo Impressions nterpretation Summary Left ventricular size is at the upper limits of normal. Left ventricular systolic function is moderately reduced. The ejection fraction is estimated to be 35-40%. Compared to the prior exam, left ventricular function is moderately decreased. There is hypokinesis along the inferior, inferoseptal, and part of the distal anterolateral and apcial lateral wall. Assessment of diastolic parameters suggests a pseudonormalization pattern, consistent with elevated filling pressures. This is significantly increased compared to the previous study. The right ventricle is normal in size and function. The right ventricular systolic pressure is estimated at 57 mmHg assuming a right atrial pressure of 15 mm Hg. The left atrium is moderately dilated. Right atrial size is normal. There is moderate mitral regurgitation. Compared to the prior echo study, there has been an increase in the severity of mitral regurgitation. There is no hemodynamically significant valvular aortic stenosis. The aortic valve is moderately calcified. There is mild aortic regurgitation. Compared to the prior echo study, there has been a decrease in the severity of aortic regurgitation. There is no other significant valvular heart disease. The aortic root is normal size. Additional Diagnostics CARDIAC STRESS: A pharmacologic stress test was performed under the supervision of an attending staff, using an infusion of Lexiscan. Hemodynamic data: There is hypotensive response to stress. Symptoms: The patient demonstrated mild chest pressure and lightheadedness during stress. Aminophylline: 100 mg administered EKG: No diagnostic changes of ischemia; no ectopy. FINDINGS: Raw data: There is good myocardial uptake of radiotracer. No significant motion artifacts. Left ventricle function: Gated images demonstrate reduced left ventricular wall thickening and diffuse hypokinesis. No segmental wall motion abnormalities. Left ventricle resting end diastolic volume is 153 mL. Left ventricle stress ejection fraction is 23%; normal range is above 45%. Myocardial perfusion: There is normal distribution of activity in the right and left ventricular myocardium. No fixed or reversible perfusion defects. IMPRESSION: 1. No evidence of myocardial ischemia. 2. Diffusely hypokinetic left ventricle with reduced ejection fraction of 23%. 3. Patient experienced mild chest pressure and demonstrated hypotensive blood pressure response to stress. PATIENT: OBINNA JOHN : 1935 MR#: [id number] ADMIT: 06/05/2017 JOB ID: [id number] SERVICE DATE: 06/08/2017 PROCEDURE: Selective right and left coronary angiography, left heart catheterization. INDICATION: New LV dysfunction. PROCEDURAL DETAILS: The reader and the coders are referred to the procedure log for complete details. Briefly, 6-Albanian system. Right groin approach. Standard Mundo catheters and a pigtail. ANGIOGRAPHIC FINDINGS: 1. Right coronary artery is a large dominant vessel. It is free of any significant disease. 2. Left main: No significant disease. 3. LAD: Mild luminal irregularities in its mid segment. No critical stenosis. 4. Ramus intermedius is a moderate to large caliber vessel free of any disease. 5. Circumflex nondominant, free of any significant disease. 6. Left heart catheterization revealed LVEDP of 25. There was a 10 mm gradient upon pullback. There is severe LV dysfunction. LV appears to be mildly dilated. The EF is estimated to be around %. In summary, nonobstructive coronary artery disease. Severe LV dysfunction. Recommend optimization of medical therapy. Dong Murphy MD 06/08/17 1050 Assessment & Plan #Chest pain, possible acute coronary syndrome, acute, present on admission -Nothing by mouth after midnight -IV heparin cardiac protocol drip -Check serial troponins which were negative -Appreciate cardiology consultation. Patient did have nuclear pharmacological stress test today which did show EF of 23% with diffusely a prokinetic left ventricle. Patient did have chest pain and hypotension with stress. Patient did have cardiac catheterization done June 08 with no significant coronary artery disease but global hypokinesis. Patient was started on low-dose Coreg by Dr. Marcial. #History of chronic systolic congestive heart failure, present on admission -Appears to be compensated at this point in time -Check chest x-ray which did show some pulmonary edema so we will give dose of IV Lasix on June 06 #Chronic rheumatoid arthritis, controlled -Continue home medication regimen #Monoclonal gammopathy of undetermined significance, present on admission -Stable #Interstitial lung disease, chronic, present on admission -Possibly related to pulmonary fibrosis, rheumatoid arthritis disease, or methotrexate use. -Did get pulmonary consultation on June 06 to further elucidate lung disease. Appreciate pulmonary consultation. -Pencil Maker recommends home O2 evaluation prior to discharge I respiratory #DVT prophylaxis -Patient is on IV cardiac protocol heparin #CODE STATUS -Full code VTE Prophylaxis: Other (IV heparin drip cardiac protocol) VTE Mechanical Devices: Anti-Embolic stockings Resuscitation Status: CPR: Attempt Resuscitation Time spent 25 minutes Hailey Marshall MD Jun 08, 2017 15:20
--- NOTE | 2017-06-08 18:20 | NUR ---
Cardiac Catheter Lab 1015 - He left for the medical lab director at this time. The Slip Cover Operator was notified. Ensured he had two working peripheral IVs and had urinated before the procedure. 1515 - Received report from Shahla LOPEZ in the CCU who had recovered him in CCU 2009. She said he had a right groin perclose, that no intervention was done during the procedure, he was on 2L of O2, and had completed his 2 hours of ordered bedrest. His right groin site was clean, dry, and intact without any signs of a hematoma. He was complaining of a burning sensation where the Betadine had been scrubbed onto his skin. 1535 - He returned to [facility] 2030. The Betadine was cleaned off his skin with some water and a washcloth. The burning sensation disappeared and per his request this was added to his allergy list. 1604 - Paged Dr. Marshall as the Slip Cover Operator said he noted a slight increase in his ST elevation from this morning. She called back and no new orders were given. 1715 - He got up and walked with a front wheeled walker and stand by assistance around about half of the unit. He tolerated it well. He was, however, per his request on room air. Tested his SpO2 during his walk and noted that his readings were 85-90%. Placed him back on 2L of O2 when he returned to his room. He said he felt slightly short of breath during his walk, but was pleased with his progress. Care continues.
[2017-06-08] MEDS ORDERED: diphenhydrAMINE 25 mg Capsule PO ONE (19:05)
[2017-06-08] MEDS: 0.9% Sodium Chloride 1,000 ML IV SCH ×2 (20:00)
[2017-06-09] VITALS (8 sets, daily range): BP systolic 93–135; BP diastolic 48–76; PULSE 94–108; RESP 17–20; O2SAT 94–97
[2017-06-09 03:45] LABS: Mean Corpuscular Hemoglobin 31.4 pg (27.0-35.0); Mean Corpuscular Volume 102.1 fL (81-100)
--- NOTE | 2017-06-09 06:11 | NUR ---
P) Cardiac/integumentary/Respiratory Pt.'s cardiac rhythm sinus/sinus tach with PVC's,pedal pulses weak but equal bilat. R groin site dressing C/D/I, no signs of hematoma. Pt.'s main complaint is a burning sensation where the antiseptic used in labor relations supervisor dripped on his thigh. Lungs with coarse breath sounds and crackles in the R base, L base very decreased. Pt. also has a red rash in the creases in his groin. I) Meds per 's orders, cont. to monitor. E) Resting quietly, in attendance.
[2017-06-09] MEDS: predniSONE 5 mg Tablet PO SCH (08:56)
[2017-06-09] MEDS: Sodium Chloride LOK Flush 10 mL Syringe IVFLUSH SCH (09:08)
[2017-06-09] MEDS ORDERED: CARV3.122 PO (12:04)
[2017-06-09] MEDS ORDERED: LISI-571 PO (12:04)
--- NOTE | 2017-06-09 12:13 | PCM.DIMED ---
EDISON STEVENS DO 06/09/17 1213: Discharge Instructions Date of Service Jun 09, 2017 Dates of Hospitalization Jun 05, 2017 at 14:54 Discharge Diagnosis Discharge Diagnosis Nonobstructive coronary artery disease History of chronic systolic congestive heart failure Chronic rheumatoid arthritis Monoclonal gammopathy of undetermined significance Interstitial lung disease Medication Instructions Additional med instructions You are being prescribed a medication called Coreg, (carvedilol) this is a beta kim to control both your heart rate and your blood pressure. Please take 3.125 mg of this medication by mouth 2 times a day until directed otherwise by your president and chief commercial officer Dr. Murphy. If you notice that morning or evening blood pressures are below 90/50 please do not take this medication and inform your president and chief commercial officer. You are also been prescribed a medication called lisinopril, this is for blood pressure. Please take 2.5 mg of this medication by mouth daily. Please do not give this medication if systolic blood pressure is less than 95. When you follow up with your primary care provider Dr. Luna (who will also receive a copy of this hospital visit summary) please inform him that his been recommended by Dr. Doyle that you get a CT without contrast of her chest in [address] Doyle also recommends pulmonary function testing in order to establish a baseline level pulmonary function. Continue to hold methotrexate until follow-up, when its reintroduction will be considered Please continue to take all of your regularly prescribed medications as indicated by your primary care provider. Test Results Test Results . Selective right and left coronary angiography, left heart catheterization. ANGIOGRAPHIC FINDINGS: 1. Right coronary artery is a large dominant vessel. It is free of any significant disease. 2. Left main: No significant disease. 3. LAD: Mild luminal irregularities in its mid segment. No critical stenosis. 4. Ramus intermedius is a moderate to large caliber vessel free of any disease. 5. Circumflex nondominant, free of any significant disease. 6. Left heart catheterization revealed LVEDP of 25. There was a 10 mm gradient upon pullback. There is severe LV dysfunction. LV appears to be mildly dilated. Dong Murphy MD 06/08/17 PHARMACOLOGICAL STRESS TEST IMPRESSION: 1. No evidence of myocardial ischemia. 2. Diffusely hypokinetic left ventricle with reduced ejection fraction of 23%. 3. Patient experienced mild chest pressure and demonstrated hypotensive blood pressure response to stress. Dictated by: Valencia Bender M.D. on 06/07/2017 Diet Discharge Diet: Heart Healthy Activity Discharge Activity: Limited until seen by PCP Call your provider Call your provider for: Fever or Chills, Shortness of breath, Bleeding, Chest pain, Vomitting, Excessive diarrhea, Weakness (unilateral) Patient Instructions Patient Instructions Please follow-up with your primary care provider in the next week Please follow-up with your president and chief commercial officer in 2-3 weeks Follow-up plan Discharged home with new medications Coreg and lisinopril Follow-up Provider: Tyler Luna MD Follow-up with PCP in: 1 week Provider: Dong Murphy MD Follow-up in: 2 weeks Hailey Marshall MD 06/09/17 1629: EDISON STEVENS DO Jun 09, 2017 12:13 Hailey Marshall MD Jun 09, 2017 16:29
--- NOTE | 2017-06-09 12:23 | PCM.DC.MED ---
Discharge Summary Date of Service Jun 09, 2017 Dates of Hospitalization Date of Hospital Admission Jun 05, 2017 at 14:54 Date of Discharge: Jun 09, 2017 Providers: Admitting Physician: Hailey Marshall MD Primary Care Physician: Tyler Luna MD Attending Physician: Hailey Marshall MD Diagnosis at Time of Discharge Diagnosis at Time of Discharge Nonobstructive coronary artery disease History of chronic systolic congestive heart failure Chronic rheumatoid arthritis Monoclonal gammopathy of undetermined significance Interstitial lung disease Consultations Cardiology, Dr. Fara Lopez, Dr.Vaderah Lopez Pulmonology/intensive care Dr. Vivek M.D. Procedures XRay, CTs & MRIs . X-RAY CHEST ONE VIEW, PORTABLE IMPRESSION: Bilateral air space infiltrates consistent with pneumonia or pulmonary edema. Dictated by: Javier Cain M.D. on 06/05/2017 CT CHEST WITHOUT CONTRAST IMPRESSION: 1. Further resolution of diffuse groundglass opacities. Additional followup recommended. 2. Cholelithiasis. Solitary pure ground-glass nodules<6 mm (ground glass or part solid)No followup needed. 6 mm or larger (ground glass)CT at 6-12 months to confirm persistence, then CT every 2 years until 5 years.6 mm or larger (part solid)CT at 3-6 months to confirm persistence, then annual CT until 5 years if unchanged and solid component remains <6 mm. Recommendations do not apply to lung cancer screening , patients with immunosuppression, or patients with known primary cancer. Dictated by: Rodger Caban M.D. on 06/07/2017 ECG 12 Lead Sinus rhythm at a rate of 99 incomplete left bundle branch block present QRS 110 , QTC is 464. Cardiac Echo Impression nterpretation Summary Left ventricular size is at the upper limits of normal. Left ventricular systolic function is moderately reduced. The ejection fraction is estimated to be 35-40%. Compared to the prior exam, left ventricular function is moderately decreased. There is hypokinesis along the inferior, inferoseptal, and part of the distal anterolateral and apcial lateral wall. Assessment of diastolic parameters suggests a pseudonormalization pattern, consistent with elevated filling pressures. This is significantly increased compared to the previous study. The right ventricle is normal in size and function. The right ventricular systolic pressure is estimated at 57 mmHg assuming a right atrial pressure of 15 mm Hg. The left atrium is moderately dilated. Right atrial size is normal. There is moderate mitral regurgitation. Compared to the prior echo study, there has been an increase in the severity of mitral regurgitation. There is no hemodynamically significant valvular aortic stenosis. The aortic valve is moderately calcified. There is mild aortic regurgitation. Compared to the prior echo study, there has been a decrease in the severity of aortic regurgitation. There is no other significant valvular heart disease. The aortic root is normal size. Other Diagnostics CARDIAC STRESS: A pharmacologic stress test was performed under the supervision of an attending staff, using an infusion of Lexiscan. Hemodynamic data: There is hypotensive response to stress. Symptoms: The patient demonstrated mild chest pressure and lightheadedness during stress. Aminophylline: 100 mg administered EKG: No diagnostic changes of ischemia; no ectopy. FINDINGS: Raw data: There is good myocardial uptake of radiotracer. No significant motion artifacts. Left ventricle function: Gated images demonstrate reduced left ventricular wall thickening and diffuse hypokinesis. No segmental wall motion abnormalities. Left ventricle resting end diastolic volume is 153 mL. Left ventricle stress ejection fraction is 23%; normal range is above 45%. Myocardial perfusion: There is normal distribution of activity in the right and left ventricular myocardium. No fixed or reversible perfusion defects. IMPRESSION: 1. No evidence of myocardial ischemia. 2. Diffusely hypokinetic left ventricle with reduced ejection fraction of 23%. 3. Patient experienced mild chest pressure and demonstrated hypotensive blood pressure response to stress. PATIENT: OBINNA JOHN : 1935 MR#: [id number] ADMIT: 06/05/2017 JOB ID: [id number] SERVICE DATE: 06/08/2017 PROCEDURE: Selective right and left coronary angiography, left heart catheterization. INDICATION: New LV dysfunction. PROCEDURAL DETAILS: The reader and the coders are referred to the procedure log for complete details. Briefly, 6-[place] system. Right groin approach. Standard [place] catheters and a pigtail. ANGIOGRAPHIC FINDINGS: 1. Right coronary artery is a large dominant vessel. It is free of any significant disease. 2. Left main: No significant disease. 3. LAD: Mild luminal irregularities in its mid segment. No critical stenosis. 4. Ramus intermedius is a moderate to large caliber vessel free of any disease. 5. Circumflex nondominant, free of any significant disease. 6. Left heart catheterization revealed LVEDP of 25. There was a 10 mm gradient upon pullback. There is severe LV dysfunction. LV appears to be mildly dilated. The EF is estimated to be around %. In summary, nonobstructive coronary artery disease. Severe LV dysfunction. Recommend optimization of medical therapy. Dong Murphy MD 06/08/17 1050 Brief History History of present illness by Dr. Marshall 06/05/2017 "81-year-old male with a history of chronic respiratory failure secondary to pulmonary fibrosis. He was recently hospitalized from May 19 to May 24 for cysts and community-acquired pneumonia. Patient was on Levaquin for antibiotics and did gradually improve during his hospital course and upon discharge. He also at that time admitted for sepsis with resolution of criteria prior to discharge. Patient also of note has rheumatoid arthritis and is on methotrexate and Actonel. He did have an echocardiogram done previous admission and was found to have an ejection fraction of 35-40% with left ventricular systolic function reduced moderately. Compared to previous study this was moderately decreased. There is hypokinesis along the inferior, inferior septal, or the distal anterolateral and apical lateral wall. Also appear that he had elevated filling pressures. This was significantly increased compared to previous study. He had no significant valvular aortic stenosis. The aortic valve is moderately calcified. There was mild aortic regurgitation. He was moderate mitral regurg and this was found to be in increased. Compared to the previous echo mitral regurgitation has increased. The patient has seen his first assistant manager Dr. Marcial recently and the plan was to get a elective cardiac catheterization performed. However today the patient was walking and developed some chest tightness which resolved with resting and also patient took sublingual nitroglycerin. However his blood pressure dropped to systolic of 60 and hence was brought in by EMS. Since then he has been pain- free. The on-call first assistant manager Dr. Chaudhari was notified and recommended admission IV heparin drip and patient will be scheduled for cardiac catheterization tomorrow a.m. Patient denies any change in shortness of breath. Denies any nausea or vomiting. Patient denies cough." Hospital Course Chest pain, possible acute coronary syndrome, acute, present on admission -IV Heparin cardiac protocol -Stress test showed EF of 25% with diffusely prokinetic left ventricle -Cardiac catheterization showed nonobstructive coronary artery disease with severe LV dysfunction -Started on Coreg 3.125 mg twice a day, patient tolerating this medication well at time of discharge History of chronic systolic congestive heart failure, present on admission -Appears to be compensated during hospitalization -Echo as above -Lasix given -Remained stable throughout hospital stay Chronic rheumatoid arthritis, controlled -Continue home medication regimen -Pulmonology recommends discontinuation of methotrexate Monoclonal gammopathy of undetermined significance, present on admission -Stable Interstitial lung disease, chronic, present on admission -Possibly related to pulmonary fibrosis, rheumatoid arthritis disease, or methotrexate use. -Saturating well on room air at time of discharge -Recommended repeat CT scan in 6 weeks Exam Vital Signs (Last) Date Time Temp Pulse Resp B/P Pulse Ox O2 Delivery O2 Flow Rate FiO2 06/09/17 10:37 98 06/09/17 09:10 36.6 20 110/60 97 Nasal Cannula 1.00 Exam General: Awake and alert sitting in bedside chair in no acute distress, well- developed, well-nourished, appropriately interactive HEENT: Normocephalic, atraumatic. External ears without defect. Pupils equal, round, and reactive to light and accommodation. Anicteric sclerae, moist conjunctivae, and no lid lag. Oropharynx free of erythema, moist mucosal Neck: Supple with full range of motion. No jugular venous distension. No bruits. No lymphadenopathy or thyromegaly. Cardiovascular: Regular rate and rhythm soft blowing systolic murmur II/ Pulmonary: Clear to auscultation bilaterally with no crackles, wheezes, or rhonchi. Normal respiratory effort with no use of accessory muscles. Abdomen: Bowel tones present. Soft, nontender, nondistended. Extremities: No clubbing, cyanosis, edema Skin: Normal temperature, turgor, and texture Neurological: Cranial nerves grossly intact. Psychiatric: Normal mood and affect. Alert and oriented to person, place, and time. Test 06/05/17 14:11 06/05/17 15:07 06/05/17 21:00 06/06/17 02:50 Neutrophils (%) (Auto) 65.8% (40-74) Lymphocytes (%) (Auto) 21.7% (14-46) Monocytes (%) (Auto) 9.7% (4-12) Eosinophils (%) (Auto) 2.3% (0-5) Basophils (%) (Auto) 0.3% (0-3) Prothrombin Time 10.9sec (8.1-12.5) Prothromb Time International Ratio 1.02ratio Hemoglobin A1c 6.2% (4.8-5.6) Lactic Acid Level 1.6mmol/L (0.4-2.0) Magnesium Level 2.4mg/dL (1.6-2.6) Total Bilirubin 0.4mg/dL (0.0-1.2) Aspartate Amino Transf (AST/SGOT) 26U/L (0-50) Alanine Aminotransferase (ALT/SGPT) 15U/L (0-44) Alkaline Phosphatase 75U/L (25-160) Total Protein 7.6g/dL (6.4-8.4) Albumin 3.4g/dL (3.4-5.0) Urine Color Yellow (YELLOW) Urine Appearance Hazy (CLEAR,HAZY) Urine pH 6.5 (5.0-8.0) Urine Specific [place] 1.010 (1.003-1.035) Urine Protein Negativemg/dL (NEG,TRACE) Urine Glucose (UA) Negativemg/dL (NEGATIVE) Urine Ketones Negativemg/dL (NEGATIVE) Urine Occult Blood Negative (NEGATIVE) Urine Nitrite Negative (NEGATIVE) Urine Bilirubin Negative (NEGATIVE) Urine Urobilinogen Normalmg/dL (NORMAL) Urine Leukocyte Esterase Negative (NEGATIVE) Urine RBC 0-2/hpf (0-2) Urine WBC 0-5/hpf (0-5) Urine Epithelial Cells Occasional/hpf (NONE-MOD) Urine Crystals Amorphous urates (NONE Urine Bacteria None/hpf (NONE-FEW) Urine Hyaline Casts None/lpf (NONE) Urine Granular Casts None seen (NONE SEEN) Urine Waxy Casts None seen (NONE SEEN) Urine Red Blood Cell Casts None seen (NONE SEEN) Urine White Blood Cell Casts None seen (NONE SEEN) Urine Mucus None seen (None Seen) Urine Trichomonas None seen (NONE SEEN) Urine Yeast None (NONE SEEN) Urinalysis Comment None Urine Culture Reflexed Not indicated Troponin T 0.010ug/L (0.0-0.011) Triglycerides Level 90mg/dL (0-149) Cholesterol Level 166mg/dL (100-199) LDL Cholesterol, Calculated 99.000mg/dL (0-99) VLDL Cholesterol 18.000mg/dL HDL Cholesterol 49mg/dL (>39) Cholesterol/HDL Ratio 3.39 (0.0-4.4) Test 06/07/17 07:01 06/07/17 07:05 06/08/17 05:53 06/09/17 03:34 Procalcitonin 0.07ng/mL (0.00-0.08) Rheumatoid Factor 142.0IU/mL (0.0-13.9) Activated Partial Thromboplast Time 42.5sec (22.8-33.0) White Blood Count 11.8th/mm3 (3.8-10.1) Red Blood Count 2.83mil/mm3 (4.40-5.80) Hemoglobin 8.9g/dL (13.8-17.2) Hematocrit 28.9% (41.0-50.0) Mean Corpuscular Volume 102.1fL (81-100) Mean Corpuscular Hemoglobin 31.4pg (27.0-35.0) Mean Corpuscular Hemoglobin Concent 30.8% (32.0-37.0) Red Cell Distribution Width 14.5% (12.3-15.4) Platelet Count 418bil/L (150-400) Sodium Level 140mEq/L (134-144) Potassium Level 4.8mEq/L (3.5-5.2) Chloride Level 101mEq/L (97-108) Carbon Dioxide Level 25mmol/L (18-29) Blood Urea Nitrogen 27mg/dL (8-27) Creatinine 1.14mg/dL (0.76-1.27) Estimat Glomerular Filtration Rate 66mL/min (>59) Glucose Level 137mg/dL (60-99) Calcium Level 8.9mg/dL (8.5-10.1) Discharge Medications Discharge Medications Ascorbic Acid (Vitamin C) 500 Mg Capsule.er 500 MG PO DAILY (Reported) Aspirin (Aspirin) 81 Mg Tablet 81 MG PO DAILY (Reported) B1/B2/Niacin/B12/Protease (B-Complex with B-12 Tablet) 1 Each Tablet 1 EACH PO DAILY (Reported) Calcium Carbonate/Vitamin D3 (Calcium 600 + Vit D Tablet) 1 Each Tablet 2 EACH PO DAILY (Reported) Carvedilol (Carvedilol) 3.125 Mg Tablet 3.125 MG PO BIDWM Prescribed by: EDISON STEVENS DO Cholecalciferol (Vitamin D3) (Vitamin D3) 2,000 Unit Capsule 2,000 UNIT PO BIDWM (Reported) Flaxseed Oil ([place]-3 Flaxseed Oil) 1,000 Mg Capsule 1,000 MG PO DAILY (Reported ) Folic Acid (Folic Acid) 1 Mg Tablet 1 MG PO BID (Reported) Levothyroxine (Levothyroxine) 25 Mcg Tablet 37.5 MCG PO HS (Reported) Lisinopril (Lisinopril) 5 Mg Tablet 2.5 MG PO DAILY Prescribed by: EDISON STEVENS DO Magnesium Oxide (Magnesium Oxide) 400 Mg Tablet 650 MG PO DAILYWM (Reported) Multivitamin (Multi Vitamin Daily) 1 Each Tablet 1 EACH PO DAILY (Reported) Nortriptyline (Nortriptyline) 50 Mg Capsule 50 MG PO BID (Reported) Prednisone (PredniSONE) 5 Mg Tab 5 MG PO DAILY (Reported) Turmeric Root Extract (Turmeric) 500 Mg Capsule 500 MG PO DAILY (Reported) Ubidecarenone (Coenzyme Q10) 100 Mg Tablet 100 MG PO DAILY (Reported) As needed Acetaminophen/Codeine 300-30mg (Tylenol/Codeine #3) 1 Each Tablet 1-2 TAB PO TID PRN PRN PRN (Reported) Furosemide (Furosemide) 40 Mg Tablet 40 MG PO DAILY PRN PRN >2lb.weight gain ( Reported) Nitroglycerin SL (Nitroglycerin SL) 0.4 Mg Tab.subl 0.4 MG PO Q5MIN PRN PRN For Chest Pain (Reported) Additional med instructions You are being prescribed a medication called Coreg, (carvedilol) this is a beta kim to control both your heart rate and your blood pressure. Please take 3.125 mg of this medication by mouth 2 times a day until directed otherwise by your first assistant manager Dr. Murphy. If you notice that morning or evening blood pressures are below 90/50 please do not take this medication and informed your first assistant manager. You are also been prescribed a medication called lisinopril, this is for blood pressure. Please take 2.5 mg of this medication by mouth daily. Please do not give this medication if systolic blood pressure is less than 95. When you follow up with your primary care provider Dr. Luna (who will also receive a copy of this hospital visit summary) please inform him that his been recommended by Dr. Doyle that you get a CT without contrast of her chest in [address] Doyle also recommends pulmonary function testing in order to establish a baseline level pulmonary function. Continue to hold methotrexate until follow-up, when its reintroduction to be considered. Please continue to take all of your regularly prescribed medications as indicated by her primary care provider. Followup Plan Disposition: Discharged to home in stable condition Follow-up plan Discharged home with new medications Coreg and lisinopril Discharge Diet: Heart Healthy Discharge Activity: Limited until seen by PCP Patient Instructions Please follow-up with your primary care provider in the next week Please follow-up with your first assistant manager in 2-3 weeks Follow-up Provider: Tyler Luna MD Follow-up with PCP in: 1 week Provider: Dong Murphy MD Follow-up in: 2 weeks Time spent 60 minutes Attending Statement Patient has been seen and examined by myself with medical artist and agree with above history, physical, assessment and plan. copies to: Tyler Luna MD; Dong Murphy MD, GILES A DO Jun 09, 2017 12:23 Hailey Marshall MD Jun 09, 2017 16:33
--- NOTE | 2017-06-09 14:01 | NUR ---
Discharge Pt and educated on new prescriptions and they demonstrated understanding. Pt received discharge packet with information from the MD. This RN and patient both signed the sheet. Tele removed. IV removed. Pt escorted by staff member down to vehicle.
== END 2017-06-09 14:00 | disposition home or self-care (01) | DRG 287 ==
LOC: EDUNIT# 12:50 → SED 12:50 → EDBD 12:50 → OBSVTOIN 14:54 → PCC 14:54
PROVIDERS: ADMIT Specialist; ATTEND Specialist
PROC: 4A023N7 Measurement of Cardiac Sampling and Pressure, Left Heart, Percutaneous Approach (ICD-10-PCS; principal; 2017-06-08)
PROC: B2151ZZ Fluoroscopy of Left Heart using Low Osmolar Contrast (ICD-10-PCS; 2017-06-08)
PROC: B2111ZZ Fluoroscopy of Multiple Coronary Arteries using Low Osmolar Contrast (ICD-10-PCS; 2017-06-08)
PROC: B2151ZZ Fluoroscopy of Left Heart using Low Osmolar Contrast (ICD-10-PCS; 2017-06-08)
DX: I25.10 Atherosclerotic heart disease of native coronary artery without angina pectoris (principal); I50.22 Chronic systolic (congestive) heart failure; J96.10 Chronic respiratory failure, unspecified whether with hypoxia or hypercapnia; M06.9 Rheumatoid arthritis, unspecified; G62.9 Polyneuropathy, unspecified; J84.10 Pulmonary fibrosis, unspecified; E03.9 Hypothyroidism, unspecified; G89.29 Other chronic pain; I34.0 Nonrheumatic mitral (valve) insufficiency; M47.895 Other spondylosis, thoracolumbar region; Z87.891 Personal history of nicotine dependence; Z79.82 Long term (current) use of aspirin